=== PATIENT | male | born 1945 | race Caucasian/White ===

== ENCOUNTER 2023-04-11 19:18 | Outpatient (REF) | payer MEDICARE, SELFPAY | END 2023-04-11 19:19 | disposition home or self-care (01) | LOC: LAB 19:18 | PROVIDERS: PCP Nurse Practitioner Primary Care; Visit Provider Nurse Practitioner Primary Care | DX: N39.0 Urinary tract infection, site not specified (principal) | CPT/HCPCS: 87086; 87150; 87186 ==

== ENCOUNTER 2023-04-19 10:54 | Outpatient (OUT) | payer MEDICARE, SELFPAY ==
--- OUTSIDE RECORDS SUMMARY | 2023-04-19 11:05 | XMS_ITS | CCD ---
Author Name Unknown Address [address] [place] [address] Organization [facility] Care Team Providers Care Biodiesel Production Associate Name Role Phone JESSICA HUNTER Admitting Unavailable JESSICA HUNTER Attending Unavailable JESSICA HUNTER Consulting Unavailable SMITH, DR SMITH Primary Care Unavailable PAY, DR PRADO Attending Unavailable PAY, DR PRADO Admitting Unavailable ADILENE, DR FABI Kyle Consulting Unavailable MISC, DR SMITH Primary Care Unavailable PAY, DR PRADO Consulting Unavailable RUDY, DR GONZALEZ Consulting Unavailable MISC, DR SMITH Primary Care Unavailable HERNESTO, DR TRACY Admitting Unavailable JESSICA HUNTER Consulting Unavailable HERNESTO, DR TRACY Attending Unavailable FABI COBB Consulting Unavailable VAIBHAV ROJAS Consulting Unavailable Allergies Allergy Classification Reported Allergen(s) Allergy Type Date of Onset Reaction(s) Facility (1 source) Oxytetracycline Drug Allergy 2 [facility] Repository (1 source) Penicillins Drug allergy (disorder) 3 [facility] Problems Active Problems Problem Classification Problem Date Documented Da te Episodic/Chronic E Codes: Fall (1 source) Fall on same level due to ice and snow, initial encounter; Translations: [FALL SAME LEVEL D/T ICE SNOW INIT] Onset: 05-30-2022 Episodic Nausea and vomiting (1 source) Nausea; Translations: [NAUSEA] Onset: 04-28-2022 Episodic Open wounds of head; neck; and trunk (4 sources) Laceration without foreign body of scalp, initial encounter; Translations: [LACERATION W/O FB SCALP INITIAL ENC] Onset: 05-28-2022 Episodic Other aftercare (1 source) 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; Translations: [OTH USP CURRENT DRUG THERAPY] Onset: 05-30-2022 Episodic Other injuries and conditions due to external causes (1 source) Unspecified injury of head, initial encounter; Translations: [UNSPECIFIED INJURY HEAD INITIAL ENC] Onset: 05-30-2022 Episodic Poisoning by nonmedicinal substances (1 source) Toxic effect of carbon monoxide from utility gas, accidental (unintentional), initial encounter; Translations: [TOX EFF CO UTILITY GAS ACC INIT ENC] Onset: 04-28-2022 Episodic Screening and history of mental health and substance abuse codes (1 source) Personal history of nicotine dependence; Translations: [PERSONAL HISTORY OF NICOTINE DEPEND] Onset: 04-28-2022 Episodic Unclassified (3 sources) COUGH, UNSPECIFIED; Translations: [COUGH, UNSPECIFIED] Onset: 04-28-2022 Viral infection (1 source) COVID-19; Translations: [COVID-19] Onset: 04-28-2022 Past or Other Problems Problem Classification Problem Date Documented Da te Episodic/Chronic E Codes: Cut/pierceb (1 source) Contact with knife, initial encounter; Translations: [CONTACT WITH KNIFE INITIAL ENC] Onset: 11-17-2021 Episodic Immunizations and screening for infectious disease (1 source) Encounter for immunization; Translations: [ENCOUNTER FOR IMMUNIZATION] Onset: 11-17-2021 Episodic Open wounds of extremities (4 sources) Laceration without foreign body of left thumb without damage to nail, initial encounter; Translations: [LAC NO FB LT THUMB NO DMG NAIL INIT] Onset: 11-15-2021 Episodic Other aftercare (1 source) terminal carman (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 TECHNIQUE: CT Cervical spine without IV contrast. Coronal and sagittal reformations were performed. Dose reduction techniques were achieved by using automated exposure control and/or adjustment of mA and/or kV according to patient size and/or use of iterative reconstruction technique. FINDINGS: Maintenance of the normal cervical lordosis. Vertebral body heights and alignments exhibit no fracture or listhesis. Age-related intervertebral disc space narrowing, endplate and facet changes. The dens and lateral masses of C1 are symmetric. No prevertebral soft tissue edema. Atherosclerosis of the left greater than right carotid bulbs. The superficial subcutaneous soft tissues are unremarkable. No visualized irregularity of the airway, thoracic inlet or pulmonary apices. IMPRESSION: No acute abnormality Electronically authenticated by: FABI COBB Date: 2022-05-28 20:53 Normal [facility] CT HEAD WO CONon 05-28-2022 CT HEAD WO CON EXAMINATION: CT HEAD WO CON HISTORY: UNSPECIFIED INJURY OF HEAD, INITIAL ENCOUNTER COMPARISON: None. TECHNIQUE: CT examination of the head without IV contrast. Dose reduction techniques were achieved by using automated exposure control and/or adjustment of mA and/or kV according to patient size and/or use of iterative reconstruction technique. FINDINGS: Gabriel/white matter differentiation is intact throughout both cerebral hemispheres. There is a 10 mm low-density focus in the left centrum semiovale. Additional, smaller wedge-shaped low density in the subinsular region as seen on the left measuring approximately 8 mm. No intracranial hemorrhage. No midline shift. No hydrocephalus. The abnormality seen at the genu of the corpus callosum. Bilateral pseudophakia. No herniation. IMPRESSION: No intracranial hemorrhage. There is an ill-defined low-density focus in the left centrum semiovale, and a smaller focus in the left subinsular region, as well as low attenuating density within the corpus callosum. Findings are indeterminate for a chronic abnormality, such as small vessel ischemic change or old infarcts or sequelae of trauma, versus acute, such as diffuse axonal injury or infarct. MRI would be helpful, if clinically indicated. Electronically authenticated by: VAIBHAV ROJAS Date: 2022-05-28 21:17 Normal [facility] l Covid-19 PCR (CVDTBH)on 04-01 SARS-CoV-2 (COVID-19) RNA VINH+probe Ql (Unsp spec) Detected Critically abnormal NOT DETECTED [facility] Comment on above: Result Comment: This test is not yet approved or cleared by the [place] FDA. When there are no FDA-approved or cleared tests available, and other criteria are met, FDA can make tests available under an emergency access mechanism called an Emergency Use Authorization (EUA). The EUA for this test is supported by the [place] of Health and Human Service's declaration that circumstances exist to justify the emergency use of in vitro diagnostics for the detection and/or diagnosis of the virus that causes COVID-19. This EUA will remain in effect for the duration of the COVID-19 declaration justifying emergency of IVDs, unless it is terminated or revoked by the FDA (after which the test may no longer be used). Performed By: #### C VDTB #### [facility] [address] [place] [address] Dr. James Green INFLUENZA A AND B [facility] 04-01 [facility] SEE BELOW Normal [facility] ospital Comment on above: Result Comment: Nega tive for Flu A protein angiten. Infection due to Flu A cannot be ruled out. Flu A angiten in the sample may be below the detection limit of the test. Performed By: #### I NFLUAB #### [facility] [address] [place] [address] Dr. James [facility] SEE BELOW Normal [facility] Comment on above: Result Comment: Nega tive for Flu B protein antigen. Infection due to Flu B cannot be ruled out. Flu B antigen in the sample may be below the detection limit of the test. Performed By: #### I NFLUAB #### [facility] [address] [place] [address] Dr. James Green INFLUENZA A AG Negative Normal NEGATIVE SEE COMMENT [facility] Comment on above: Performed By: #### I NFLUAB #### [facility] [address] [place] [address] Dr. James Green INFLUENZA B AG Negative Normal NEGATIVE SEE COMMENT [facility] Comment on above: Performed By: #### I NFLUAB #### [facility] [address] [place] [address] Dr. James Green XR CHEST 1 Von 04-27-2022 XR CHEST 1 V EXAMINATION: XR CHES T 1 V HISTORY: SHORTNESS OF BREATH COMPARISON: 10/23/2013 TECHNIQUE: Portable FINDINGS: LUNGS: Low lung volumes. left upper lobe nodule, stable, granuloma. No new focal parenchymal infiltrates VASCULATURE: No increased pulmonary vasculature. PLEURA: No pneumothorax, effusion, or pleural thickening. CARDIAC: No cardiomegaly or cardiac silhouette abnormality. MEDIASTINUM: Calcifications consistent with old granulomatous disease. Aortic atherosclerosis BONES: No fracture or visible bone lesion. OTHER: Negative. IMPRESSION: Low volume exam. No focal infiltrate Electronically authenticated by: FABI HEAD Date: 2022-04-27 07:47 Normal [facility] Encounters Encounter Date Encounter Type Care Provider Facility Start: 05-28-2022 End: 05-28-[address] DOCTOR HERNANDEZ Facility:[facility] Start: 04-27-2022 End: 04-27-[address] JOHAN ROSEN Facility:[facility] Start: 11-15-2021 End: 11-15-2021 ambulatory JESSICA ELSA Facility:[facility] Payers Date Payer Category Payer Unknown [id number] 1961 Medicare [id number] 1945 Unknown [id number] [id number] 1945 Unknown [id number] [id number] [id number] 1945 Unknown [id number] Summary Purpose Family History No Family History Records Found Advance Directives No Advanced Directives Records Found Additional Source Comments (unrecognized sect ion and content) No Status Records Found INFORMATION SOURCE (unrecogn ized section and content) DATE CREATED AUTHOR 05/30/2022 [facility] FOR RECORDS PERTAINING TO PATIENTS WHO ARE OR HAVE BEEN ENROLLED IN A CHEMICAL DEPENDENCY/SUBSTANCEABUSE PROGRAM, SOME INFORMATION MAY BE OMITTED. This clinical summary was aggregated from multiple sources. Caution should be exercised in using it in the provision of clinical care. This summary normalizes information from multiple sources, and as a consequence, information in this document may materially change the coding, format and clinical context of patient data. In addition, data may be omitted in some cases. CLINICAL DECISIONS SHOULD BE BASED ON THE PRIMARY CLINICAL RECORDS. [facility] [employer] provides no warranty or guarantee of the accuracy or completeness of information in this document.
[2023-04-19 11:47] LABS: Alanine Aminotransferase 26 U/L (16-63); Albumin Globulin Ratio 0.8; Albumin Level 3.6 g/dL (3.4-5.0); Alkaline Phosphatase 55 U/L (46-116); Anion Gap 13.8; Aspartate Amino Transferase 24 U/L (15-37); BUN Creatinine Ratio 20.7; Bilirubin Total 0.3 mg/dL (0.2-1.0); Calcium 9.5 mg/dL (8.5-10.1); Chloride 103 mmol/L (98-107); Chol HDL Ratio 3.7; Cholesterol 172 mg/dL (<=200); Estimated Average Glucose 117 mg/dL; Estimated GFR (African America >60 (>=60); Estimated GFR (Non-African Ame 51 (>=60); Globulin 4.5 g/dL; Glucose 96 mg/dL (74-106); Glycohemoglobin A1C 5.7 % (4.5-6.2); HDL Cholesterol 46 mg/dL (40-60); LDL Cholesterol Calculated 101.8 mg/dL; Potassium 4.8 mmol/L (3.5-5.1); Sodium 139 mmol/L (136-145); Total Protein 8.1 g/dL (6.4-8.2); Triglycerides 121 mg/dL (<=150); VLDL CHOLESTEROL 24.2 mg/dL
[2023-04-19 12:24] LABS: Basophils Percent Auto 0.5 % (0.2-2.0); Eosinophils Absolute Auto 0.2 10^3/uL (0.0-0.7); Eosinophils Percent Auto 2.5 % (0.9-7.0); Hematocrit 35.4 % (42.0-54.0); Hemoglobin 11.2 g/dL (14.0-18.0); Immature Granulocytes Abs Auto 0.01 10^3/uL (0.00-0.03); Immature Granulocytes Pct Auto 0.1 % (0.0-0.5); Lymphocytes Absolute Auto 1.7 10^3/uL (1.2-3.8); Lymphocytes Percent Auto 20.9 % (20.5-60.0); Mean Corpuscular HGB Conc 31.6 g/dL (29.9-35.2); Mean Corpuscular Hemoglobin 29.2 pg (25.9-34.0); Mean Corpuscular Volume 92.2 fL (80.0-94.0); Mean Platelet Volume 12.4 fL (9.5-13.5); Monocytes Absolute Auto 0.4 10^3/uL (0.3-0.8); Monocytes Percent Auto 4.7 % (1.7-12.0); Neutrophils Absolute Auto 5.7 10^3/uL (1.4-6.5); Neutrophils Percent Auto 71.3 % (43.0-75.0); Platelet Count 204 10^3/uL (150-450); Red Blood Count 3.84 10^6/uL (4.70-6.10); White Blood Count 7.9 10^3/uL (4.0-11.0)
[2023-04-20 06:09] LABS: HCV Ab Non Reactive (Non Reactive); HIV Ab/p24 Ag Screen Non Reactive (Non Reactive)
== END 2023-04-19 10:55 | disposition home or self-care (01) ==
LOC: LAB 10:56
PROVIDERS: PCP Nurse Practitioner Primary Care; Visit Provider Nurse Practitioner Primary Care
DX: Z00.00 Encounter for general adult medical examination without abnormal findings (principal); Z11.59 Encounter for screening for other viral diseases; Z11.4 Encounter for screening for human immunodeficiency virus [HIV]; Z13.6 Encounter for screening for cardiovascular disorders
CPT/HCPCS: 36415; 80053; 80061; 83036; 85025; 86803; 87389

== ENCOUNTER 2023-04-30 22:44 | Observation (INO) | payer MEDICARE, SELFPAY ==
[2023-04-30 22:49] VITALS: PULSE 47
--- OUTSIDE RECORDS SUMMARY | 2023-04-30 22:50 | XMS_ITS | CCD ---
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 TECHNIQUE: [...] FABI COBB Date: 2022-05-28 20:53 Normal [facility] CT HEAD WO CONon 05-28-2022 CT [...] VAIBHAV ROJAS Date: 2022-05-28 21:17 Normal [facility] Covid-19 PCR (CVDTBH)on 04-01 SARS-CoV-2 (COVID-19) RNA VINH+probe Ql (Unsp spec) Detected Critically abnormal NOT DETECTED [facility] Comment on above: Result Comment: This test is not yet az roved or cleared by the [place] FDA. When there are no FDA-approved or cleared tests available, and other criteria are met, FDA can make tests available under an emergency access mechanism called an Emergency Use Authorization (EUA). The EUA for this test is supported by the Cl[employer] Fin[employer] of Health and Human Service's declaration that [...] used). Performed By: #### C VDTB #### [facility] [address] [place] [address] Dr. James Green INFLUENZA A AND B [facility] 04-01 [facility] SEE BELOW Normal [facility] Comment on above: Result Comment: Negative for Flu A prote in angiten. Infection due to Flu A cannot be ruled out. Flu A angiten in the sample may be below the detection limit of the test. Performed By: #### I NFLUAB #### [facility] [address] [place] [address] Dr. James Green INFLUBANNER SEE BELOW Normal [facility] Comment on above: Result Comment: Negative for Flu B prote in antigen. Infection due to Flu B cannot be ruled out. Flu B antigen in the sample may be below the detection limit of the test. Performed By: #### I NFLUAB #### [facility] [address] [place] [address] Dr. James Green INFLUENZA A AG Negative Normal NEGATIVE SEE COMMENT [facility] Comment on above: Performed By: #### INFLUAB #### [facility] [address] [place] [address] Dr. James Green INFLUENZA B AG Negative Normal NEGATIVE SEE COMMENT [facility] Comment on above: Performed By: #### INFLUAB #### [facility] [address] [place] [address] Dr. James Green XR CHEST 1 Von [...] by: FABI HEAD Date: 2022-04-27 07:47 Normal [facility] Encounters Encounter Date Encounter Type Care Provider Facility Start: 05-28-2022 End: 05-28-[address] DOCTOR HERNANDEZ Facility:[facility] Start: 04-27-2022 End: 04-27-[address] JOHAN ROSEN Facility:[facility] Start: 11-15-2021 End: 11-15-2021 ambulatory JESSICA ELSA Facility:[facility] Payers Date Payer Category Payer Unknown [id number] 1961 Medicare [id number] 1945 Unknown [id number] [id number] [id number] 1945 Unknown [id number] [id number] [id number] 1945 Unknown [id number] [id number] [id number] Summary Purpose Family History No Family History Records Found Advance Directives No Advanced Directives Records Found Additional Source Comments (unrecognized sect ion and content) No Status Records Found INFORMATION SOURCE (unrecogn ized section and content) DATE CREATED AUTHOR 05/30/2022 [facility] FOR RECORDS PERTAINING TO PATIENTS WHO [...] BE BASED ON THE PRIMARY CLINICAL RECORDS. [employer] provides no warranty or guarantee of the accuracy or completeness of information in this document.
--- NOTE | 2023-04-30 22:51 | ECG_ITS ---
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
--- NOTE | 2023-04-30 22:51 | XR_ITS ---
The [address] [address] Patient Name: FLACO ACOSTA MRN: [id number] date: 1945 Sex: M Assigned Patient Location: ER Current Patient Location: ER Accession/Order Number: [id number] Exam Date: 04/30/2023 23:00 Report Date: 05/01/2023 00:00 At the request of: DEMARCUS ERIC Procedure: XR chest 1V CHEST X-RAY HISTORY: Chest pain COMPARISON: None. TECHNIQUE: 1 view chest is submitted for review. FINDINGS: There is trace blunting of the left costophrenic angle. The lungs are adequately expanded without evidence for acute infiltrate or effusion. The cardiac silhouette is enlarged. Pulmonary vascularity is mildly prominent. Osseous structures do not demonstrate any acute abnormality. . . XR/XR chest 1V IMPRESSION: Cardiomegaly with trace left-sided effusion. Electronically authenticated by: SHAHNAZ DUNCAN Date: 05/01/2023 00:00
[2023-04-30 22:52] VITALS: BP 165/67; PULSE 46; RESP 20; TEMP 36.5; O2SAT 98; BMI 32.5
[2023-04-30 23:10] LABS: Basophils Percent Auto 0.5 % (0.2-2.0); Eosinophils Absolute Auto 0.4 10^3/uL (0.0-0.7); Eosinophils Percent Auto 5.3 % (0.9-7.0); Hematocrit 31.6 % (42.0-54.0); Hemoglobin 10.2 g/dL (14.0-18.0); Immature Granulocytes Abs Auto 0.01 10^3/uL (0.00-0.03); Immature Granulocytes Pct Auto 0.1 % (0.0-0.5); Lymphocytes Percent Auto 26.8 % (20.5-60.0); Mean Corpuscular HGB Conc 32.3 g/dL (29.9-35.2); Mean Corpuscular Hemoglobin 29.7 pg (25.9-34.0); Mean Corpuscular Volume 91.9 fL (80.0-94.0); Mean Platelet Volume 12.2 fL (9.5-13.5); Monocytes Absolute Auto 0.6 10^3/uL (0.3-0.8); Neutrophils Absolute Auto 4.5 10^3/uL (1.4-6.5); Neutrophils Percent Auto 59.3 % (43.0-75.0); Platelet Count 167 10^3/uL (150-450); Red Blood Count 3.44 10^6/uL (4.70-6.10); Red Cell Distribution Width 14.6 % (11.0-15.0); White Blood Count 7.5 10^3/uL (4.0-11.0)
[2023-04-30] MEDS: ASPIRIN 81 MG TAB.CHEW 162 MG PO (23:16)
[2023-04-30] MEDS: ATROPINE SULFATE 0.4 MG/ML VIAL IVP (23:16)
[2023-04-30 23:26] LABS: Anion Gap 12.5; BUN Creatinine Ratio 20.5; Calcium 9.2 mg/dL (8.5-10.1); Carbon Dioxide 24.4 mmol/L (21.0-32.0); Chloride 106 mmol/L (98-107); Estimated GFR (African America 56 (>=60); Estimated GFR (Non-African Ame 47 (>=60); Glucose 137 mg/dL (74-106); Potassium 4.9 mmol/L (3.5-5.1); Sodium 138 mmol/L (136-145); Troponin I High Sensitivity 13.9 pg/mL (4.0-76.1)
[2023-04-30 23:55] VITALS: BP 139/67; PULSE 47; RESP 16; O2SAT 98
--- NOTE | 2023-04-30 23:55 | ED_ITS ---
HPI - Chest Pain General Chief Complaint: Chest Pain Stated Complaint: Chest Pain Time Seen by Provider: 04/30/23 22:47 Source: patient Mode of arrival: Carry Limitations: no limitations History of Present Illness HPI narrative: patient arrived by private car - brought by his caregiver, who calls him Eric - for evaluation after about a month and a half of shortness of breath with exertion. He had 2 cardiac stents placed in 2004 at one of the hospitals in [place] - he believes it is [facility]. [facility] and he said that it is very difficult to get an appointment in a timely manner. He told me that he experienced midline lower abdominal chest pain near the bottom of my rib cage that has been intermittent since it began yesterday. His caregiver told me that any time he gets up to walk around or exert himself over the last few weeks, he appears out of breath. No fever or cough. Related Data Home Medications Medication Instructions Recorded Confirmed calcium carbonate 600 mg-vitamin 1 tab PO DAILY 04/30/23 04/30/23 D3 10 mcg (400 unit) tablet (Calcium 600 + D(3)) clopidogrel 75 mg tablet 75 mg PO DAILY 04/30/23 04/30/23 cyanocobalamin (vitamin B-12) 1,000 mcg PO DAILY 04/30/23 04/30/23 1,000 mcg capsule diltiazem HCl 180 mg 180 mg PO DAILY 04/30/23 04/30/23 capsule,extended release 24 hr (Cardizem CD) metoprolol tartrate 50 mg tablet 50 mg PO DAILY 04/30/23 04/30/23 (Lopressor) spironolactone 25 mg tablet 25 mg PO DAILY 04/30/23 04/30/23 (Aldactone) vit C 250 mg-vit E 90 mg-zinc 40 1 tab PO BID 04/30/23 04/30/23 mg-copper 1 [id number] capsule (PreserVision AREDS-2) Allergies Allergy/AdvReac Type Severity Reaction Status Date / Time Penicillins Allergy Hives Verified 04/30/23 23:01 [facility] Social History Smoking status: Former smoker Exam Narrative Exam Narrative: Nurses notes and vital signs reviewed and patient is not hypoxic. afebrile General: Well-appearing and in no apparent distress. Skin: Warm, dry, no pallor noted. Eye: Pupils are equal, round and EOMI. No scleral icterus. Cardiovascular: Regular Rate and Rhythm without murmur, gallop or rub. Respiratory: No accessory muscle use or respiratory distress. Lungs are clear to auscultation, no wheezing, rales or rhonchi Chest Wall: no tenderness, crepitus or subcutaneous emphysema Musculoskeletal: normal ROM, no calf or popliteal tenderness, no lower extremity edema/swelling GI: Abdomen is soft, non-distended. Normal bowel sounds. No tenderness to palpation. No rebound, guarding, or rigidity noted. Neurological: A&O x4. No cranial nerve dysfunction observed. No truncal ataxia. Moves all extremities. Sensation intact. Psychiatric: Cooperative and interactive. Normal mood and affect. Constitutional Vital Signs, click to edit/add: Last Vital Signs Temp 97.7 F 04/30/23 22:52 Pulse 48 L 05/01/23 01:14 Resp 20 05/01/23 01:14 BP 124/49 05/01/23 01:14 Pulse Ox 96 05/01/23 01:14 O2 Del Method Room Air 05/01/23 01:14 Course Vital Signs Vital signs: Vital Signs Temperature 97.7 F 04/30/23 22:52 Pulse Rate 46 L 04/30/23 22:52 Respiratory Rate 20 04/30/23 22:52 Blood Pressure 165/67 H 04/30/23 22:52 Pulse Oximetry 98 04/30/23 22:52 Oxygen Delivery Method Room Air 04/30/23 22:52 Temperature 97.7 F 04/30/23 22:52 Pulse Rate 48 L 05/01/23 01:14 Respiratory Rate 20 05/01/23 01:14 Blood Pressure 124/49 05/01/23 01:14 Pulse Oximetry 96 05/01/23 01:14 Oxygen Delivery Method Room Air 05/01/23 01:14 MDM - Chest Pain MDM Narrative Medical decision making narrative: Patient took two nitroglycerin at home for the pain, which is now gone . He was placed on air sampling and monitoring and EKG obtained. Blood drawn and sent for evaluation. Chest x-ray obtained. The patient was found to be bradycardic - HR 47bpm. He takes metoprolol and cardizem daily. No recent change in med dose. He was given Atropine without any change. CBC, BMP normal except for elevated BUN and Cr - they were the same on 04/19 and I do not have values prior to 04/19 for comparison. Patient and - with the patient's permission - caregiver informed of results and of my suspicion that the bradycardia is due to the cardizem and the metoprolol that he takes - and that the bradycardia is causing the exertional dyspnea. Repeat troponin obtained at 0054. Result was decreased when compared to the 1st. Call placed to the tele-hospitalist to discuss admission, SDU, telemetry, Observation. Plan is for the beta victor hugo and calcium channel victor hugo to be held and reassess when the heart rate increases. Dr Hayden and I discussed the case and she agreed to admit the patient to Dr Sheppard's service. Medical Records Data Attestation: I reviewed the patient's medical records. Medical records narrative: The patient has a card revealiong that at [facility] he had a stent placed in the LAD and the RCA. Lab Data Attestation: I reviewed the patient's lab results. Labs: Lab Results 04/30/23 05/01/23 Range/Units 22:52 00:57 WBC 7.5 (4.0-11.0) 10^3/uL RBC 3.44 L (4.70-6.10) 10^6/uL Hgb 10.2 L (14.0-18.0) g/dL Hct 31.6 L (42.0-54.0) % MCV 91.9 (80.0-94.0) fL MCH 29.7 (25.9-34.0) pg MCHC 32.3 (29.9-35.2) g/dL RDW 14.6 (11.0-15.0) % Plt Count 167 (150-450) 10^3/uL MPV 12.2 (9.5-13.5) fL Neut % (Auto) 59.3 (43.0-75.0) % Lymph % (Auto) 26.8 (20.5-60.0) % [place] % (Auto) 8.0 (1.7-12.0) % Eos % (Auto) 5.3 (0.9-7.0) % Baso % (Auto) 0.5 (0.2-2.0) % Neut # (Auto) 4.5 (1.4-6.5) 10^3/uL Lymph # (Auto) 2.0 (1.2-3.8) 10^3/uL [place] # (Auto) 0.6 (0.3-0.8) 10^3/uL Eos # (Auto) 0.4 (0.0-0.7) 10^3/uL Baso # (Auto) 0.0 (0.0-0.1) 10^3/uL Abs Immat Gran (auto) 0.01 (0.00-0.03) 10^3/uL Imm/Tot Granulo (auto) 0.1 (0.0-0.5) % Sodium 138 (136-145) mmol/L Potassium 4.9 (3.5-5.1) mmol/L Chloride 106 (98-107) mmol/L Carbon Dioxide 24.4 (21.0-32.0) mmol/L Anion Gap 12.5 BUN 30.0 H (7.0-18.0) mg/dL Creatinine 1.46 H (0.70-1.30) mg/dL Est GFR ( Amer) 56 L (>=60) Est GFR (Non-Af Amer) 47 L (>=60) BUN/Creatinine Ratio 20.5 Glucose 137 H (74-106) mg/dL Calcium 9.2 (8.5-10.1) mg/dL Troponin I High Sens 13.9 12.6 (4.0-76.1) pg/mL NT-Pro-B Natriuret Pep 783.0 (<=1800.0) pg/mL Imaging Data Chest x-ray: Radiologist's impression: Patient Name: FLACO ACOSTA MRN: [id number] date: 1945 Sex: M Assigned Patient Location: ER Current Patient Location: ER Accession/Order Number: [id number] Exam Date: 04/30/2023 23:00 Report Date: 05/01/2023 00:00 At the request of: DEMARCUS ERIC Procedure: XR chest 1V CHEST X-RAY HISTORY: Chest pain COMPARISON: None. TECHNIQUE: 1 view chest is submitted for review. FINDINGS: There is trace blunting of the left costophrenic angle. The lungs are adequately expanded without evidence for acute infiltrate or effusion. The cardiac silhouette is enlarged. Pulmonary vascularity is mildly prominent. Osseous structures do not demonstrate any acute abnormality. . . IMPRESSION: Cardiomegaly with trace left-sided effusion. Electronically authenticated by: SHAHNAZ DUNCAN Date: 05/01/2023 00:00 ECG Data Attestation: I personally reviewed and interpreted this ECG as follows: Interpretation: EKG interpretation: Emergency Department physician interpretation. Valeriy sinus rhythm at 47bpm. Normal axis, 1st degree AVB. no ST segment elevation or deep depression. Discharge Plan Discharge Chief Complaint: Chest Pain Clinical Impression: Symptomatic bradycardia, Exertional dyspnea Patient Disposition: Admitted as Observation Time of Disposition Decision: 23:57 Prescriptions / Home Meds: No Action clopidogrel 75 mg tablet 75 mg PO DAILY metoprolol tartrate [Lopressor] 50 mg tablet 50 mg PO DAILY diltiazem HCl [Cardizem CD] 180 mg capsule,extended release 24hr 180 mg PO DAILY spironolactone [Aldactone] 25 mg tablet 25 mg PO DAILY PreserVision AREDS-2 250-90-40-1 mg capsule 1 tab PO BID cyanocobalamin (vitamin B-12) 1,000 mcg capsule 1,000 mcg PO DAILY calcium carbonate-vitamin D3 [Calcium 600 + D(3)] 600 mg-10 mcg (400 unit) tablet 1 tab PO DAILY Additional Instructions: SHAMA ferrer, OBS Referrals: EVAN ESCOBAR APRN [Primary Care Provider] - 1 week
[2023-05-01] VITALS (43 sets, daily range): BP systolic 124–157; BP diastolic 46–70; PULSE 43–61; RESP 10–22; TEMP 36.5; O2SAT 95–99; BMI 33.4
[2023-05-01 01:18] LABS: Troponin I High Sensitivity 12.6 pg/mL (4.0-76.1)
--- OUTSIDE RECORDS SUMMARY | 2023-05-01 02:49 | XMS_ITS | CCD ---
Author Name Unknown Address [address] [place] [address] Organization [facility] Care Team Providers Care Oakes Machine Operator Name Role Phone JESSICA HUNTER Admitting Unavailable [...] (1 source) Oxytetracycline Drug Allergy 2 [facility] Repository (1 source) Penicillins Drug allergy (disorder) 3 [facility] Repository Problems Active Problems Problem Classification Problem [...] 05-28-2022 Episodic Other aftercare (1 source) Other rodent exterminator (current) drug therapy; Translations: [OTH PRODUCT MGMT DEV MANAGER CURRENT DRUG THERAPY] Onset: 05-30-2022 Episodic Other [...] service (current) use of antithrombotics/an tiplatelets; Translations: [PRODUCT MGMT DEV MANAGER ANTITHROMBOT/ANTIP LATLETS] Onset: 11-17-2021 Episodic Unclassified (1 [...] FABI COBB Date: 2022-05-28 20:53 Normal [facility] CT HEAD WO CONon 05-28-2022 CT HEAD [...] Date: 2022-05-28 21:17 Normal [facility] Covid-19 PCR (CVDTBH)on 04-01 SARS-CoV-2 (COVID-19) RNA VINH+probe Ql (Unsp spec) Detected Critically abnormal NOT DETECTED [facility] Comment on above: Result Comment: This test is not yet az roved or cleared by the [place] FDA. When there are no FDA-approved or cleared tests available, and other criteria are met, FDA can make tests available under an emergency access mechanism called an Emergency Use Authorization (EUA). The EUA for this test is supported by the [place] of Health and Human Service's declaration that [...] used). Performed By: #### C VDTB #### [facility] Laboratory [address] [place] [address] Dr. James Green INFLUENZA A AND B [facility] 04-01 [facility] SEE BELOW Normal [facility] Comment on above: Result Comment: Negative for Flu A prote in angiten. Infection due to Flu A cannot be ruled out. Flu A angiten in the sample may be below the detection limit of the test. Performed By: #### I NFLUAB #### [facility] [address] [place] [address] Dr. James Green [facility] [place] SEE BELOW Normal [facility] Comment on above: Result Comment: Negative for Flu B prote in antigen. Infection due to Flu B cannot be ruled out. Flu B antigen in the sample may be below the detection limit of the test. Performed By: #### I NFLUAB #### [facility] [address] [place] [address] Dr. James Green INFLUENZA A AG Negative Normal NEGATIVE SEE COMMENT [facility] Comment on above: Performed By: #### INFLUAB #### [facility] [address] [place] [address] Dr. James Green INFLUENZA B AG Negative Normal NEGATIVE SEE COMMENT [facility] Comment on above: Performed By: #### INFLUAB #### [facility] [address] [place] [address] Dr. James Green XR CHEST 1 Von [...] by: FABI HEAD Date: 2022-04-27 07:47 Normal [facility] Encounters Encounter Date Encounter Type Care Provider Facility Start: 05-28-2022 End: 05-28-[address] DOCTOR HERNANDEZ Facility:[facility] Start: 04-27-2022 End: 04-27-[address] JOHAN ROSEN Facility:[facility] Start: 11-15-2021 End: 11-15-2021 ambulatory JESSICA ELSA Facility:[facility] Payers Date Payer Category Payer Unknown [id number] 1961 Medicare [id number] 1945 Unknown [id number] 1945 Unknown [id number] 1945 Unknown [id number] Summary Purpose Family History No Family History Records Found Advance Directives No Advanced Directives Records Found Additional Source Comments (unrecognized sect ion and content) No Status Records Found INFORMATION SOURCE (unrecogn ized section and content) DATE CREATED AUTHOR 05/30/2022 [facility] FOR RECORDS PERTAINING TO PATIENTS WHO [...] BE BASED ON THE PRIMARY CLINICAL RECORDS. [employer] provides no warranty or guarantee of the accuracy or completeness of information in this document.
[2023-05-01] MEDS: CLOPIDOGREL BISULFATE 75 MG TABLET PO (10:23)
[2023-05-01] MEDS: SPIRONOLACTONE 25 MG TABLET PO (10:23)
--- NOTE | 2023-05-01 15:18 | PM.HP ---
H&P: HPI History of Present Illness Chief complaint: Chest Pain SYMPTOMATIC BRADYCARDIA Narrative: 77 y/o male to ER with chest pain. History of CAD with stents last placed in 2004. C/o pain off and on all day and has noticed SOB with exertion for the past month. Any time he gets up and walks develops SOB. Took NTG and pain improved. To ER and found bradycardia with pulse in mid 40s. Tropin negative x 2 and BNP negative. Chest x-ray with cardiomegaly. Continued bradycardia and patient takes metoprolol and cardizem at home. Admitted for observation. Overall feels well. Not lightheaded when up and moving. No further chest pain. Review of Systems ROS Constitutional Reports: fatigue; Denies: fever or chills Cardiovascular Reports: chest pain; Denies: palpitations, edema or lightheadedness Respiratory Reports: shortness of breath; Denies: cough or wheezing Gastrointestinal Denies: abdominal pain, nausea, vomiting or diarrhea Genitourinary Denies: painful urination [facility]SH [facility] Medical History (Updated 05/01/23 @ 10:23 by Meir Sheppard MD) Symptomatic bradycardia ?R00.1 - Bradycardia, unspecified (ICD-10) UTI (urinary tract infection) ?N39.0 - Urinary tract infection, site not specified (ICD-10) Prostate cancer ?C61 - Malignant neoplasm of prostate (ICD-10) Left-sided weakness ?R53.1 - Weakness (ICD-10) Stroke ?I63.9 - Cerebral infarction, unspecified (ICD-10) Surgical History (Updated 05/01/23 @ 03:04 by Adrianne Rios) H/O hernia repair ?Z98.890 - Other specified postprocedural states (ICD-10) ?Z87.19 - Personal history of other diseases of the digestive system (ICD-10) History of appendectomy ?Z90.49 - Acquired absence of other specified parts of digestive tract (ICD-10) Hx of tonsillectomy ?Z90.89 - Acquired absence of other organs (ICD-10) H/O heart artery stent ?Z95.5 - Presence of coronary angioplasty implant and graft (ICD-10) Social History Smoking status: Former smoker Highest level of school completed/degree received: some college, no degree Meds Home Medications and Allergies Home Medications Medication Instructions Recorded Confirmed Type calcium carbonate 600 mg-vitamin 1 tab PO DAILY 04/30/23 04/30/23 History D3 10 mcg (400 unit) tablet (Calcium 600 + D(3)) clopidogrel 75 mg tablet 75 mg PO DAILY 04/30/23 04/30/23 History cyanocobalamin (vitamin B-12) 1,000 mcg PO DAILY 04/30/23 04/30/23 History 1,000 mcg capsule spironolactone 25 mg tablet 25 mg PO DAILY 04/30/23 04/30/23 History (Aldactone) vit C 250 mg-vit E 90 mg-zinc 40 1 tab PO BID 04/30/23 04/30/23 History mg-copper 1 ut-mpolkd-rituan capsule (PreserVision AREDS-2) Allergies Allergy/AdvReac Type Severity Reaction Status Date / Time Penicillins Allergy Hives Verified 04/30/23 23:01 Exam Constitutional Vital Signs, click to edit/add: Last Vital Signs Temp 97.7 F 05/01/23 07:35 Pulse 51 L 05/01/23 15:00 Resp 17 05/01/23 14:43 BP 151/70 H 05/01/23 11:05 Pulse Ox 98 05/01/23 11:05 O2 Del Method Room Air 05/01/23 07:35 Documenting provider has reviewed patient's vital signs: yes Common normals: no apparent distress, oriented x3 and alert HENMT Common normals: normocephalic Eye Common normals: PERRL and EOMs intact bilaterally Respiratory Common normals: normal respiratory effort and clear to auscultation bilaterally Cardio Common normals: regular rhythm, no gallops, no murmurs and no rub Rate: bradycardic GI Common normals: Normal to inspection, nondistended, normoactive bowel sounds present and non-tender Extremity Common normals: no pedal edema Results Labs Labs: Short CBC 04/30/23 Range/Units 22:52 WBC 7.5 (4.0-11.0) 10^3/uL Hgb 10.2 L (14.0-18.0) g/dL Hct 31.6 L (42.0-54.0) % Plt Count 167 (150-450) 10^3/uL BMP 04/30/23 22:52 Sodium 138 Potassium 4.9 Chloride 106 Carbon Dioxide 24.4 BUN 30.0 H Creatinine 1.46 H Glucose 137 H Calcium 9.2 Assessment and Plan Assessment and Plan (1) Drug-induced bradycardia: (2) Exertional dyspnea: (3) Ischemic cardiomyopathy: (4) CAD (coronary artery disease): (5) Hypertension: (6) Stage 3a chronic kidney disease (CKD): Plan To ER with chest pain and SOB but found bradycardia. Patient poor historian but medication suggests history of afib. Metoprolol and cardizem held. Pulse stable in mid 50s and patient without symptoms. Ambulating around room and felt well. Discharge home. Will continue to hold metoprolol and cardizem. Contact cardiology for f/u in 1-2 weeks. Resume other medication as directed.
--- NOTE | 2023-05-01 15:51 | PC.NURSE ---
1525 pt noted to have wide complex ventricular rhythm in the 80's on the monitor. nurse entered room, pt resting quietly with eyes closed. awakened for assessment and vs. pt denies cp, dizziness or lightheadedness. dr marcial notified, no new orders received.
== END 2023-05-01 17:33 | disposition home or self-care (01) ==
LOC: ER 05-01 01:57 → ICU 05-01 02:47
PROVIDERS: Admitting Provider Family Medicine; Emergency Provider Emergency Medicine; PCP Nurse Practitioner Primary Care; Visit Provider Family Medicine
DX: R00.1 Bradycardia, unspecified (principal); R06.09 Other forms of dyspnea; I25.5 Ischemic cardiomyopathy; I25.10 Atherosclerotic heart disease of native coronary artery without angina pectoris; I12.9 Hypertensive chronic kidney disease with stage 1 through stage 4 chronic kidney disease, or unspecified chronic kidney disease; N18.31 Chronic kidney disease, stage 3a; T46.1X5A Adverse effect of calcium-channel blockers, initial encounter; T44.7X5A Adverse effect of beta-adrenoreceptor antagonists, initial encounter; Z95.5 Presence of coronary angioplasty implant and graft; Z79.899 Other long term (current) drug therapy; Z90.49 Acquired absence of other specified parts of digestive tract; Z98.890 Other specified postprocedural states; Z87.440 Personal history of urinary (tract) infections; Z86.73 Personal history of transient ischemic attack (TIA), and cerebral infarction without residual deficits; Z87.891 Personal history of nicotine dependence; Z85.46 Personal history of malignant neoplasm of prostate
CPT/HCPCS: 36415; 71045; 80048; 83880; 84484; 85025; 93005; 96374; 99285; G0378

== ENCOUNTER 2023-05-23 12:53 | Outpatient (OUT) | payer MEDICARE, SELFPAY ==
--- OUTSIDE RECORDS SUMMARY | 2023-05-23 12:57 | XMS_ITS | CCD ---
Author Name Unknown Address [address] [place] [address] Organization [facility] Care Team Providers Care Pillowcase Sewer Name Role Phone JESSICA HUNTER Admitting Unavailable [...] (1 source) Oxytetracycline Drug Allergy 2 [facility] Repository (1 source) Penicillins Drug allergy (disorder) 3 [facility] Repository Problems Active Problems Problem Classification [...] 05-28-2022 Episodic Other aftercare (1 source) Other rat exterminator (current) drug therapy; Translations: [OTH SENIOR LIVING CURRENT DRUG THERAPY] Onset: 05-30-2022 Episodic Other [...] 11-15-2021 Episodic Other aftercare (1 source) terminal supervisor (current) use of antithrombotics/an tiplatelets; Translations: [SENIOR LIVING ANTITHROMBOT/ANTIP LATLETS] Onset: 11-17-2021 Episodic Unclassified (1 [...] FABI COBB Date: 2022-05-28 20:53 Normal [facility] CT HEAD WO CONon 05-28-2022 CT [...] VAIBHAV ROJAS Date: 2022-05-28 21:17 Normal [facility] Covid-19 PCR (CVDTBH)on 04-01 SARS-CoV-2 (COVID-19) RNA VINH+probe Ql (Unsp spec) Detected Critically abnormal NOT DETECTED [facility] Comment on above: Result Comment: This test is not yet az roved or cleared by the [place] FDA. When there are no FDA-approved or cleared tests available, and other criteria are met, FDA can make tests available under an emergency access mechanism called an Emergency Use Authorization (EUA). The EUA for this test is supported by the [place] of Health and Human Service's declaration that [...] used). Performed By: #### C VDTB #### [facility] [address] [place] [address] Dr. James Green INFLUENZA A AND B [facility] 04-01 [facility] SEE BELOW Normal [facility] Comment on above: Result Comment: Negative for Flu A prote in angiten. Infection due to Flu A cannot be ruled out. Flu A angiten in the sample may be below the detection limit of the test. Performed By: #### I NFLUAB #### [facility] [address] [place] [address] Dr. James [facility] Normal [facility] Comment on above: Result Comment: Negative for Flu B prote in antigen. Infection due to Flu B cannot be ruled out. Flu B antigen in the sample may be below the detection limit of the test. Performed By: #### I NFLUAB #### [facility] [address] [place] [address] Dr. James Green INFLUENZA A AG Negative Normal NEGATIVE SEE COMMENT [facility] Comment on above: Performed By: #### INFLUAB #### [facility] [address] [place] [address] Dr. James Green INFLUENZA B AG Negative Normal NEGATIVE SEE COMMENT [facility] Comment on above: Performed By: #### INFLUAB #### [facility] [address] [place] [address] Dr. James Green XR CHEST 1 Von [...] by: FABI HEAD Date: 2022-04-27 07:47 Normal [facility] Encounters Encounter Date Encounter Type Care Provider Facility Start: 05-28-2022 End: 05-28-[address] DOCTOR HERNANDEZ Facility:[facility] Start: 04-27-2022 End: 04-27-[address] JOHAN ROSEN Facility:[facility] Start: 11-15-2021 End: 11-15-2021 ambulatory JESSICA ELSA Facility:[facility] Payers Date Payer Category Payer Unknown [id number] 1961 Medicare [id number] 1945 Unknown [id number] 2.16.84 [id number] 1945 Unknown [id number] 2.16.84 [id number] 1945 Unknown [id number] [id number] [id number] Summary Purpose Family History No Family History Records Found Advance Directives No Advanced Directives Records Found Additional Source Comments (unrecognized sect ion and content) No Status Records Found INFORMATION SOURCE (unrecogn ized section and content) DATE CREATED AUTHOR 05/30/2022 [facility] FOR RECORDS PERTAINING TO PATIENTS WHO ARE [...] BE BASED ON THE PRIMARY CLINICAL RECORDS. [employer] provides no warranty or guarantee of the accuracy or completeness of information in this document.
--- NOTE | 2023-05-23 13:33 | CA_ITS ---
Patient Name: FLACO ACOSTA MR#: [id number] : 1945 Exam Date: 05/23/2023 Ordering Doctor: ROSA RAMOS ECHOCARDIOGRAM REPORT PROCEDURE: CA ECHO DOPPLER COMPLETE INDICATIONS: Dyspnea on exertion, stent, hypertension COMPARISON: None. DESCRIPTION: COMPLETE ECHOCARDIOGRAM Real-time transthoracic echocardiography with 2D, M-mode, spectral and color flow Doppler performed. QUALITY: Technically difficult due to patients condition. 72 , 240#, BSA 2.30 m2 LEFT VENTRICLE: Normal chamber size. Moderate concentric left ventricular hypertrophy. LV EF: Global left ventricular systolic function is hyperdynamic; visually estimated ejection fraction 65 to 70%. Unable to assess regional wall motion abnormalities. DIASTOLIC: Diastolic function is indeterminate. ATRIAL SEPTUM: Visually appears intact. LEFT ATRIUM: Normal chamber size. RIGHT ATRIUM: Normal chamber size. RIGHT VENTRICLE: Normal chamber size. Normal right ventricular systolic function. TRICUSPID VALVE: Normal mobility and thickness. No stenosis with no regurgitation. Unable to estimate right-sided pressures due to lack of measurable tricuspid regurgitation. MITRAL VALVE: Normal mobility and thickness. No evidence of mitral valve stenosis. There is no mitral annular calcification. No mitral regurgitation. AORTIC VALVE: Normal trileaflet appearance. No visible sclerosis. Normal leaflet mobility. No evidence of aortic valve stenosis. No aortic regurgitation. AORTIC ROOT: Normal diameter and appearance. PULMONIC VALVE: Normal thickness and mobility. No stenosis. No regurgitation. PERICARDIUM: No evidence of pericardial effusion. IVC: Collapses with inspirations. IVC is normal in size. PLEURA: CONCLUSION: 1. Global left ventricular systolic function is hyperdynamic; visually estimated ejection fraction is 65 to 70% 2. Moderately increased left ventricular wall thickness 3. Normal right ventricular size and systolic function 4. Diastolic function is indeterminate 5. Valves are poorly seen; no obvious valvular abnormalities Adult Echocardiography Procedure Report Left Ventricle LVEDD (3.7 - 5.6 cm): 5.27 cm LVESD (2.2 - 4.0 cm): 3.09 cm LVIVS thickness (0.6 - 1.2 cm): 1.50 cm LVPW thickness (0.5 - 1.0 cm): 1.37 cm e': 0.07 m/s E - e': 6.62 LVOT Max Gradient: 2.95 mm[Hg] LVOT Area (cm2): 0.86 m/s Peak Velocity (LVOT): 0.86 m/s Mean Velocity (LVOT): 0.57 m/s LVOT Diameter 2.11 cm Left Atrium Left Atrium Systolic Dimension: 4.57 cm Mitral Valve MV E to A Ratio: 0.64 Mitral Valve A-Wave Peak Velocity: 0.70 m/s Mitral Valve E-Wave Peak Velocity: 0.45 m/s Right Ventricle Aorta AO Root Diam: 3.79 cm Ascending Ao Diam: 3.19 cm Aortic Valve AoV Area ([place]): 2.58 cm2, 2.58 cm2 AoV Area (VTI): 2.90 cm2, 2.90 cm2 Peak Velocity(Antegrade Flow): 1.16 m/s Peak Gradient(Antegrade Flow): 5.42 mm[Hg] Mean Velocity(Antegrade Flow): 0.82 m/s Mean Gradient(Antegrade Flow): 3.01 mm[Hg] Velocity Time Integral: 25.41 cm Tricuspid Valve Pulmonic Valve Peak Velocity: 0.90 m/s Peak Gradient: 3.66 mm[Hg], 2.83 mm[Hg] Right Atrium Dictated by: Evangelina Daigle M.D. on 05/24/2023 at 14:58 Approved by: Evangelina Daigle M.D. on 05/24/2023 at 15:01
== END 2023-05-23 12:54 | disposition home or self-care (01) ==
LOC: CARD 12:54
PROVIDERS: PCP Nurse Practitioner Primary Care; Visit Provider Nurse Practitioner
DX: R06.09 Other forms of dyspnea (principal); I25.118 Atherosclerotic heart disease of native coronary artery with other forms of angina pectoris
CPT/HCPCS: 93306

== ENCOUNTER 2023-05-23 14:35 | Observation (INO) | payer MEDICARE, SELFPAY ==
[2023-05-23] VITALS (35 sets, daily range): BP systolic 140–195; BP diastolic 62–93; PULSE 55–83; RESP 11–27; TEMP 36.4–36.6; O2SAT 93–98; BMI 33.1
--- OUTSIDE RECORDS SUMMARY | 2023-05-23 14:51 | XMS_ITS | CCD ---
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; Translations: [OTH [facility] CURRENT DRUG THERAPY] Onset: 05-30-2022 Episodic Other [...] Onset: 11-15-2021 Episodic Other aftercare (1 source) paver operator (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 When there are no FDA-approved or cleared tests available, and other criteria are met, FDA can make tests available under an emergency access mechanism called an Emergency Use Authorization (EUA). The EUA for this test is supported by the [employer] Driver of Health and Human Service's declaration that [...] used). Performed By: #### C VDTB #### [facility] [address] [place] [address] Dr. James Green INFLUENZA A AND B [facility] 04-01 [facility] SEE BELOW Normal [facility] Comment on above: Result Comment: Negative for Flu A prote in angiten. Infection due to Flu A cannot be ruled out. Flu A angiten in the sample may be below the detection limit of the test. Performed By: #### I NFLUAB #### [facility] [address] [place] [address] Dr. [facility] Normal [facility] Comment on above: Result Comment: Negative for Flu B prote in antigen. Infection due to Flu B cannot be ruled out. Flu B antigen in the sample may be below the detection limit of the test. Performed By: #### I NFLUAB #### [facility] [address] [place] [address] Dr. James Green INFLUENZA A AG Negative Normal NEGATIVE SEE COMMENT [facility] Comment on above: Performed By: #### INFLUAB #### [facility] [address] [place] [address] Dr. James Green INFLUENZA B AG Negative Normal NEGATIVE SEE COMMENT [facility] Comment on above: Performed By: #### INFLUAB #### [facility] [address] [place] [address] Dr. James Green XR CHEST 1 Von [...] by: FABI HEAD Date: 2022-04-27 07:47 Normal [facility] Encounters Encounter Date Encounter Type Care Provider Facility Start: 05-28-2022 End: 05-28-[address] DOCTOR HERNANDEZ Facility:[facility] Start: 04-27-2022 End: 04-27-[address] JOHAN ROSEN Facility:[facility] Start: 11-15-2021 End: 11-15-2021 ambulatory JESSICA ELSA Facility:[facility] Payers Date Payer Category Payer Unknown [id number] 1961 Medicare [id number] 1945 Unknown [id number] 1945 Unknown [id number] [id number] [id number] 1945 Unknown [id number] [id number] Summary Purpose Family History No Family History Records Found Advance Directives No Advanced Directives Records Found Additional Source Comments (unrecognized sect ion and content) No Status Records Found INFORMATION SOURCE (unrecogn ized section and content) DATE CREATED AUTHOR 05/30/2022 [facility] FOR RECORDS PERTAINING TO PATIENTS WHO [...] BE BASED ON THE PRIMARY CLINICAL RECORDS. [employer] provides no warranty or guarantee of the accuracy or completeness of information in this document.
--- NOTE | 2023-05-23 14:56 | ECG_ITS ---
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
--- NOTE | 2023-05-23 15:24 | CT_ITS ---
[address] [address] Patient Name: FLACO ACOSTA MRN: [id number] date: 1945 Sex: M Assigned Patient Location: ER Current Patient Location: Accession/Order Number: [id number] Exam Date: 05/23/2023 15:47 Report Date: 05/23/2023 16:47 At the request of: JAYNE BOONE Procedure: CT angio chest CTA CHEST. INDICATION: Chest pain. COMPARISON: None available. TECHNIQUE: CT pulmonary angiogram. Initially, limited axial non-contrast images through chest obtained to establish proper bolus timing. Subsequently, contrast enhanced axial CT images were obtained through the chest. Axial, sagittal and coronal reformatted maximum intensity projection images and / or 3D volume rendered images created. FINDINGS: PULMONARY ARTERIES: No intraluminal filling defects within the central or segmental pulmonary arteries to suggest pulmonary embolism.. Normal RV:LV ratio (<1). AORTA: The thoracic aorta diameter is normal without aneurysm or dissection. LUNGS: No airspace disease. No pleural effusions.. No pneumothorax. LYMPH NODES: No enlarged mediastinal lymph nodes by CT criteria. HEART: Cardiomegaly. Coronary artery calcification. UPPER ABDOMEN: Images of the upper abdomen demonstrate no abnormality. MUSCULOSKELETAL: No acute osseous abnormality. CT/CT angio chest IMPRESSION: 1. No pulmonary thromboembolic disease. No aortic aneurysm or dissection. 2. No acute airspace disease. Electronically authenticated by: RAFIQ HUTTON Date: 05/23/2023 16:47
[2023-05-23 15:27] LABS: Basophils Percent Auto 0.3 % (0.2-2.0); Eosinophils Absolute Auto 0.2 10^3/uL (0.0-0.7); Eosinophils Percent Auto 3.4 % (0.9-7.0); Hematocrit 35.3 % (42.0-54.0); Hemoglobin 11.7 g/dL (14.0-18.0); Immature Granulocytes Abs Auto 0.02 10^3/uL (0.00-0.03); Immature Granulocytes Pct Auto 0.3 % (0.0-0.5); Lymphocytes Absolute Auto 1.6 10^3/uL (1.2-3.8); Lymphocytes Percent Auto 26.8 % (20.5-60.0); Mean Corpuscular HGB Conc 33.1 g/dL (29.9-35.2); Mean Corpuscular Volume 90.5 fL (80.0-94.0); Mean Platelet Volume 11.3 fL (9.5-13.5); Monocytes Absolute Auto 0.4 10^3/uL (0.3-0.8); Monocytes Percent Auto 7.2 % (1.7-12.0); Neutrophils Absolute Auto 3.8 10^3/uL (1.4-6.5); Platelet Count 210 10^3/uL (150-450); Red Cell Distribution Width 14.6 % (11.0-15.0); White Blood Count 6.1 10^3/uL (4.0-11.0)
[2023-05-23 15:31] LABS: Alanine Aminotransferase 34 U/L (16-63); Albumin Globulin Ratio 0.8; Albumin Level 3.4 g/dL (3.4-5.0); Alkaline Phosphatase 45 U/L (46-116); Aspartate Amino Transferase 36 U/L (15-37); Bilirubin Total 0.3 mg/dL (0.2-1.0); Calcium 9.1 mg/dL (8.5-10.1); Carbon Dioxide 28.8 mmol/L (21.0-32.0); Chloride 103 mmol/L (98-107); Estimated GFR (African America >60 (>=60); Estimated GFR (Non-African Ame >60 (>=60); Globulin 4.3 g/dL; Glucose 106 mg/dL (74-106); Potassium 3.8 mmol/L (3.5-5.1); Sodium 140 mmol/L (136-145); Total Protein 7.7 g/dL (6.4-8.2)
[2023-05-23 15:33] LABS: INR 0.96; Prothrombin Time 10.2 sec (9.0-11.6)
[2023-05-23 15:35] LABS: Troponin I High Sensitivity 68.7 pg/mL (4.0-76.1)
--- NOTE | 2023-05-23 15:36 | ED.CHESTPAI1 ---
Documented by User: IKER Barnes 05/23/23 18:19 HPI - Chest Pain General Chief Complaint: Chest Pain Stated Complaint: CHEST PAIN Time Seen by Provider: 05/23/23 14:56 Source: patient Mode of arrival: Wheelchair Limitations: no limitations History of Present Illness HPI narrative: Patient is a 77-year-old male with a history of coronary artery disease and stents x 2 in 2004 who presents to the emergency department at the recommendation of his PCP office for intermittent chest pain for the last month. He was seen last week by [facility] cardiology and had an outpatient echocardiogram today, he followed up with his PCP office and was sent back to the ER. He has minimal anterior sternal chest pain at this time. He states he has intermittently been short of breath. 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 He has no fevers, chills, cough, congestion, extremity swelling. He quit smoking 25 years ago. He states he has been taking all of his regular medications, he did not take any aspirin today. Risk Factors Coronary artery disease risk factors: hyperlipidemia and hypertension Related Data Home Medications Medication Instructions Recorded Confirmed calcium carbonate 600 mg-vitamin 1 tab PO DAILY 04/30/23 05/24/23 D3 10 mcg (400 unit) tablet (Calcium 600 + D(3)) clopidogrel 75 mg tablet 75 mg PO DAILY 04/30/23 05/24/23 cyanocobalamin (vitamin B-12) 1,000 mcg PO DAILY 04/30/23 05/24/23 1,000 mcg capsule spironolactone 25 mg tablet 12.5 mg PO DAILY 04/30/23 05/24/23 (Aldactone) vit C 250 mg-vit E 90 mg-zinc 40 1 tab PO BID 04/30/23 05/24/23 mg-copper 1 gc-uoralh-phcxcc capsule (PreserVision AREDS-2) isosorbide mononitrate 30 mg 30 mg PO QDAY 05/24/23 05/24/23 tablet,extended release 24 hr metoprolol succinate 25 mg 12.5 mg PO QDAY 05/24/23 05/24/23 tablet,extended release 24 hr oxybutynin chloride 5 mg tablet 2.5 mg PO BID 05/24/23 05/24/23 Allergies Allergy/AdvReac Type Severity Reaction Status Date / Time Penicillins Allergy Hives Verified 05/23/23 14:52 Review of Systems ROS Constitutional Denies: fever or chills Ears, nose, mouth, and throat Denies: throat pain or nasal congestion Cardiovascular Reports: chest pain Respiratory Reports: shortness of breath; Denies: cough Gastrointestinal Denies: nausea or vomiting Genitourinary Denies: painful urination Musculoskeletal Denies: back pain Integumentary/Breast Denies: rash Neurological Denies: headache PFSH PFS Medical History (Updated 05/24/23 @ 17:27 by ZAC RUSSO) Stage 3a chronic kidney disease (CKD) ?N18.31 - Chronic kidney disease, stage 3a (ICD-10) Ischemic cardiomyopathy ?I25.5 - Ischemic cardiomyopathy (ICD-10) CAD (coronary artery disease) ?I25.10 - Atherosclerotic heart disease of [place] coronary artery without angina pectoris (ICD-10) Hypertension ?I10 - Essential (primary) hypertension (ICD-10) Symptomatic bradycardia ?R00.1 - Bradycardia, unspecified (ICD-10) Prostate cancer ?C61 - Malignant neoplasm of prostate (ICD-10) Left-sided weakness ?R53.1 - Weakness (ICD-10) Stroke ?I63.9 - Cerebral infarction, unspecified (ICD-10) Surgical History (Updated 05/01/23 @ 03:04 by Adrianne Rios) H/O hernia repair ?Z98.890 - Other specified postprocedural states (ICD-10) ?Z87.19 - Personal history of other diseases of the digestive system (ICD-10) History of appendectomy ?Z90.49 - Acquired absence of other specified parts of digestive tract (ICD-10) Hx of tonsillectomy ?Z90.89 - Acquired absence of other organs (ICD-10) H/O heart artery stent ?Z95.5 - Presence of coronary angioplasty implant and graft (ICD-10) Social History Smoking status: Former smoker Highest level of school completed/degree received: high school graduate Exam Narrative Exam Narrative: Gen.: Awake, alert, in no distress Head: Normocephalic, atraumatic ENT: Moist mucous membranes Respiratory: No respiratory distress, lungs clear bilaterally Cardio: Regular rate and rhythm Gastrointestinal: Abdomen is soft, nondistended and nontender to palpation Extremities: Moves extremities equally, no Pedal edema Psych: Normal mood and affect Neuro: No focal neuro deficit Skin: Warm, dry, intact Constitutional Vital Signs, click to edit/add: Last Vital Signs Temp 98.1 F 05/24/23 14:00 Pulse 58 L 05/24/23 14:00 Resp 18 05/24/23 14:00 BP 140/68 05/24/23 14:00 Pulse Ox 95 05/24/23 14:00 O2 Del Method Room Air 05/24/23 14:00 Course Vital Signs Vital signs: Vital Signs Temperature 97.9 F 05/23/23 14:52 Pulse Rate 62 05/23/23 14:52 Respiratory Rate 18 05/23/23 14:52 Blood Pressure 182/82 H 05/23/23 14:52 Pulse Oximetry 97 05/23/23 14:52 Oxygen Delivery Method Room Air 05/23/23 14:52 Temperature 98.1 F 05/24/23 14:00 Pulse Rate 58 L 05/24/23 14:00 Respiratory Rate 18 05/24/23 14:00 Blood Pressure 140/68 05/24/23 14:00 Pulse Oximetry 95 05/24/23 14:00 Oxygen Delivery Method Room Air 05/24/23 14:00 MDM - Chest Pain MDM Narrative Medical decision making narrative: Patient was treated with aspirin, he declined pain medication in the ER. Lab studies are within normal limits. Based on the duration of the patient's symptoms, he was sent for CTA of the chest to rule out other Cardiac pathology. This is unremarkable. I discussed the case with Dr. Domínguez for [facility] cardiology who recommended the patient to be treated as an outpatient based on the duration of his symptoms, a repeat troponin was obtained which did elevate slightly into the critical range. Patient has no change in chest pain in the ER. I discussed the case again with Dr. Domínguez who is in agreement the patient can stay at this facility as there are no beds at tertiary care and he does not meet criteria for an emergent cardiac catheterization. He recommended the troponins can be trended at this facility, we will start the patient on a heparin drip as a precaution. Cardiology can evaluate him in the morning. Patient was accepted by the hospitalist. Medical Records Data Attestation: I reviewed the patient's medical records. Lab Data Attestation: I reviewed the patient's lab results. Labs: Lab Results 05/23/23 05/23/23 Range/Units 15:04 17:15 WBC 6.1 (4.0-11.0) 10^3/uL RBC 3.90 L (4.70-6.10) 10^6/uL Hgb 11.7 L (14.0-18.0) g/dL Hct 35.3 L (42.0-54.0) % MCV 90.5 (80.0-94.0) fL MCH 30.0 (25.9-34.0) pg MCHC 33.1 (29.9-35.2) g/dL RDW 14.6 (11.0-15.0) % Plt Count 210 (150-450) 10^3/uL MPV 11.3 (9.5-13.5) fL Neut % (Auto) 62.0 (43.0-75.0) % Lymph % (Auto) 26.8 (20.5-60.0) % Mclean % (Auto) 7.2 (1.7-12.0) % Eos % (Auto) 3.4 (0.9-7.0) % Baso % (Auto) 0.3 (0.2-2.0) % Neut # (Auto) 3.8 (1.4-6.5) 10^3/uL Lymph # (Auto) 1.6 (1.2-3.8) 10^3/uL Mclean # (Auto) 0.4 (0.3-0.8) 10^3/uL Eos # (Auto) 0.2 (0.0-0.7) 10^3/uL Baso # (Auto) 0.0 (0.0-0.1) 10^3/uL Abs Immat Gran (auto) 0.02 (0.00-0.03) 10^3/uL Imm/Tot Granulo (auto) 0.3 (0.0-0.5) % PT 10.2 (9.0-11.6) sec INR 0.96 Sodium 140 (136-145) mmol/L Potassium 3.8 (3.5-5.1) mmol/L Chloride 103 (98-107) mmol/L Carbon Dioxide 28.8 (21.0-32.0) mmol/L Anion Gap 12.0 BUN 13.0 (7.0-18.0) mg/dL Creatinine 1.08 (0.70-1.30) mg/dL Est GFR ( Amer) >60 (>=60) Est GFR (Non-Af Amer) >60 (>=60) BUN/Creatinine Ratio 12.0 Glucose 106 (74-106) mg/dL Calcium 9.1 (8.5-10.1) mg/dL Total Bilirubin 0.3 (0.2-1.0) mg/dL AST 36 (15-37) U/L ALT 34 (16-63) U/L Alkaline Phosphatase 45 L (46-116) U/L Troponin I High Sens 68.7 76.6 H* (4.0-76.1) pg/mL NT-Pro-B Natriuret Pep 512.0 (<=1800.0) pg/mL Total Protein 7.7 (6.4-8.2) g/dL Albumin 3.4 (3.4-5.0) g/dL Globulin 4.3 g/dL Albumin/Globulin Ratio 0.[address] scan - chest: Attestation: I have reviewed the pertinent imaging results. Radiologist's impression: ITS Impressions Chest CTA 05/23/23 15:24 IMPRESSION: 1. No pulmonary thromboembolic disease. No aortic aneurysm or dissection. 2. No acute airspace disease. Electronically authenticated by: RAFIQ HUTTON Date: 05/23/2023 16:47 ECG Data Attestation: I personally reviewed and interpreted this ECG as follows: (Normal sinus rhythm at a rate of 62, no acute ST elevation, no ectopy. EKG reviewed by attending physician) ECG interpretation date: 05/23/23 Heart Score History: Moderately Suspicious ECG: NS Repolarization Age: >65 years Risk Factors: >3 Risk Factors/ HX of CAD:2 Troponin: <Normal Limit Total Heart Score Recommendations & Risks:: 6 Discharge Plan Discharge Chief Complaint: Chest Pain Clinical Impression: Elevated troponin, Chest pain Patient Disposition: Admitted as Observation Time of Disposition Decision: 18:18 Discharge Date/Time: 05/23/23 18:45 Documented by User: Damian Kimball 05/25/23 19:03 HPI - Chest Pain General Chief Complaint: Chest Pain Stated Complaint: CHEST PAIN Time Seen by Provider: 05/23/23 14:56 Related Data Home Medications Medication Instructions Recorded Confirmed calcium carbonate 600 mg-vitamin 1 tab PO DAILY 04/30/23 05/24/23 D3 10 mcg (400 unit) tablet (Calcium 600 + D(3)) clopidogrel 75 mg tablet 75 mg PO DAILY 04/30/23 05/24/23 cyanocobalamin (vitamin B-12) 1,000 mcg PO DAILY 04/30/23 05/24/23 1,000 mcg capsule spironolactone 25 mg tablet 12.5 mg PO DAILY 04/30/23 05/24/23 (Aldactone) vit C 250 mg-vit E 90 mg-zinc 40 1 tab PO BID 04/30/23 05/24/23 mg-copper 1 gn-rottky-lwlrtf capsule (PreserVision AREDS-2) isosorbide mononitrate 30 mg 30 mg PO QDAY 05/24/23 05/24/23 tablet,extended release 24 hr metoprolol succinate 25 mg 12.5 mg PO QDAY 05/24/23 05/24/23 tablet,extended release 24 hr oxybutynin chloride 5 mg tablet 2.5 mg PO BID 05/24/23 05/24/23 Allergies Allergy/AdvReac Type Severity Reaction Status Date / Time Penicillins Allergy Hives Verified 05/23/23 14:52 [facility] Medical History (Updated 05/24/23 @ 17:27 by ZAC RUSSO) Stage 3a chronic kidney disease (CKD) ?N18.31 - Chronic kidney disease, stage 3a (ICD-10) Ischemic cardiomyopathy ?I25.5 - Ischemic cardiomyopathy (ICD-10) CAD (coronary artery disease) ?I25.10 - Atherosclerotic heart disease of [place] coronary artery without angina pectoris (ICD-10) Hypertension ?I10 - Essential (primary) hypertension (ICD-10) Symptomatic bradycardia ?R00.1 - Bradycardia, unspecified (ICD-10) Prostate cancer ?C61 - Malignant neoplasm of prostate (ICD-10) Left-sided weakness ?R53.1 - Weakness (ICD-10) Stroke ?I63.9 - Cerebral infarction, unspecified (ICD-10) Surgical History (Updated 05/01/23 @ 03:04 by Adrianne Rios) H/O hernia repair ?Z98.890 - Other specified postprocedural states (ICD-10) ?Z87.19 - Personal history of other diseases of the digestive system (ICD-10) History of appendectomy ?Z90.49 - Acquired absence of other specified parts of digestive tract (ICD-10) Hx of tonsillectomy ?Z90.89 - Acquired absence of other organs (ICD-10) H/O heart artery stent ?Z95.5 - Presence of coronary angioplasty implant and graft (ICD-10) Social History Smoking status: Former smoker Highest level of school completed/degree received: high school graduate Exam Constitutional Vital Signs, click to edit/add: Last Vital Signs Temp 98.1 F 05/24/23 14:00 Pulse 58 L 05/24/23 14:00 Resp 18 05/24/23 14:00 BP 140/68 05/24/23 14:00 Pulse Ox 95 05/24/23 14:00 O2 Del Method Room Air 05/24/23 14:00 Course Vital Signs Vital signs: Vital Signs Temperature 97.9 F 05/23/23 14:52 Pulse Rate 62 05/23/23 14:52 Respiratory Rate 18 05/23/23 14:52 Blood Pressure 182/82 H 05/23/23 14:52 Pulse Oximetry 97 05/23/23 14:52 Oxygen Delivery Method Room Air 05/23/23 14:52 Temperature 98.1 F 05/24/23 14:00 Pulse Rate 58 L 05/24/23 14:00 Respiratory Rate 18 05/24/23 14:00 Blood Pressure 140/68 05/24/23 14:00 Pulse Oximetry 95 05/24/23 14:00 Oxygen Delivery Method Room Air 05/24/23 14:00 MDM - Chest Pain Lab Data Labs: Lab Results 05/23/23 05/23/23 Range/Units 15:04 17:15 WBC 6.1 (4.0-11.0) 10^3/uL RBC 3.90 L (4.70-6.10) 10^6/uL Hgb 11.7 L (14.0-18.0) g/dL Hct 35.3 L (42.0-54.0) % MCV 90.5 (80.0-94.0) fL MCH 30.0 (25.9-34.0) pg MCHC 33.1 (29.9-35.2) g/dL RDW 14.6 (11.0-15.0) % Plt Count 210 (150-450) 10^3/uL MPV 11.3 (9.5-13.5) fL Neut % (Auto) 62.0 (43.0-75.0) % Lymph % (Auto) 26.8 (20.5-60.0) % Mclean % (Auto) 7.2 (1.7-12.0) % Eos % (Auto) 3.4 (0.9-7.0) % Baso % (Auto) 0.3 (0.2-2.0) % Neut # (Auto) 3.8 (1.4-6.5) 10^3/uL Lymph # (Auto) 1.6 (1.2-3.8) 10^3/uL Mclean # (Auto) 0.4 (0.3-0.8) 10^3/uL Eos # (Auto) 0.2 (0.0-0.7) 10^3/uL Baso # (Auto) 0.0 (0.0-0.1) 10^3/uL Abs Immat Gran (auto) 0.02 (0.00-0.03) 10^3/uL Imm/Tot Granulo (auto) 0.3 (0.0-0.5) % PT 10.2 (9.0-11.6) sec INR 0.96 Sodium 140 (136-145) mmol/L Potassium 3.8 (3.5-5.1) mmol/L Chloride 103 (98-107) mmol/L Carbon Dioxide 28.8 (21.0-32.0) mmol/L Anion Gap 12.0 BUN 13.0 (7.0-18.0) mg/dL Creatinine 1.08 (0.70-1.30) mg/dL Est GFR ( Amer) >60 (>=60) Est GFR (Non-Af Amer) >60 (>=60) BUN/Creatinine Ratio 12.0 Glucose 106 (74-106) mg/dL Calcium 9.1 (8.5-10.1) mg/dL Total Bilirubin 0.3 (0.2-1.0) mg/dL AST 36 (15-37) U/L ALT 34 (16-63) U/L Alkaline Phosphatase 45 L (46-116) U/L Troponin I High Sens 68.7 76.6 H* (4.0-76.1) pg/mL NT-Pro-B Natriuret Pep 512.0 (<=1800.0) pg/mL Total Protein 7.7 (6.4-8.2) g/dL Albumin 3.4 (3.4-5.0) g/dL Globulin 4.3 g/dL Albumin/Globulin Ratio 0.[address] scan - chest: Radiologist's impression: ITS Impressions Chest CTA 05/23/23 15:24 IMPRESSION: 1. No pulmonary thromboembolic disease. No aortic aneurysm or dissection. 2. No acute airspace disease. Electronically authenticated by: RAFIQ HUTTON Date: 05/23/2023 16:47 Heart Score Total Heart Score Recommendations & Risks:: 6 Discharge Plan Discharge Chief Complaint: Chest Pain Clinical Impression: Elevated troponin, Chest pain Patient Disposition: Admitted as Observation Time of Disposition Decision: 18:18 Discharge Date/Time: 05/23/23 18:45
[2023-05-23] MEDS: ASPIRIN 81 MG TAB.CHEW 162 MG PO (15:45)
[2023-05-23] MEDS: ENALAPRILAT DIHYDRATE 1.25 MG/ML VIAL IV (16:06)
[2023-05-23 18:01] LABS: Troponin I High Sensitivity 76.6 pg/mL (4.0-76.1)
[2023-05-23] MEDS: HEPARIN SODIUM,PORCINE/D5W 25,000 UNIT/500 ML IV.SOLN 26.562 UNIT IV (18:39)
[2023-05-23] MEDS: NITROGLYCERIN 2% 1 GRAM PACKET 1 GM TD (19:07)
--- OUTSIDE RECORDS SUMMARY | 2023-05-23 19:08 | XMS_ITS | CCD ---
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; Translations: [OTH SKILLED NURSING CURRENT DRUG THERAPY] Onset: 05-30-2022 Episodic Other [...] Onset: 11-15-2021 Episodic Other aftercare (1 source) 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 When there are no FDA-approved or cleared tests available, and other criteria are met, FDA can make tests available under an emergency access mechanism called an Emergency Use Authorization (EUA). The EUA for this test is supported by the Machine Try Out Setter of Health and Human Service's declaration that [...] used). Performed By: #### C VDTB #### [facility] [address] [place] [address] Dr. James Green INFLUENZA A AND B [facility] 04-01 [facility] SEE BELOW Normal [facility] Comment on above: Result Comment: Negative for Flu A prote in angiten. Infection due to Flu A cannot be ruled out. Flu A angiten in the sample may be below the detection limit of the test. Performed By: #### I NFLUAB #### [facility] [address] [place] [address] Dr. [facility] Normal [facility] Comment on above: Result Comment: Negative for Flu B prote in antigen. Infection due to Flu B cannot be ruled out. Flu B antigen in the sample may be below the detection limit of the test. Performed By: #### I NFLUAB #### [facility] [address] [place] [address] Dr. James Green INFLUENZA A AG Negative Normal NEGATIVE SEE COMMENT [facility] Comment on above: Performed By: #### INFLUAB #### [facility] [address] [place] [address] Dr. James Green INFLUENZA B AG Negative Normal NEGATIVE SEE COMMENT [facility] Comment on above: Performed By: #### INFLUAB #### [facility] [address] [place] [address] Dr. James Green XR CHEST 1 Von [...] by: FABI HEAD Date: 2022-04-27 07:47 Normal [facility] Encounters Encounter Date Encounter Type Care Provider Facility Start: 05-28-2022 End: 05-28-[address] DOCTOR HERNANDEZ Facility:[facility] Start: 04-27-2022 End: 04-27-[address] JOHAN ROSEN Facility:[facility] Start: 11-15-2021 End: 11-15-2021 ambulatory JESSICA ELSA Facility:[facility] Payers Date Payer Category Payer Unknown [id number] 1961 Medicare [id number] 1945 Unknown [id number] [id number] 1945 Unknown [id number] [id number] [id number] 1945 Unknown [id number] Summary Purpose Family History No Family History Records Found Advance Directives No Advanced Directives Records Found Additional Source Comments (unrecognized sect ion and content) No Status Records Found INFORMATION SOURCE (unrecogn ized section and content) DATE CREATED AUTHOR 05/30/2022 [facility] FOR RECORDS PERTAINING TO PATIENTS [...] BE BASED ON THE PRIMARY CLINICAL RECORDS. [employer] provides no warranty or guarantee of the accuracy or completeness of information in this document.
[2023-05-23 20:37] LABS: Troponin I High Sensitivity 75.9 pg/mL (4.0-76.1)
[2023-05-24] VITALS (16 sets, daily range): BP systolic 140–195; BP diastolic 68–79; PULSE 55–68; RESP 15–20; TEMP 36.5–36.8; O2SAT 94–98
[2023-05-24 02:25] LABS: Hematocrit 32.3 % (42.0-54.0); Hemoglobin 10.7 g/dL (14.0-18.0); Mean Corpuscular HGB Conc 33.1 g/dL (29.9-35.2); Mean Corpuscular Hemoglobin 30.1 pg (25.9-34.0); Mean Platelet Volume 11.3 fL (9.5-13.5); Platelet Count 179 10^3/uL (150-450); Red Blood Count 3.55 10^6/uL (4.70-6.10); Red Cell Distribution Width 14.7 % (11.0-15.0); White Blood Count 6.9 10^3/uL (4.0-11.0)
[2023-05-24 02:49] LABS: Alanine Aminotransferase 34 U/L (16-63); Albumin Globulin Ratio 0.7; Alkaline Phosphatase 42 U/L (46-116); Aspartate Amino Transferase 35 U/L (15-37); BUN Creatinine Ratio 11.8; Bilirubin Total 0.2 mg/dL (0.2-1.0); Chloride 106 mmol/L (98-107); Estimated GFR (African America >60 (>=60); Estimated GFR (Non-African Ame 59 (>=60); Globulin 4.1 g/dL; Glucose 138 mg/dL (74-106); Sodium 141 mmol/L (136-145); Thyroid Stimulating Hormone 2.008 uIU/mL (0.358-3.740); Total Protein 7.1 g/dL (6.4-8.2); Troponin I High Sensitivity 55.6 pg/mL (4.0-76.1)
[2023-05-24 07:49] LABS: PTT Heparin Monitor 37.9 sec (48.2-68.6)
[2023-05-24] MEDS: ACETAMINOPHEN 325 MG TABLET 650 MG PO (09:21)
[2023-05-24] MEDS: NITROGLYCERIN 2% 1 GRAM PACKET 1 GM TD (09:22)
--- NOTE | 2023-05-24 10:39 | P.HP_ITS ---
<Statement entered by Meir Sheppard MD - 05/24/23 19:43> Patient seen and examined, agree with assessment and plan below. History of CAD and c/o chest pain for almost a month. Seen by cardiology and added imdur but continued to have pain. Pain with ambulation and sent to ER. Troponin mildly elevated and started heparin drip. Seen by cardiology and felt needed heart ca th due to angina. Arrangements made for transfer and bed available. Transferred to [facility] in stable condition. Diagnosis: 1. Chest pain 2. Angina 3. Elevated troponin 4. CAD 5. Ischemic cardiomyopathy 6. HTN 7. CKD 3a H&P: HPI History of Present Illness Chief complaint: CHEST PAIN, Elevated Troponin Narrative: 05/24/23 0955 This is a 77-year-old male patient with a past medical history as outlined below including CAD s/p cardiac stent placement x 2 (2004), history of CVA with left- sided residual, and prostate cancer; who presented to the ED on the advice of his PCP due to complaints of persistent, intermittent chest pain since 04/30/2023. He was seen by his office service coordinator as an outpatient last week and had an outpatient 2D echo yesterday per cardiology request. He contacted his PCP when his chest pain was recurrent and they sent him to the ED for further evaluation. Workup in the ED was mostly unremarkable. EKG revealed normal sinus rhythm without acute ischemic changes but did have nonspecific ST and T wave changes. A CTA of the chest was negative for PE, aneurysm or dissection and noted no acute airspace disease. High-sensitivity troponin I was mildly elevated on first repeat but then trended down. He was admitted to the hospitalist service last night in observation for further cardiac workup and monitoring. At the time of my exam today the patient is resting comfortably in the stepdown unit. He denies chest pain at this time. He reports that his discomfort has been intermittent and mostly associated with activity. He was awoken from sleep the night before last with chest discomfort that improved with nitroglycerin that was just prescribed by his cardiology provider. He describes the pain as substernal pressure radiating to his back. He has some stabbing pain that radiates to his left shoulder. He is mildly short of breath with these episodes and also notes minimal sweating on his forehead. He is discomfort improves with nitroglycerin and rest. He notes that his chest pain is very similar to his previous VT in 2004 before his stent placements. He was seen in consult this morning by Dr Mason with the cardiology service. They are recommending transfer for a cardiac cath as this is suspicious for unstable angina. Dr. Mason will arrange transfer to [facility] for an emergent cardiac cath as soon as can be arranged. Disposition: transfer to [facility] once arranged by cardiology. Review of Systems ROS Status of ROS 10 or more systems reviewed and unremark able except as noted in history and below [facility] Medical History (Updated 05/24/23 @ 11:14 by Mireille Pino NP) Stage 3a chronic kidney disease (CKD) ?N18.31 - Chronic kidney disease, stage 3a (ICD-10) Ischemic cardiomyopathy ?I25.5 - Ischemic cardiomyopathy (ICD-10) CAD (coronary artery disease) ?I25.10 - Atherosclerotic heart disease of [place] coronary artery without angina pectoris (ICD-10) Hypertension ?I10 - Essential (primary) hypertension (ICD-10) Symptomatic bradycardia ?R00.1 - Bradycardia, unspecified (ICD-10) Prostate cancer ?C61 - Malignant neoplasm of prostate (ICD-10) Left-sided weakness ?R53.1 - Weakness (ICD-10) Stroke ?I63.9 - Cerebral infarction, unspecified (ICD-10) Surgical History (Updated 05/01/23 @ 03:04 by Adrianne Rios) H/O hernia repair ?Z98.890 - Other specified postprocedural states (ICD-10) ?Z87.19 - Personal history of other diseases of the digestive system (ICD-10) History of appendectomy ?Z90.49 - Acquired absence of other specified parts of digestive tract (ICD- 10) Hx of tonsillectomy ?Z90.89 - Acquired absence of other organs (ICD-10) H/O heart artery stent ?Z95.5 - Presence of coronary angioplasty implant and graft (ICD-10) Social History Smoking status: Former smoker Highest level of school completed/degree received: high school graduate Meds Home Medications and Allergies Home Medications Medication Instructions Recorded Confirmed Type calcium carbonate 600 mg-vitamin 1 tab PO DAILY 04/30/23 05/24/23 History D3 10 mcg (400 unit) tablet (Calcium 600 + D(3)) clopidogrel 75 mg tablet 75 mg PO DAILY 04/30/23 05/24/23 History cyanocobalamin (vitamin B-12) 1,000 mcg PO DAILY 04/30/23 05/24/23 History 1,000 mcg capsule spironolactone 25 mg tablet 12.5 mg PO DAILY 04/30/23 05/24/23 History (Aldactone) vit C 250 mg-vit E 90 mg-zinc 40 1 tab PO BID 04/30/23 05/24/23 History mg-copper 1 [id number] capsule (PreserVision AREDS-2) isosorbide mononitrate 30 mg 30 mg PO QDAY 05/24/23 05/24/23 History tablet,extended release 24 hr metoprolol succinate 25 mg 12.5 mg PO QDAY 05/24/23 05/24/23 History tablet,extended release 24 hr oxybutynin chloride 5 mg tablet 2.5 mg PO BID 05/24/23 05/24/23 History Allergies Allergy/AdvReac Type Severity Reaction Status Date / Time Penicillins Allergy Hives Verified 05/23/23 14:52 Exam Constitutional Vital Signs, click to edit/add: Last Vital Signs Temp 97.7 F 05/24/23 05:00 Pulse 59 L 05/24/23 10:13 Resp 18 05/24/23 05:00 BP 158/71 H 05/24/23 05:00 Pulse Ox 95 05/24/23 10:13 O2 Del Method Room Air 05/24/23 05:00 Common normals: no apparent distress, oriented x3, alert and well nourished General appearance: cooperative Orientation/consciousness: Yes awake [facility] Common normals: normocephalic, head/scalp atraumatic, hearing grossly normal bilaterally, external nose normal and moist oral mucous membranes Eye Common normals: PERRL, EOMs intact bilaterally, conjunctivae normal and no scleral icterus Alignment: alignment normal Eyelid: eyelids normal Neck & C-Spine Common normals: full ROM, supple and no JVD Chest Common normals: inspection of chest normal Chest: symmetrical chest wall rise Respiratory Common normals: normal respiratory effort, no retractions, no use of accessory muscles and clear to auscultation bilaterally Effort & inspection: able to speak in complete sentences Cardio Common normals: no JVD, regular rate, regular rhythm, S1 normal heart sound, S2 normal heart sound, no gallops, no clicks, no murmurs, no rub and peripheral pulses 2+ throughout GI Common normals: Normal to inspection, nondistended, normoactive bowel sounds present, soft to palpation, non-tender, no hepatosplenomegaly, no masses and no bruits Bladder/kidney exam: bladder normal to palpation Back & Pelvis Common normals: thoracic and lumbar spine normal to inspection Extremity Common normals: normal capillary refill and no pedal edema General: normal exam except as noted; no clubbing and no cyanosis Neuro [place] Coma Scale: GCS not evaluated Common normals: CN's II-XII intact bilaterally, moves all extremities, no focal motor deficits and no sensory deficits noted Speech: speech normal Psych Common normals: mental status grossly normal, thought process normal, affect n ormal and activity/motor behavior normal Results Labs Labs: Short CBC 05/23/23 05/24/23 Range/Units 15:04 02:19 WBC 6.1 6.9 (4.0-11.0) 10^3/uL Hgb 11.7 L 10.7 L (14.0-18.0) g/dL Hct 35.3 L 32.3 L (42.0-54.0) % Plt Count 210 179 (150-450) 10^3/uL BMP 05/23/23 05/24/23 15:04 02:19 Sodium 140 141 Potassium 3.8 4.0 Chloride 103 106 Carbon Dioxide 28.8 27.0 BUN 13.0 14.0 Creatinine 1.08 1.19 Glucose 106 138 H Calcium 9.1 9.0 Liver Function 05/23/23 05/24/23 Range/Units 15:04 02:19 Total Bilirubin 0.3 0.2 (0.2-1.0) mg/dL AST 36 35 (15-37) U/L ALT 34 34 (16-63) U/L Alkaline Phosphatase 45 L 42 L (46-116) U/L Albumin 3.4 3.0 L (3.4-5.0) g/dL Pulse Oximetry Attestation: I have reviewed the pertinent pulse oximetry results. ECG Attestation: ?I have reviewed the pertinent ECG results. Interpretation: Sinus rhythm Nonspecific ST/T wave changes Abnormal ECG Imaging Chest x-ray: Attestation: I have reviewed the pertinent imaging results. Radiologist's impression: IMPRESSION: 1. No pulmonary thromboembolic disease. No aortic aneurysm or dissection. 2. No acute airspace disease. Assessment and Plan Assessment and Plan (1) Chest pain: Assessment and Plan: ACUTE * Adm observation * Sx concerning for unstable angina * Currently CP free * C/S Cardiology * We appreciate Dr Mason's assistance with this pt's care * Emergent tx for cardiac cath is advised - Dr Mason will make arrangements * Continue home plavix and heparin gtt as initiated in the ED * Continue home Imdur and NTG TD prescribed on admission * NPO pending possible cardiac cath later today (2) Stroke: Assessment and Plan: CHRONIC * Stable w/ baseline L side residual * No acute symptoms (3) Hypertension: Assessment and Plan: CHRONIC * Continue home metoprolol and spironolactone * Pt still hypertensive despite NTG TD patch
[2023-05-24] MEDS: METOPROLOL SUCCINATE 25 MG TAB.ER.24H 12.5 MG PO (11:15)
[2023-05-24] MEDS: ISOSORBIDE MONONITRATE 30 MG TAB.ER.24H PO (11:15)
[2023-05-24] MEDS: CLOPIDOGREL BISULFATE 75 MG TABLET PO (11:19)
[2023-05-24] MEDS: SPIRONOLACTONE 25 MG TABLET 12.5 MG PO (11:19)
--- NOTE | 2023-05-24 11:32 | CM.NOTE ---
Rounds made with Dr. Marlon Jones at bedside for cardiology consult. Plan is to transfer pt to [facility] for heart cath. Dr. Mason will call for accepting physician.
[2023-05-24] MEDS: ASPIRIN 81 MG TAB.CHEW PO (12:25)
[2023-05-24 12:56] LABS: PTT Heparin Monitor 43.3 sec (48.2-68.6)
[2023-05-24] MEDS: HEPARIN SODIUM,PORCINE/D5W 25,000 UNIT/500 ML IV.SOLN 32 UNIT IV (13:04)
--- NOTE | 2023-05-24 15:09 | PC.NURSE ---
Report was called to SERGIO Berry at [facility]
--- NOTE | 2023-05-24 15:32 | CM.NOTE ---
Medicare Observation Notice discussed with pt, pt verbalizes understanding and signs paper. Original given to pt and copy placed on pt's chart.
--- NOTE | 2023-05-24 17:24 | PM.CACN ---
History of Present Illness History of Present Illness Consult date: 05/24/23 Requesting physician: Meir Sheppard Consult reason: chest pain Chief complaint: CHEST PAIN, Elevated Troponin Narrative: This is a 77-year-old man with prior history of coronary disease status post 2 stents in 2004, history of cerebrovascular accident in 2009, hyperlipidemia, hypertension, who is intolerant to statin therapy who presented to the [facility] with recurrent episodes of chest pain at rest. The pain is located to the left side of the chest with no acute radiation except to the back. The episodes happen on and off at rest or with minimal exertion such as walking short distances. He is admitted to the intensive care unit at the [facility]. His troponin levels were mildly elevated using the high-sensitivity troponin. His ECG did not show acute ischemic changes. Currently he is not having any active chest pain. Review of Systems ROS Status of ROS 10 or more systems reviewed and unremarkable except as noted in history and below Cardiovascular Reports: chest pain and shortness of breath with exertion [facility] Medical History (Updated 05/24/23 @ 17:27 by ZAC RUSSO) Stage 3a chronic kidney disease (CKD) ?N18.31 - Chronic kidney disease, stage 3a (ICD-10) Ischemic cardiomyopathy ?I25.5 - Ischemic cardiomyopathy (ICD-10) CAD (coronary artery disease) ?I25.10 - Atherosclerotic heart disease of [place] coronary artery without angina pectoris (ICD-10) Hypertension ?I10 - Essential (primary) hypertension (ICD-10) Symptomatic bradycardia ?R00.1 - Bradycardia, unspecified (ICD-10) Prostate cancer ?C61 - Malignant neoplasm of prostate (ICD-10) Left-sided weakness ?R53.1 - Weakness (ICD-10) Stroke ?I63.9 - Cerebral infarction, unspecified (ICD-10) Surgical History (Updated 05/01/23 @ 03:04 by Adrianne Rios) H/O hernia repair ?Z98.890 - Other specified postprocedural states (ICD-10) ?Z87.19 - Personal history of other diseases of the digestive system (ICD-10) History of appendectomy ?Z90.49 - Acquired absence of other specified parts of digestive tract (ICD-10) Hx of tonsillectomy ?Z90.89 - Acquired absence of other organs (ICD-10) H/O heart artery stent ?Z95.5 - Presence of coronary angioplasty implant and graft (ICD-10) Social History Smoking status: Former smoker Highest level of school completed/degree received: high school graduate Meds Home Medications and Allergies Home Medications Medication Instructions Recorded Confirmed Type calcium carbonate 600 mg-vitamin 1 tab PO DAILY 04/30/23 05/24/23 History D3 10 mcg (400 unit) tablet (Calcium 600 + D(3)) clopidogrel 75 mg tablet 75 mg PO DAILY 04/30/23 05/24/23 History cyanocobalamin (vitamin B-12) 1,000 mcg PO DAILY 04/30/23 05/24/23 History 1,000 mcg capsule spironolactone 25 mg tablet 12.5 mg PO DAILY 04/30/23 05/24/23 History (Aldactone) vit C 250 mg-vit E 90 mg-zinc 40 1 tab PO BID 04/30/23 05/24/23 History mg-copper 1 [id number] capsule (PreserVision AREDS-2) isosorbide mononitrate 30 mg 30 mg PO QDAY 05/24/23 05/24/23 History tablet,extended release 24 hr metoprolol succinate 25 mg 12.5 mg PO QDAY 05/24/23 05/24/23 History tablet,extended release 24 hr oxybutynin chloride 5 mg tablet 2.5 mg PO BID 05/24/23 05/24/23 History Allergies Allergy/AdvReac Type Severity Reaction Status Date / Time Penicillins Allergy Hives Verified 05/23/23 14:52 Exam Constitutional Vital Signs, click to edit/add: Last Vital Signs Temp 98.1 F 05/24/23 14:00 Pulse 58 L 05/24/23 14:00 Resp 18 05/24/23 14:00 BP 140/68 05/24/23 14:00 Pulse Ox 95 05/24/23 14:00 O2 Del Method Room Air 05/24/23 14:00 Documenting provider has reviewed patient's vital signs: yes Common normals: no apparent distress, oriented x3, alert and well nourished General appearance: cooperative and comfortable Orientation/consciousness: Yes awake [facility] Common normals: normocephalic, head/scalp atraumatic, hearing grossly normal bilaterally, external nose normal and moist oral mucous membranes Eye Common normals: PERRL, EOMs intact bilaterally, conjunctivae normal and no scleral icterus Alignment: alignment normal Eyelid: eyelids normal Neck & C-Spine Common normals: full ROM, supple and no JVD Chest Common normals: inspection of chest normal Chest: symmetrical chest wall rise Respiratory Common normals: normal respiratory effort, no retractions, no use of accessory muscles and clear to auscultation bilaterally Effort & inspection: able to speak in complete sentences Cardio Common normals: no JVD, regular rate, regular rhythm, S1 normal heart sound, S2 normal heart sound, no gallops, no clicks, no murmurs, no rub and peripheral pulses 2+ throughout GI Common normals: Normal to inspection, nondistended, normoactive bowel sounds present, soft to palpation, non-tender, no hepatosplenomegaly, no masses and no bruits Bladder/kidney exam: bladder normal to palpation Back & Pelvis Common normals: thoracic and lumbar spine normal to inspection Extremity Common normals: normal capillary refill and no pedal edema General: normal exam except as noted; no clubbing and no cyanosis Neuro [place] Coma Scale: GCS not evaluated Common normals: CN's II-XII intact bilaterally, moves all extremities, no focal motor deficits and no sensory deficits noted Speech: speech normal Psych Common normals: mental status grossly normal, thought process normal, affect normal and activity/motor behavior normal Results Labs and Meds Lab results: Cardiac Enzymes 05/24/23 Range/Units 02:19 AST 35 (15-37) U/L CBC 05/24/23 Range/Units 02:19 WBC 6.9 (4.0-11.0) 10^3/uL RBC 3.55 L (4.70-6.10) 10^6/uL Hgb 10.7 L (14.0-18.0) g/dL Hct 32.3 L (42.0-54.0) % Plt Count 179 (150-450) 10^3/uL Comprehensive Metabolic Panel 05/24/23 Range/Units 02:19 Sodium 141 (136-145) mmol/L Potassium 4.0 (3.5-5.1) mmol/L Chloride 106 (98-107) mmol/L Carbon Dioxide 27.0 (21.0-32.0) mmol/L BUN 14.0 (7.0-18.0) mg/dL Creatinine 1.19 (0.70-1.30) mg/dL Glucose 138 H (74-106) mg/dL Calcium 9.0 (8.5-10.1) mg/dL AST 35 (15-37) U/L ALT 34 (16-63) U/L Alkaline Phosphatase 42 L (46-116) U/L Total Protein 7.1 (6.4-8.2) g/dL Albumin 3.0 L (3.4-5.0) g/dL Intake and Output 05/24/23 05/24/23 05/24/23 07:59 15:59 23:59 Intake Total 659.930 / 1139.930 140.07 / 140.07 Output Total 300 / 300 Balance 359.930 / 839.930 140.07 / 140.07 Intake: Oral 300 / 780 IV 359.930 / 359.930 140.07 / 140.07 Heparin Sodium,Porcine/D5w 25, 359.930 / 359.930 140.07 / 140.07 000 unit In 500 ml @ 12 UNITS/ KG/HR 26.562 mls/hr IV ONCE ONE Rx#:[id number] Output: Urine 300 / 300 Assessment and Plan Assessment and Plan (1) Chest pain: (2) Stroke: (3) Hypertension: (4) NSTEMI (non-ST elevated myocardial infarction): Plan This is a high risk patient given his prior history for coronary artery disease, recurrent episodes of chest pain at rest and minimal exertion as well as mildly elevated high-sensitivity troponin. I discussed the current situation with the patient as well as with the treating physician Dr. Meir Sheppard. This patient needs to proceed with coronary angiography. I recommended transfer to the [facility] for that purpose. I called bed control at the [facility] to secure a bed for the patient and informed the cardiology team at the hospital. The patient and Dr. Sheppard are in agreement.
== END 2023-05-24 14:52 | disposition short-term general hospital (02) ==
LOC: ER 18:18 → ICU 19:06
PROVIDERS: Physician Assistant; Registered Nurse; Admitting Provider Family Medicine; Emergency Provider Emergency Medicine; PCP Nurse Practitioner Primary Care; Visit Provider Nurse Practitioner
DX: I25.119 Atherosclerotic heart disease of native coronary artery with unspecified angina pectoris (principal); I21.4 Non-ST elevation (NSTEMI) myocardial infarction; I25.5 Ischemic cardiomyopathy; I12.9 Hypertensive chronic kidney disease with stage 1 through stage 4 chronic kidney disease, or unspecified chronic kidney disease; N18.31 Chronic kidney disease, stage 3a; E78.5 Hyperlipidemia, unspecified; R06.09 Other forms of dyspnea; I69.354 Hemiplegia and hemiparesis following cerebral infarction affecting left non-dominant side; Z85.46 Personal history of malignant neoplasm of prostate; Z95.5 Presence of coronary angioplasty implant and graft; Z87.891 Personal history of nicotine dependence; Z79.899 Other long term (current) drug therapy; Z98.890 Other specified postprocedural states; Z90.49 Acquired absence of other specified parts of digestive tract; Z90.89 Acquired absence of other organs
CPT/HCPCS: 36415; 71275; 80053; 83880; 84443; 84484; 85025; 85027; 85610; 85730; 93005; 93306; 96374; 96375; 96376; 99285; G0378; J1644; Q9967

== ENCOUNTER 2023-10-25 07:08 | Outpatient (OUT) | payer MEDICARE, SELFPAY ==
--- OUTSIDE RECORDS SUMMARY | 2023-10-25 07:12 | XMS_ITS | CCD ---
Author Organization [facility] CliniSymd Care Team Providers Care Director Cardiac Name Role Phone JESSICA HUNTER Admitting Unavailable JESSICA HUNTER Attending Unavailable JESSICA HUNTER Consulting Unavailable SMITHC, DR SMITH Primary Care Unavailable PAY, DR [...] (1 source) Oxytetracycline Drug Allergy 2 [facility] Repository (1 source) Penicillins Drug allergy (disorder) 3 [facility] Repository Problems Active Problems Problem [...] 05-28-2022 Episodic Other aftercare (1 source) Other custodial (current) drug therapy; Translations: [OTH LONG-TERM CURRENT DRUG THERAPY] Onset: 05-30-2022 Episodic Other [...] Onset: 11-15-2021 Episodic Other aftercare (1 source) superintendent terminal (current) use of antithrombotics/an tiplatelets; Translations: [QUANTITATIVE SOFTWARE ENGINEER ANTITHROMBOT/ANTIP LATLETS] Onset: 11-17-2021 Episodic Unclassified (1 [...] FABI COBB Date: 2022-05-28 20:53 Normal [facility] CT HEAD WO CONon 05-28-2022 [...] VAIBHAV ROJAS Date: 2022-05-28 21:17 Normal [facility] Covid-19 PCR (CVDTB)on 04-01 SARS-CoV-2 (COVID-19) RNA VINH+probe Ql (Unsp spec) Detected Critically abnormal NOT DETECTED [facility] Comment on above: Result Comment: This test is not yet az roved or cleared by the [place] FDA. When there are no FDA-approved or cleared tests available, and other criteria are met, FDA can make tests available under an emergency access mechanism called an Emergency Use Authorization (EUA). The EUA for this test is supported by the Chair Mechanic of Health and Human Service's declaration that [...] longer be used). Performed By: #### C VDTBH #### [facility] [address] [place] [address] Dr. James Green INFLUENZA A AND B [facility] 04-27 [facility] SEE BELOW Normal [facility] Comment on above: Result Comment: Negative for Flu A prote in angiten. Infection due to Flu A cannot be ruled out. Flu A angiten in the sample may be below the detection limit of the test. Performed By: #### I NFLUAB #### [facility] [address] [place] [address] Dr. James [facility] Normal [facility] Comment on above: Result Comment: Negative for Flu B prote in antigen. Infection due to Flu B cannot be ruled out. Flu B antigen in the sample may be below the detection limit of the test. Performed By: #### I NFLUAB #### [facility] [address] [place] [address] Dr. James Green INFLUENZA A AG Negative Normal NEGATIVE SEE COMMENT [facility] Comment on above: Performed By: #### INFLUAB #### [facility] [address] [place] [address] Dr. James Green INFLUENZA B AG Negative Normal NEGATIVE SEE COMMENT [facility] Comment on above: Performed By: #### INFLUAB #### [facility] [address] [place] [address] Dr. James Green XR CHEST 1 Von [...] by: FABI HEAD Date: 2022-04-27 07:47 Normal [facility] Encounters Encounter Date Encounter Type Care Provider Facility Start: 05-28-2022 End: 05-28-[address] DOCTOR HERNANDEZ Facility:H1 Start: 04-27-2022 End: 04-27-[address] JOHAN ROSEN Facility:H1 Start: 11-15-2021 End: 11-15-2021 ambulatory JESSICA HUNTER Facility:H1 Payers Date Payer Category Payer Unknown [id number] 1961 Medicare [id number] 1945 Unknown [id number] 2.16.84 [id number] 1945 Unknown [id number] 2.16.84 [id number] 1945 Unknown [id number] 2.16.84 [id number] Summary Purpose Family History No Family History Records Found Advance Directives No Advanced Directives Records Found Additional Source Comments (unrecognized sect ion and content) No Status Records Found INFORMATION SOURCE (unrecogn ized section and content) DATE CREATED AUTHOR 05/30/2022 The [facility] FOR RECORDS PERTAINING TO PATIENTS WHO ARE [...] BE BASED ON THE PRIMARY CLINICAL RECORDS. [employer] provides no warranty or guarantee of the accuracy or completeness of information in this document.
[2023-10-25 08:37] LABS: Chol HDL Ratio 1.8; Cholesterol 88 mg/dL (<=200); HDL Cholesterol 49 mg/dL (40-60); LDL Cholesterol Calculated 24.2 mg/dL; Triglycerides 74 mg/dL (<=150); VLDL CHOLESTEROL 14.8 mg/dL
== END 2023-10-25 07:09 | disposition home or self-care (01) ==
LOC: LAB 07:10
PROVIDERS: Visit Provider Internal Medicine Interventional Cardiology
DX: E78.2 Mixed hyperlipidemia (principal)
CPT/HCPCS: 36415; 80061

== ENCOUNTER 2023-11-14 10:55 | Outpatient (OUT) | payer MEDICARE, SELFPAY ==
--- OUTSIDE RECORDS SUMMARY | 2023-11-14 11:06 | XMS_ITS | CCD ---
Author Organization 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 When there are no FDA-approved or cleared tests available, and other criteria are met, FDA can make tests available under an emergency access mechanism called an Emergency Use Authorization (EUA). The EUA for this test is supported by the Metal Mockup Maker of Health and Human Service's declaration that [...] used). Performed By: #### C VDTBH #### [facility] [address] [place] [address] Dr. James Green INFLUENZA A AND B [facility] 04-27 [facility] SEE BELOW Normal [facility] Comment on above: Result Comment: Negative for Flu A prote in angiten. Infection due to Flu A cannot be ruled out. Flu A angiten in the sample may be below the detection limit of the test. Performed By: #### I NFLUAB #### [facility] [address] [place] [address] Dr. James [facility] Normal [facility] Comment on above: Result Comment: Negative for Flu B prote in antigen. Infection due to Flu B cannot be ruled out. Flu B antigen in the sample may be below the detection limit of the test. Performed By: #### I NFLUAB #### [facility] [address] [place] [address] Dr. James Green INFLUENZA A AG Negative Normal NEGATIVE SEE COMMENT [facility] Comment on above: Performed By: #### INFLUAB #### [facility] [address] [place] [address] Dr. James Green INFLUENZA B AG Negative Normal NEGATIVE SEE COMMENT [facility] Comment on above: Performed By: #### INFLUAB #### [facility] [address] [place] [address] Dr. James Green XR CHEST 1 Von [...] FABI HEAD Date: 2022-04-27 07:47 Normal [facility] Encounters Encounter Date Encounter Type Care Provider Facility Start: 05-28-2022 End: 05-28-[address] DOCTOR HERNANDEZ Facility:H1 Start: 04-27-2022 End: 04-27-[address] JOHAN ROSEN Facility:H1 Start: 11-15-2021 End: 11-15-2021 ambulatory JESSICA HUNTER Facility:H1 Payers Date Payer Category Payer Unknown [id number] 1961 Medicare [id number] 1945 Unknown [id number] 2.16.84 [id number] 1945 Unknown [id number] 2.16.84 [id number] 1945 Unknown [id number] 2.16.84 [id number] Summary Purpose Family History No Family History Records Found Advance Directives No Advanced Directives Records Found Additional Source Comments (unrecognized sect ion and content) No Status Records Found INFORMATION SOURCE (unrecogn ized section and content) DATE CREATED AUTHOR 05/30/2022 The [facility] FOR RECORDS PERTAINING TO PATIENTS WHO [...] BE BASED ON THE PRIMARY CLINICAL RECORDS. [employer] provides no warranty or guarantee of the accuracy or completeness of information in this document.
[2023-11-14 11:13] LABS: Basophils Percent Auto 0.5 % (0.2-2.0); Eosinophils Absolute Auto 0.2 10^3/uL (0.0-0.7); Eosinophils Percent Auto 3.4 % (0.9-7.0); Hematocrit 34.3 % (42.0-54.0); Hemoglobin 11.5 g/dL (14.0-18.0); Lymphocytes Absolute Auto 1.6 10^3/uL (1.2-3.8); Lymphocytes Percent Auto 24.3 % (20.5-60.0); Mean Corpuscular HGB Conc 33.5 g/dL (29.9-35.2); Mean Corpuscular Hemoglobin 30.2 pg (25.9-34.0); Mean Platelet Volume 11.8 fL (9.5-13.5); Monocytes Absolute Auto 0.4 10^3/uL (0.3-0.8); Monocytes Percent Auto 5.7 % (1.7-12.0); Neutrophils Absolute Auto 4.3 10^3/uL (1.4-6.5); Neutrophils Percent Auto 66.1 % (43.0-75.0); Platelet Count 165 10^3/uL (150-450); Red Blood Count 3.81 10^6/uL (4.70-6.10); Red Cell Distribution Width 13.7 % (11.0-15.0); White Blood Count 6.5 10^3/uL (4.0-11.0)
[2023-11-14 11:33] LABS: Anion Gap 13.5; BUN Creatinine Ratio 14.7; Calcium 9.2 mg/dL (8.5-10.1); Carbon Dioxide 25.3 mmol/L (21.0-32.0); Chloride 105 mmol/L (98-107); Estimated GFR (African America >60 (>=60); Estimated GFR (Non-African Ame >60 (>=60); Glucose 100 mg/dL (74-106); Potassium 4.8 mmol/L (3.5-5.1); Sodium 139 mmol/L (136-145)
== END 2023-11-14 10:56 | disposition home or self-care (01) ==
LOC: LAB 10:56
PROVIDERS: Visit Provider Internal Medicine Interventional Cardiology
DX: I25.118 Atherosclerotic heart disease of native coronary artery with other forms of angina pectoris (principal)
CPT/HCPCS: 36415; 80048; 85025

== ENCOUNTER 2023-11-29 10:59 | Outpatient (OUT) | payer MEDICARE, SELFPAY ==
--- NOTE | 2023-11-29 11:00 | CA_ITS ---
Patient Name: FLACO ACOSTA MR#: [id number] : 1945 Exam Date: 11/29/2023 Ordering Doctor: DR CHRISTOPHER RUSSO M.D. ECHOCARDIOGRAM REPORT PROCEDURE: CA ECHO LIMITED INDICATIONS: Pericardial effusion COMPARISON: None. DESCRIPTION: Limited ECHOCARDIOGRAM Real-time transthoracic echocardiography with 2D and M-mode performed. QUALITY: Technical quality was good. LEFT VENTRICLE: Normal chamber size. Moderate concentric left ventricular hypertrophy. Global left ventricular systolic function is normal. LV EF: Visual estimation of left ventricular ejection fraction is 60-65%. DIASTOLIC: ATRIAL SEPTUM: LEFT ATRIUM: Normal chamber size. RIGHT ATRIUM: Mild dilatation. RIGHT VENTRICLE: Normal chamber size. Normal right ventricular systolic function. TRICUSPID VALVE: Normal mobility and thickness. MITRAL VALVE: Normal mobility and thickness. AORTIC VALVE: Normal trileaflet appearance. Normal leaflet mobility. AORTIC ROOT: Normal diameter and appearance. PULMONIC VALVE: Normal thickness and mobility. PERICARDIUM: Trivial pericardial effusion. IVC: Collapses with inspirations. Normal size. PLEURA: CONCLUSION: 1. Moderate concentric left ventricular hypertrophy with normal systolic function. Estimated LVEF is 60 to 65%. 2. Normal right ventricular size and systolic function. 3. Trivial pericardial effusion. Adult Echocardiography Procedure Report Left Ventricle LVEDD (3.7 - 5.6 cm): 4.58 cm LVESD (2.2 - 4.0 cm): 3.15 cm LVIVS thickness (0.6 - 1.2 cm): 1.41 cm LVPW thickness (0.5 - 1.0 cm): 1.50 cm LVOT Diameter 2.24 cm Left Ventricular Ejection Fraction: 60-65% Left Atrium LA Volume Index (2D A2C): 23.54 ml/m2 Left Atrium Systolic Dimension: 3.39 cm Mitral Valve Right Ventricle RV Internal Diastolic Dimension: 3.84 cm Aorta AO Root Diam: 3.94 cm Aortic Valve Tricuspid Valve Pulmonic Valve Right Atrium Right Atrium Systolic Pressure: 52.00 ml, 52.00 ml Dictated by: Christopher Russo M.D. on 11/29/2023 at 13:32 Approved by: Christopher Russo M.D. on 11/29/2023 at 13:35
--- OUTSIDE RECORDS SUMMARY | 2023-11-29 11:03 | XMS_ITS | CCD ---
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/an tiplatelets; Translations: [CLINICAL ACCOUNT EXECUTIVE ANTITHROMBOT/ANTIP LATLETS] Onset: 11-17-2021 Episodic Unclassified (1 [...] FABI COBB Date: 2022-05-28 20:53 Normal [facility] CT HEAD WO CONon 05-28-2022 [...] VAIBHAV ROJAS Date: 2022-05-28 21:17 Normal [facility] Covid-19 PCR (CVDTB)on 04-01 SARS-CoV-2 (COVID-19) RNA VINH+probe Ql (Unsp spec) Detected Critically abnormal NOT DETECTED [facility] Comment on above: Result Comment: This test is not yet az roved or cleared by the [place] FDA. When there are no FDA-approved or cleared tests available, and other criteria are met, FDA can make tests available under an emergency access mechanism called an Emergency Use Authorization (EUA). The EUA for this test is supported by the Red Mud Thickener Operator of Health and Human Service's declaration that [...] used). Performed By: #### C VDTBH #### [facility] [address] [place] [address] Dr. James Green INFLUENZA A AND B [facility] 04-27 [facility] SEE BELOW Normal [facility] Comment on above: Result Comment: Negative for Flu A prote in angiten. Infection due to Flu A cannot be ruled out. Flu A angiten in the sample may be below the detection limit of the test. Performed By: #### I NFLUAB #### [facility] [address] [place] [address] Dr. James [address] [facility] SEE BELOW Normal [facility] Comment on above: Result Comment: Negative for Flu B prote in antigen. Infection due to Flu B cannot be ruled out. Flu B antigen in the sample may be below the detection limit of the test. Performed By: #### I NFLUAB #### [facility] [address] [place] [address] Dr. James Green INFLUENZA A AG Negative Normal NEGATIVE SEE COMMENT [facility] Comment on above: Performed By: #### INFLUAB #### [facility] [address] [place] [address] Dr. James Green INFLUENZA B AG Negative Normal NEGATIVE SEE COMMENT [facility] Comment on above: Performed By: #### INFLUAB #### [facility] [address] [place] [address] Dr. James Green XR CHEST 1 Von [...] FABI HEAD Date: 2022-04-27 07:47 Normal [facility] Encounters Encounter Date Encounter Type Care Provider Facility Start: 05-28-2022 End: 05-28-[address] DOCTOR HERNANDEZ Facility:H1 Start: 04-27-2022 End: 04-27-[address] JOHAN ROSEN Facility:H1 Start: 11-15-2021 End: 11-15-2021 ambulatory JESSICA HUNTER Facility:H1 Payers Date Payer Category Payer Unknown [id number] 1961 Medicare [id number] 1945 Unknown [id number] 2.16.84 [id number] 1945 Unknown [id number] 2.16.84 [id number] 1945 Unknown [id number] 2.16.84 [id number] Summary Purpose Family History No Family History Records Found Advance Directives No Advanced Directives Records Found Additional Source Comments (unrecognized sect ion and content) No Status Records Found INFORMATION SOURCE (unrecogn ized section and content) DATE CREATED AUTHOR 05/30/2022 The [place] FOR RECORDS PERTAINING TO PATIENTS WHO ARE [...] BE BASED ON THE PRIMARY CLINICAL RECORDS. [employer] provides no warranty or guarantee of the accuracy or completeness of information in this document.
== END 2023-11-29 11:00 | disposition home or self-care (01) ==
LOC: CARD 11:00
PROVIDERS: Visit Provider Internal Medicine Interventional Cardiology
DX: I31.39 Other pericardial effusion (noninflammatory) (principal)
CPT/HCPCS: 93308

== ENCOUNTER 2023-12-18 07:08 | Outpatient (RCR) | payer MEDICARE, SELFPAY ==
--- NOTE | 2023-09-13 14:59 | CR1_ITS ---
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
--- NOTE | 2023-09-18 13:33 | CR1_ITS ---
[facility] Test Date: 2023-09-18 Pat Name: FLACO ACOSTA Department: Room: - Gender: Male Internal Investigator: : 1945 Requested By: JADEN CHURCH Order Number: [id number] Reading MD: JADEN CHURCH Interpretive Statements Session Date: Electronically Signed On 09-19-2023 22:49:14 EDT by JADEN CHURCH
--- NOTE | 2023-10-17 11:27 | CR1_ITS ---
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
--- NOTE | 2023-11-16 08:03 | CR1_ITS ---
The [facility] Test Date: 2023-11-16 Pat Name: FLACO ACOSTA Department: Room: - Gender: Male Corporate Associate: : 1945 Requested By: JADEN CHURCH Order Number: [id number] Reading MD: JADEN CHURCH Interpretive Statements Session Date: Electronically Signed On 11-24-2023 18:25:22 EDT by JADEN CHURCH
--- NOTE | 2023-12-18 11:48 | CR1_ITS ---
The [facility] Test Date: 2023-12-18 Pat Name: FLACO ACOSTA Department: Room: - Gender: Male Final Application Reviewer: : 1945 Requested By: JADEN CHURCH Order Number: [id number] Reading MD: JADEN CHURCH Interpretive Statements Session Date: Electronically Signed On 12-18-2023 23:11:33 EDT by JADEN CHURCH
== END 2023-12-18 11:57 | disposition home or self-care (01) ==
LOC: CR 07:08
DX: Z98.61 Coronary angioplasty status (principal)
CPT/HCPCS: 93798

== ENCOUNTER 2024-04-26 13:31 | Emergency (ER) | payer MEDICARE, SELFPAY ==
[2024-04-26 13:33] VITALS: BP 144/59; PULSE 57; TEMP 36.6; O2SAT 96; BMI 29.9
--- NOTE | 2024-04-26 13:40 | XR_ITS ---
The [address] [address] Patient Name: FLACO ACOSTA MRN: [id number] date: 1945 Sex: M Assigned Patient Location: ER Current Patient Location: Accession/Order Number: [id number] Exam Date: 04/26/2024 13:50 Report Date: 04/26/2024 15:17 At the request of: JAYNE BOONE Procedure: XR hand RT min 3V PROCEDURE: XR hand RT min 3V HISTORY: Cat bite COMPARISON: None. FINDINGS: BONES:No fracture, acute abnormality, or significant arthropathy. SOFT TISSUES:No visible soft tissue swelling. EFFUSION:None visible. OTHER: Negative. XR/XR hand RT min 3V IMPRESSION: 1. No radiopaque foreign body. 2. Multifocal mild degenerative joint disease. Electronically authenticated by: SASCHA CRANDALL Date: 04/26/2024 15:17
--- OUTSIDE RECORDS SUMMARY | 2024-04-26 13:41 | XMS_ITS | CCD ---
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; Translations: [OTH JAIL CURRENT DRUG THERAPY] Onset: 05-30-2022 Episodic Other [...] Onset: 11-15-2021 Episodic Other aftercare (1 source) [facility] (current) use of antithrombotics/an tiplatelets; Translations: [CENTER LINE CUTTER OPERATOR ANTITHROMBOT/ANTIP LATLETS] Onset: 11-17-2021 Episodic Unclassified (1 [...] Date: 2022-05-28 20:53 Normal [facility] CT HEAD WO CONon 05-28-2022 CT [...] VAIBHAV ROJAS Date: 2022-05-28 21:17 Normal [facility] Covid-19 PCR (CVDTB)on 04-01 SARS-CoV-2 (COVID-19) RNA VINH+probe Ql (Unsp spec) Detected Critically abnormal NOT DETECTED [facility] Comment on above: Result Comment: This test is not yet az roved or cleared by the [place] FDA. When there are no FDA-approved or cleared tests available, and other criteria are met, FDA can make tests available under an emergency access mechanism called an Emergency Use Authorization (EUA). The EUA for this test is supported by the Master Ship of Health and Human Service's declaration that [...] used). Performed By: #### C VDTBH #### [facility] [address] [place] [address] Dr. James Green INFLUENZA A AND B [facility] 04-27 [facility] SEE BELOW Normal [facility] Comment on above: Result Comment: Negative for Flu A prote in angiten. Infection due to Flu A cannot be ruled out. Flu A angiten in the sample may be below the detection limit of the test. Performed By: #### I NFLUAB #### [facility] [address] [place] [address] Dr. [facility] BEL[facility] Normal [facility] Comment on above: Result Comment: Negative for Flu B prote in antigen. Infection due to Flu B cannot be ruled out. Flu B antigen in the sample may be below the detection limit of the test. Performed By: #### I NFLUAB #### [facility] [address] [place] [address] Dr. James Green INFLUENZA A AG Negative Normal NEGATIVE SEE COMMENT [facility] Comment on above: Performed By: #### INFLUAB #### [facility] [address] [place] [address] Dr. James Green INFLUENZA B AG Negative Normal NEGATIVE SEE COMMENT [facility] Comment on above: Performed By: #### INFLUAB #### [facility] [address] [place] [address] Dr. James Green XR CHEST 1 Von [...] FABI HEAD Date: 2022-04-27 07:47 Normal [facility] Encounters Encounter Date Encounter Type Care Provider Facility Start: 05-28-2022 End: 05-28-[address] DOCTOR HERNANDEZ Facility:H1 Start: 04-27-2022 End: 04-27-[address] JOHAN ROSEN Facility:H1 Start: 11-15-2021 End: 11-15-2021 ambulatory JESSICA HUNTER Facility:H1 Payers Date Payer Category Payer Unknown [id number] 1961 Medicare [id number] 1945 Unknown [id number] 2.16.84 [id number] 1945 Unknown [id number] 2.16.84 [id number] 1945 Unknown [id number] 2.16.84 [id number] Summary Purpose Family History No Family History Records Found Advance Directives No Advanced Directives Records Found Additional Source Comments (unrecognized sect ion and content) No Status Records Found INFORMATION SOURCE (unrecogn ized section and content) DATE CREATED AUTHOR 05/30/2022 The [facility] FOR RECORDS PERTAINING TO PATIENTS WHO [...] BE BASED ON THE PRIMARY CLINICAL RECORDS. [employer] provides no warranty or guarantee of the accuracy or completeness of information in this document.
--- NOTE | 2024-04-26 13:42 | ED_ITS ---
HPI HPI - General Adult General Stated complaint: ANIMAL BITE Time Seen by Provider: 04/26/24 13:33 Source: patient Mode of arrival: walk-in Limitations: no limitations History of Present Illness HPI narrative: Patient is an 78-year-old male who presents to the emergency department for evaluation of a cat bite to the right hand that was sustained 1 hour prior to arrival by an abandoned cat in the area. Patient has not had any significant bleeding. He has 2 small puncture wounds on the dorsum of the right hand with no lacerations. He states he had a tetanus shot 1 year ago. No other associated injuries. Related Data Home Medications ?Medication ?Instructions ?Recorded ?Confirmed calcium 600 mg (as 1 tab PO DAILY 04/30/23 05/24/23 carbonate)-vitamin D3 10 mcg (400 unit) tablet (Calcium 600 + D(3)) clopidogrel 75 mg tablet 75 mg PO DAILY 04/30/23 05/24/23 cyanocobalamin (vitamin B-12) 1,000 mcg PO DAILY 04/30/23 05/24/23 1,000 mcg capsule spironolactone 25 mg tablet 12.5 mg PO DAILY 04/30/23 05/24/23 (Aldactone) vit C 250 mg-vit E 90 mg-zinc 40 1 tab PO BID 04/30/23 05/24/23 mg-copper 1 cy-vydace-usqbye capsule (PreserVision AREDS-2) isosorbide mononitrate 30 mg 30 mg PO QDAY 05/24/23 05/24/23 tablet,extended release 24 hr metoprolol succinate 25 mg 12.5 mg PO QDAY 05/24/23 05/24/23 tablet,extended release 24 hr oxybutynin chloride 5 mg tablet 2.5 mg PO BID 05/24/23 05/24/23 Previous Rx's ?Medication ?Instructions ?Recorded levofloxacin 500 mg tablet 500 mg PO Q24H 7 days #7 tabs 04/26/24 metronidazole 500 mg tablet 500 mg PO Q12H 7 days #14 tabs 04/26/24 Allergies Allergy/AdvReac Type Severity Reaction Status Date / Time Penicillins Allergy Hives Verified 05/23/23 14:52 Opioid HPI Opioid Management Most Recent Opioid Data: Last Pain Scale 0 05/24/23 10:52 05/24/23 Review of Systems ROS Constitutional Denies: fever or chills Cardiovascular Denies: chest pain Respiratory Denies: shortness of breath Gastrointestinal Denies: nausea or vomiting Integumentary/Breast Denies: rash Hematologic/Lymphatic Reports: easy bruising and easy bleeding [facility], [facility] Medical History (Updated 04/26/24 @ 13:46 by IKER Barnes) Stage 3a chronic kidney disease (CKD) ?N18.31 - Chronic kidney disease, stage 3a (ICD-10) Ischemic cardiomyopathy ?I25.5 - Ischemic cardiomyopathy (ICD-10) CAD (coronary artery disease) ?I25.10 - Atherosclerotic heart disease of [place] coronary artery without angina pectoris (ICD-10) Hypertension ?I10 - Essential (primary) hypertension (ICD-10) Symptomatic bradycardia ?R00.1 - Bradycardia, unspecified (ICD-10) Prostate cancer ?C61 - Malignant neoplasm of prostate (ICD-10) Left-sided weakness ?R53.1 - Weakness (ICD-10) Stroke ?I63.9 - Cerebral infarction, unspecified (ICD-10) Surgical History (Updated 05/01/23 @ 03:04 by Adrianne Rios) H/O hernia repair ?Z98.890 - Other specified postprocedural states (ICD-10) ?Z87.19 - Personal history of other diseases of the digestive system (ICD-10) History of appendectomy ?Z90.49 - Acquired absence of other specified parts of digestive tract (ICD- 10) Hx of tonsillectomy ?Z90.89 - Acquired absence of other organs (ICD-10) H/O heart artery stent ?Z95.5 - Presence of coronary angioplasty implant and graft (ICD-10) Social History Smoking status: Former smoker Highest level of school completed/degree received: high school graduate Little interest or pleasure in doing things: not at all Feeling down, depressed, or hopeless: not at all Exam Narrative Exam Narrative: Gen.: Awake, alert, in no distress Head: Normocephalic, atraumatic ENT: Moist mucous membranes Respiratory: No respiratory distress Extremities: 2 small puncture wounds noted to the dorsum of the right hand at the webspace between the thumb and index finger. No deep lacerations noted, no active bleeding. Psych: Normal mood and affect Neuro: No focal neuro deficit Skin: Warm, dry Constitutional Vital Signs, click to edit/add: Last Vital Signs Temp 97.9 F 04/26/24 13:33 Pulse 57 L 04/26/24 13:33 Resp 118 H 04/26/24 13:33 BP 144/59 H 04/26/24 13:33 Pulse Ox 96 04/26/24 13:33 O2 Del Method Room Air 04/26/24 13:33 Course Vital Signs Vital signs: Vital Signs Temperature 97.9 F 04/26/24 13:33 Pulse Rate 57 L 04/26/24 13:33 Respiratory Rate 118 H 04/26/24 13:33 Blood Pressure 144/59 H 04/26/24 13:33 Pulse Oximetry 96 04/26/24 13:33 Oxygen Delivery Method Room Air 04/26/24 13:33 Temperature 97.9 F 04/26/24 13:33 Pulse Rate 57 L 04/26/24 13:33 Respiratory Rate 118 H 04/26/24 13:33 Blood Pressure 144/59 H 04/26/24 13:33 Pulse Oximetry 96 04/26/24 13:33 Oxygen Delivery Method Room Air 04/26/24 13:33 Medical Decision Making MDM Narrative Medical decision making narrative: X-ray obtained to rule out foreign body or bony involvement. Tetanus is up-to-date. The area was cleansed and dressed with bacitracin and Band-Aid. No indication for suture repair. Patient will be placed on a 7-day course of Levaquin and Flagyl as he is allergic to penicillin. Follow-up with PCP and return to the ER if symptoms change or worsen SUPERVISED APC VISIT, PHYSICIAN ATTESTATION: Based on the medical record the care appears appropriate. ? Medical Records Medical records reviewed: Yes I reviewed the patient's medical records Imaging Data XR hand: Attestation: I have reviewed the pertinent imaging results. Discharge Plan Discharge Clinical Impression: Cat bite of right hand Patient Disposition: Home, Self-Care Time of Disposition Decision: 13:46 Condition: Good Prescriptions / Home Meds: New metronidazole 500 mg tablet 500 mg PO Q12H 7 Days Qty: 14 0RF levofloxacin 500 mg tablet 500 mg PO Q24H 7 Days Qty: 7 0RF No Action clopidogrel 75 mg tablet 75 mg PO DAILY spironolactone [Aldactone] 25 mg tablet 12.5 mg PO DAILY PreserVision AREDS-2 250-90-40-1 mg capsule 1 tab PO BID cyanocobalamin (vitamin B-12) 1,000 mcg capsule 1,000 mcg PO DAILY calcium carbonate-vitamin D3 [Calcium 600 + D(3)] 600 mg-10 mcg (400 unit) tablet 1 tab PO DAILY isosorbide mononitrate 30 mg tablet extended release 24 hr 30 mg PO QDAY metoprolol succinate 25 mg tablet extended release 24 hr 12.5 mg PO QDAY oxybutynin chloride 5 mg tablet 2.5 mg PO BID Print Language: Mongolian Instructions: Human Bite (ED) Referrals: Evangelina Daigle MD [Primary Care Provider] - 1 week
[2024-04-26] MEDS: BACITRACIN 0.9 GM PACKET 1 PACKET TOPICAL (14:01)
== END 2024-04-26 14:25 | disposition home or self-care (01) ==
PROVIDERS: Emergency Provider Emergency Medicine; PCP Internal Medicine Interventional Cardiology
DX: S61.431A Puncture wound without foreign body of right hand, initial encounter (principal); W55.01XA Bitten by cat, initial encounter; Z95.5 Presence of coronary angioplasty implant and graft; Z87.891 Personal history of nicotine dependence
CPT/HCPCS: 73130; 99283

== ENCOUNTER 2024-04-30 07:05 | Outpatient (RCR) | payer MEDICARE, SELFPAY | END 2024-05-02 08:40 | disposition home or self-care (01) | LOC: CRPH3 07:05 | PROVIDERS: PCP Internal Medicine Interventional Cardiology; Visit Provider Internal Medicine Interventional Cardiology | DX: Z98.61 Coronary angioplasty status (principal) ==

== ENCOUNTER 2024-06-21 06:35 | Outpatient (OUT) | payer MEDICARE, SELFPAY ==
--- OUTSIDE RECORDS SUMMARY | 2024-06-21 06:38 | XMS_ITS | CCD ---
Author Organization [facility] Care Team Providers Care Special Needs Bus Driver Name Role Phone JESSICA HUNTER Admitting Unavailable ELSA, JESSICA Attending Unavailable JESSICA HUNTER Consulting Unavailable MISC, DR SMITH Primary Care [...] COBB Consulting Unavailable VAIBHAV ROJAS Consulting Unavailable LOUISE, DO SHARMAINE Ferrell Attending Unavailable SHARMAINE GIL Primary Care Unavailable Allergies Allergy Classification Reported Allergen(s) Allergy Type Date of Onset Reaction(s) Facility (1 source) Oxytetracycline Drug Allergy 2 [facility] Repository (1 source) Penicillins Drug allergy (disorder) 3 [facility] Repository Problems Active Problems Problem Classification Problem [...] 05-28-2022 Episodic Other aftercare (1 source) 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; Translations: [[employer] CURRENT DRUG THERAPY] Onset: 05-30-2022 Episodic Other [...] Onset: 11-15-2021 Episodic Other aftercare (1 source) [facility] (current) use of antithrombotics/an tiplatelets; Translations: [LONGTERM ANTITHROMBOT/ANTIP LATLETS] Onset: 11-17-2021 Episodic Unclassified (1 [...] FABI COBB Date: 2022-05-28 20:53 Normal [facility] CT HEAD WO CONon 05-28-2022 CT HEAD [...] VAIBHAV ROJAS Date: 2022-05-28 21:17 Normal [facility] Covid-19 PCR (CVDTBH)on 04-01 SARS-CoV-2 (COVID-19) RNA VINH+probe Ql (Unsp spec) Detected Critically abnormal NOT DETECTED [facility] Comment on above: Result Comment: This test is not yet az roved or cleared by the [place] FDA. When there are no FDA-approved or cleared tests available, and other criteria are met, FDA can make tests available under an emergency access mechanism called an Emergency Use Authorization (EUA). The EUA for this test is supported by the [employer] In[employer] of Health and Human Service's declaration that [...] used). Performed By: #### C VDTBH #### [facility] [address] [place] [address] Dr. James Green INFLUENZA A AND B AGon 04-27 INFLUANE SEE BELOW Normal [facility] Comment on above: Result Comment: Negative for Flu A prote in angiten. Infection due to Flu A cannot be ruled out. Flu A angiten in the sample may be below the detection limit of the test. Performed By: #### I NFLUAB #### [facility] [address] [place] [address] Dr. [facility] Normal [facility] Comment on above: Result Comment: Negative for Flu B prote in antigen. Infection due to Flu B cannot be ruled out. Flu B antigen in the sample may be below the detection limit of the test. Performed By: #### I NFLUAB #### [facility] [address] [place] [address] Dr. James Green INFLUENZA A AG Negative Normal NEGATIVE SEE COMMENT [facility] Comment on above: Performed By: #### INFLUAB #### [facility] [address] [place] [address] Dr. James Green INFLUENZA B AG Negative Normal NEGATIVE SEE COMMENT [facility] Comment on above: Performed By: #### INFLUAB #### [facility] [address] [place] [address] Dr. James Green XR CHEST 1 Von [...] FABI HEAD Date: 2022-04-27 07:47 Normal [facility] Encounters Encounter Date Encounter Type Care Provider Facility Start: 06-19-2024 ambulatory DO SHARMAINE GIL [facility]ixon lity:[facility] Start: 05-28-2022 End: 05-28-[address] DOCTOR MTZ Facility:[facility] Start: 04-27-2022 End: 04-27-[address] JOHAN ROSEN Facility:[facility] Start: 11-15-2021 End: 11-15-2021 ambulatory JESSICA HUNTER Facility:[facility] Payers Date Payer Category Payer Self-pay 2019 Unknown [id number] 1961 Medicare [id number] 1945 Unknown [id number] [id number] [id number] 1945 Unknown [id number] [id number] [id number] 1945 Unknown [id number] [id number] [id number] 1945 Unknown [id number] Summary Purpose Family History No Family History Records FoundNo Family History Records Found Advance Directives No Advanced Directives Records FoundNo Advanced Directives Records Found Additional Source Comments (unrecognized sect ion and content) No Status Records FoundNo Status Records Found INFORMATION SOURCE (unrecogn ized section and content) DATE CREATED AUTHOR 05/30/2022 [facility] DATE CREATED AUTHOR AUTHOR'S ORGANIZ ATION 06/17/2024 [facility] FOR RECORDS PERTAINING TO PATIENTS [...] BE BASED ON THE PRIMARY CLINICAL RECORDS. [facility] [employer] [facility]. provides no warranty or guarantee of the accuracy or completeness of information in this document.
[2024-06-21 07:02] LABS: Basophils Percent Auto 0.5 % (0.2-2.0); Eosinophils Absolute Auto 0.2 10^3/uL (0.0-0.7); Eosinophils Percent Auto 2.8 % (0.9-7.0); Hematocrit 35.6 % (42.0-54.0); Hemoglobin 11.7 g/dL (14.0-18.0); Immature Granulocytes Abs Auto 0.02 10^3/uL (0.00-0.03); Immature Granulocytes Pct Auto 0.3 % (0.0-0.5); Lymphocytes Absolute Auto 1.4 10^3/uL (1.2-3.8); Lymphocytes Percent Auto 22.1 % (20.5-60.0); Mean Corpuscular HGB Conc 32.9 g/dL (29.9-35.2); Mean Corpuscular Volume 85.2 fL (80.0-94.0); Mean Platelet Volume 11.3 fL (9.5-13.5); Monocytes Absolute Auto 0.4 10^3/uL (0.3-0.8); Monocytes Percent Auto 6.4 % (1.7-12.0); Neutrophils Absolute Auto 4.1 10^3/uL (1.4-6.5); Neutrophils Percent Auto 67.9 % (43.0-75.0); Platelet Count 192 10^3/uL (150-450); Red Blood Count 4.18 10^6/uL (4.70-6.10); Red Cell Distribution Width 15.4 % (11.0-15.0); White Blood Count 6.1 10^3/uL (4.0-11.0)
[2024-06-21 07:57] LABS: Alanine Aminotransferase 22 U/L (16-63); Albumin Level 3.7 g/dL (3.4-5.0); Alkaline Phosphatase 51 U/L (46-116); Anion Gap 14.8; Aspartate Amino Transferase 43 U/L (15-37); BUN Creatinine Ratio 16.2; Bilirubin Total 0.4 mg/dL (0.2-1.0); Calcium 9.1 mg/dL (8.5-10.1); Carbon Dioxide 23.9 mmol/L (21.0-32.0); Chloride 104 mmol/L (98-107); Chol HDL Ratio 1.8; Cholesterol 80 mg/dL (<=200); Estimated GFR (African America >60 (>=60 mL/min/1.73m^2); Estimated GFR (Non-African Ame 53 (>=60 mL/min/1.73m^2); Globulin 3.7 g/dL; Glucose 123 mg/dL (74-106); HDL Cholesterol 44 mg/dL (40-60); LDL Cholesterol Calculated 25.4 mg/dL; Potassium 4.7 mmol/L (3.5-5.1); Sodium 138 mmol/L (136-145); Total Protein 7.4 g/dL (6.4-8.2); Triglycerides 53 mg/dL (<=150); VLDL CHOLESTEROL 10.6 mg/dL
== END 2024-06-21 06:36 | disposition home or self-care (01) ==
LOC: LAB 06:36
PROVIDERS: PCP Family Medicine; Visit Provider Internal Medicine Interventional Cardiology
DX: E78.2 Mixed hyperlipidemia (principal); I25.118 Atherosclerotic heart disease of native coronary artery with other forms of angina pectoris; I10 Essential (primary) hypertension
CPT/HCPCS: 36415; 80053; 80061; 85025

== ENCOUNTER 2024-10-04 15:18 | Inpatient (IN) | payer OTHER, MEDICARE, SELFPAY ==
--- OUTSIDE RECORDS SUMMARY | 2011-08-15 02:04 | XMS_ITS | Encounter Summary ---
Author Organization [facility] Address [address] [place] [address] Care Team Providers Care Medical Health Researcher Name Role Phone Unavailable Primary Care Provider Unavailabl e Encounter Details Date Type Department Care Team (Late st Contact Info) Description 08/15/2011 2:04 AM EDT Hospital Encounter [facility] [address] [id number] Conrad Stearns, DPM [address] [place] [address] Social History Tobacco Use Types Packs/Day Years Used Date Smoking Tobacco: Never Assessed Sex and Gender Information Value Date Recorded Sex Assigned at Not on file Legal Sex Male 5:48 PM EST Gender Identity Not on file Sexual Orientation Not on file documented as of this encounter Plan of Treatment Not on file documented as of this encounter Visit Diagnoses Not on filedocumented in this encounter
--- OUTSIDE RECORDS SUMMARY | 2024-04-22 06:45 | XMS_ITS ---
Author Organization [facility] vices Address [address] [place], [place] [id number] Care Team Providers Care Strap Buckler Machine Name Role Phone Bogdan Roger Primary Care Provider [phone] Aleksandra Warner [phone] REASON FOR VISIT Wellness Social History Sex Assigned At : Social History Observation Description Sex Assigned At Male Encounters Encounter Location Date Provider Diagnosis [facility] [address] [place] [address] 04/22/2024 Aleksandra Warner Plan Of Treatment No Information Progress Notes * DANIELMarioJohnOB:1945 (78 yo M)Acc No.[id number]:04/22/2024 Medical Note Patient: Angelito BROTHERS Provider: Navi Warner :1945 A ge:78 Y S ex:Male Date:04/22/2024 Address:[address] [place], [place] [id number] Pcp:Bogdan Roger Subjective: * Chief Complaints: * 1 . Wellness. * Medical History: Objective: * Vitals: Assessment: Plan: * Treatment: * Billing Information: * Visit Code: * Procedure Codes: * Electronic signature of ERWIN Kidd on 10/04/2024 at 01:01 PM EDT Sign off status: Pending * Provider: Navi Warner Date: 06/23/2023 Generated for Jesúsi lucho/Faxing/eTransmitting on: 0 10/04/2024 01:01 PM EDT
[2024-10-04] VITALS (7 sets, daily range): BP systolic 170–194; BP diastolic 72–80; PULSE 52–60; TEMP 36.6–36.8; O2SAT 94–98; BMI 32.6; BMI 34.0
--- OUTSIDE RECORDS SUMMARY | 2024-10-04 15:31 | XMS_ITS | Clinical Summary ---
Author Organization [facility] Address [address] [place] [address] Care Team Providers Care Overhead Cleaner Name Role Phone Natalya Puckett MD Primary Care Provid er Allergies Active Allergy Reactions Criticality Noted Date Comments Other Rash Low 05/29/2012 Penicillins Unknown,Hives 02/23/2012 Medications Medication Sig Dispensed Refills Start Date End Date Status calcium carbonate-vitamin D3 600 mg-10 mcg (400 unit) tablet Take 1 tablet by mouth in the morning and at bedtime. Active aspirin 81 mg EC tablet Take 81 mg by mouth. 08/23/2023 Active DULoxetine (Cymbalta) [address] capsule Take 20 mg by mouth. 10/26/2023 Active oxybutynin (Ditropan) 5 mg tablet Take 2.5 mg by mouth two times daily. 07/20/2023 Active clopidogrel (Plavix) 75 mg tabletIndications:C oronary artery disease of [place] artery of [place] heart with stable angina pectoris Take 1 tablet (75 mg) by mouth once daily as directed. 90 tablet 3 06/20/2024 Active ezetimibe (Zetia) 10 mg tabletIndications:M ixed hyperlipidemia Take 1 tablet (10 mg) by mouth once daily as directed. 90 tablet 3 06/20/2024 Active metoprolol succinate XL (Toprol-XL) 50 mg 24 hr tabletIndications:C oronary artery disease of [place] artery of [place] heart with stable angina pectoris Take 1 tablet (50 mg) by mouth once daily as directed. Do not crush or chew. 90 tablet 3 06/20/2024 Active rosuvastatin (Crestor) 20 mg tabletIndications:M ixed hyperlipidemia Take 1 tablet (20 mg) by mouth at bedtime. 90 tablet 3 06/20/2024 6 Active Additional Information Patient not taking.Reported on 09/16/2024 spironolactone (Aldactone) 25 mg tabletIndications:P rimary hypertension Take 1 tablet (25 mg) by mouth once daily as directed. 90 tablet 3 06/20/2024 6 Active isosorbide mononitrate ER (Imdur) 120 mg 24 hr tabletIndications:C oronary artery disease of [place] artery of [place] heart with stable angina pectoris Take 1 tablet (120 mg) by mouth in the morning. Do not crush or chew. 90 tablet 3 06/20/2024 6 Active rosuvastatin (Crestor) 10 mg tabletIndications:H yperlipidemia, unspecified hyperlipidemia type Take 1 tablet (10 mg) by mouth in the morning. 90 tablet 3 07/03/2024 6 Active nitroglycerin (Nitrostat) 0.4 mg SL tabletIndications:C oronary artery disease of [place] artery of [place] heart with stable angina pectoris Place 1 tablet (0.4 mg) under the tongue every 5 (five) minutes if needed for chest pain. May repeat dose every 5 minutes for up to 3 doses total. 25 tablet 3 09/16/2024 5 Active losartan (Cozaar) 100 mg tabletIndications:P rimary hypertension Take 1 tablet (100 mg) by mouth in the morning. 90 tablet 3 09/16/2024 6 Active ranolazine (Ranexa) 500 mg 12 hr tabletIndications:C oronary artery disease of [place] artery of [place] heart with stable angina pectoris Take 1 tablet (500 mg) by mouth two times daily. Do not crush, chew, or split. 180 tablet 3 09/16/2024 6 Active nitroglycerin (Nitrostat) 0.4 mg SL tabletIndications:C oronary artery disease of [place] artery of [place] heart with stable angina pectoris Place 1 tablet (0.4 mg) under the tongue every 5 (five) minutes if needed for chest pain. May repeat dose every 5 minutes for up to 3 doses total. 25 tablet 3 06/20/2024 5 Discontinu ed(Reorder ) losartan (Cozaar) 50 mg tabletIndications:P rimary hypertension Take 1 tablet (50 mg) by mouth in the morning. 90 tablet 3 06/20/2024 5 Discontinu ed(Dose adjustment ) losartan (Cozaar) 100 mg tabletIndications:P rimary hypertension Take 1 tablet (100 mg) by mouth in the morning. 90 tablet 3 09/16/2024 5 Discontinu ed(Reorder ) ranolazine (Ranexa) 500 mg 12 hr tabletIndications:C oronary artery disease of [place] artery of [place] heart with stable angina pectoris Take 1 tablet (500 mg) by mouth two times daily. Do not crush, chew, or split. 180 tablet 3 09/16/2024 Discontinu ed(Reorder ) Active Problems Problem Noted Date Diagnosed Date Age-related physical debility 11/29/2023 Need for assistance at home and no other household member able to render care 11/29/2023 Pericardial effusion 11/21/2023 Adjustment disorder with mixed anxiety and depre ssed mood 10/26/2023 Glaucoma suspect 09/06/2023 09/06/2023 Unstable angina 05/24/2023 NSTEMI (non-ST elevated myocardial infarction) 0 05/24/2023 Coronary artery disease of n ative artery of [place] heart with stable angina pectoris 05/08/2023 Assessment & Plan (05/08/2023 4:04 PM EST): Coronary artery disease is questionable- with concerning symptoms, known CAD with 2 stents- he has remained on plavix, no baby ASA , beta victor hugo and diltiazem was stopped r/t bradycardia. He is intolerant to statins- h/o mylagias with lipitor and crestor per pt. Start imdur 30 mg daily for angina- call office for concerns for headaches, low b/p, lightheadedness/dizziness. RTC [address] Cohen for further evaluation CARIAS (dyspnea on exertion) 05/08/2023 Assessment & Plan (05/08/2023 4:07 PM EST): Ordered echocardiogram for reported CARIAS, chest pain and known h/o CAD. Assess cardiac function, Rt sided pressures, and valvular function. 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 Seems to be having recurrent TIA symptoms and d/w pt and family to call 911 for Stroke symptoms and they voiced understanding. [facility] Ordered testing. Difficulty walking 05/08/2023 05/08/2023 Disorder of the skin and subcutaneous tissue, un specified 05/08/2023 05/08/2023 Elevated PSA 05/08/2023 05/08/2023 Encounter for immunization 05/08/202305/08 Encounter for fitting and adjustment of hearing aid 05/08/2023 05/08/2023 Epiretinal membrane 05/08/2023 05/08/2023 Open angle with borderline findings, low risk, b ilateral 05/08/2023 05/08/2023 Pseudophakia of both eyes 05/08/20232023 Presbyopia 05/08/2023 05/08/2023 Other specified disorders of lens 05/08/2023 05/08/2023 Inflamed seborrheic keratosis 05/08/2023 History of appendectomy 05/08/2023 05/08/19 24 Overview (05/08/2023): Mar 21, 2017 Entered By: RICKY MONROE MD Comment: 1968 Hyperlipidemia 05/08/2023 05/08/2023 Assessment & Plan (05/08/2023 4:02 PM EST): Intolerant to statins r/t myalgias. LDL > 70 with CAD- D/W pt about injectable management like repatha or praluent and they are going to consider. Hypertension 05/08/2023 05/08/2023 Assessment & Plan (05/08/2023 4:01 PM EST): Hypertension is currently stable and well controlled To start low dose Toprol 12.5 mg daily- monitor heart rate- call office if heart rate < 60 bpm Secondary malignant neoplasm of bone 05/08/2023 05/08/2023 Sensorineural hearing loss, bilateral 05/08/2023 05/08/2023 Unspecified disorder of binocular vision 024 05/08/2023 Vitamin B12 deficiency without anemia 05/08/2023 05/08/2023 Vitamin D deficiency 05/08/2023 05/08/2023 Bradycardia by electrocardiogram 05/08/2023 Overview (05/08/2023): Heart rate today 68 with holding of coreg and diltiazem Assessment & Plan (05/08/2023 4:08 PM EST): Heart rate stable today Start toprol 12.5 mg daily Encounters Date Type Department Care Team Description 09/16/2024 11:30 AM EDT Office Visit [address] [address] Christopher Mason MD Mixed hyperlipidemia (Primary Dx); Coronary artery disease of [place] artery of [place] heart with stable angina pectoris; Primary hypertension; S/P drug eluting coronary stent placement 09/16/2024 Orders Only [facility] [address] [place] [address] Talia Florian MA Primary hypertension; Coronary artery disease of [place] artery of [place] heart with stable angina pectoris from Last 3 Months Family History Relation Name Status Comments Father Mother Social History Tobacco Use Types Packs/Day Years Used Date Smoking Tobacco: Former Cigarettes 0.5 10 Cigars Smokeless Tobacco: Former Chew Tobacco Cessation:Counseling Given: Not Answered Alcohol Use Standard Drinks/Week Comments Never 0 (1 standard drink = 0.6 oz pur e alcohol) [facility] Utilities Answer Date Recorded In the past 12 months has th e electric, gas, oil, or water company threatened to shut off services in your home? No 11/21/2023 Humiliation, Afraid, Rape, and Kick questionnair e Answer Date Recorded Within the last year, have y ou been afraid of your partner or ex-partner? No 11/21/2023 Emotionally Abused Not on file 11/21/2023 Physically Abused Not on file 11/21/2023 Sexually Abused Not on file 11/21/2023 Overall Financial Resource Strain (CARDIA) Answe r Date Recorded How hard is it for you to pa y for the very basics like food, housing, medical care, and heating? Not very hard 11/21/2023 Transportation Answer Date Recorded In the past 12 months, has l ack of transportation kept you from medical appointments or from getting medications? No 11/21/2023 Lack of Transportation (Non-Medical) Not on file 11/21/2023 Housing Stability Vital Sign Answer Naresh e Recorded Unable to Pay for Housing in the Last Year Not o n file 11/21/2023 Number of Places Lived in the Last Year Not on f ile 11/21/2023 In the last 12 months, was t here a time when you did not have a steady place to sleep or slept in a longterm (including now)? No 11/21/2023 Hunger Vital Sign Answer Date Recorded Within the past 12 months, y ou worried that your food would run out before you got the money to buy more. Never true 11/21/19 24 Ran Out of Food in the Last Year Not on file 11/21/2023 Sex and Gender Information Value Date Recorded Sex Assigned at Not on file Gender Identity Not on file Sexual Orientation Not on file Last Filed Vital Signs Vital Sign Reading Time Taken Comments Blood Pressure 147/65 09/16/2024 12:18 PM EDT Pulse 52 09/16/2024 12:18 PM EDT Temperature 36.6 C (97.9 F) 11/24/2023 8:24 AM EDT Respiratory Rate 19 11/24/2023 10:00 AM EDT Oxygen Saturation 94% 09/16/2024 12:18 PM EDT Inhaled Oxygen Concentration - - Weight 115 kg (254 lb) 09/16/2024 12:18 PM EDT Height 182.9 cm (6') 09/16/2024 12:18 PM EDT Body Mass Index 34.45 09/16/2024 12:18 PM EDT Plan of Treatment Upcoming Encounters Date Type Department Care Team (Late st Contact Info) Description 10/21/2024 11:30 AM EDT Office Visit [facility] [address] [place] [address] Christopher Mason MD [address] [place] [address] [facility] [place] [address] Health Maintenance Due Date Last Done Comments Medicare Annual Wellness (AWV) 1945 Depression Screening 1957 Zoster Vaccines (1 of 2) 12/07/1993 Pneumococcal Vaccine: 65+ Years (2 of 2 - PPSV23 or PCV20) 11/25/2014 09/30/2014, 03/29/2012 COVID-19 Vaccine ( season) 2023 03/19/2021, 06/04/2020, 05/07/2020 Fall Risk Screening 11/23/2024 11/24/2023 Influenza Vaccine (Season Ended) 2024 02/07/2023, 02/17/2022, 01/29/2022, Additional history exists Adult Tetanus 02/21/2026 02/22/2016 HIB Vaccines Aged Out No longer eligi ble based on patient's age to complete this topic HPV Vaccines Aged Out No longer eligi ble based on patient's age to complete this topic IPV Vaccines Aged Out No longer eligi ble based on patient's age to complete this topic Meningococcal B Vaccine Aged Out No l onger eligible based on patient's age to complete this topic Meningococcal Vaccine Aged Out No andrew talha eligible based on patient's age to complete this topic Rotavirus Vaccines Aged Out No longer eligible based on patient's age to complete this topic Medical Devices Implanted Type Area Maintenance Operator Device Identifier Shelf Expiration Date Model / Serial / Lot Stent,Synergy Mr 3.50 X 20 - [id number] - [id number] Implanted:Qty: 1 on 05/30/2023 by Christopher Mason MD at [facility] Drug Eluting Stent [employer] [id number] 09/18/2024 [id number] / [id number] / [id number] Stent,Synergy Mr 2.25 X 24 - [id number] - [id number] Implanted:Qty: 1 on 05/30/2023 by Christopher Mason MD at [facility] Drug Eluting Stent [employer] [id number] 07/03/2024 [id number] / [id number] / [id number] Stent,Synergy Xd Mr 3.18f05pq - [id number] Implanted:Qty: 1 on 11/21/2023 by Christopher Mason MD at [facility] Drug Eluting Stent [employer] [id number] 08/28/2025 [id number] / / [id number] Stent,Synergy Mr 3.50 X 38 - [id number] Implanted:Qty: 1 on 11/21/2023 by Christopher Mason MD at [facility] Drug Eluting Stent [employer] [id number] 08/06/2025 [id number] / / [id number] Stent,Synergy Enrique,Joreg 4.0x24m - [id number] Implanted:Qty: 1 on 11/21/2023 by Christopher Mason MD at [facility] Stent [employer] [id number] 01/09/2025 [id number] / / [id number] Stent,Pk Papyrus,4.0/15 - [id number] Implanted:Qty: 1 on 11/21/2023 by Christopher Mason MD at [facility] Stent [employer] [id number] 09/20/2024 [id number] / / [id number] Stent,Pk Papyrus,4.5/15 - [id number] Implanted:Qty: 1 on 11/21/2023 by Christopher Mason MD at [facility] Stent [employer] [id number] 10/10/2024 [id number] / / [id number] Advance Directives Documents on File Type Date Recorded Patient Public Area Supervisor Expl anation Power of Salvage Engineer 06/01/2023 8:44 AM Health Care * Full Code (Latest Code Status on File) Date Activated Date Inactivated Comments 11/21/2023 1:13 PM 11/24/2023 6:29 PM * Full Code Date Activated Date Inactivated Comments 05/24/2023 4:39 PM 05/31/2023 7:03 PM Care Teams Overhead Cleaner Relationship Specialty Start Date End Date Natalya Puckett MD [address] PCP - General 05/30/23
--- OUTSIDE RECORDS SUMMARY | 2024-10-04 15:31 | XMS_ITS | Patient Health Record ---
Author Organization [facility] Address [address], [place] [id number] Care Team Providers Care Improvement Specialist Name Role Phone [email or web address] Monroy Primary Care Provider Aleksandra Warner Unavailable [phone] Allergies Allergen (clinical drug ingredient) Drug/Non Drug Allergy documented on EMR Reaction Allergy Type Onset Date Status Penicillin Unknown Drug Allergy Active Reason For Referral No Information Medications Medication SIG (Take, Route, Frequency, Duration) Notes Start Date End Date Status Metoprolol Tartrate 50 MG 1 tablet with food Orally Twice a day Active Bicalutamide 50 MG 1 tablet Orally Once a day Active Leuprolide Acetate (6 Month) 45 MG as directed Intramuscular Active Calcium + Vitamin D3 600-10 MG-MCG 1 tablet with a meal Orally Once a day Active oxyBUTYnin Chloride 5 MG 1 tablet Orally Once a day Active PreserVision AREDS 2 - as directed Orally Active Cyanocobalamin 1000 MCG 1 tablet Orally Once a day Active Spironolactone 25 MG 1 tablet Orally Active dilTIAZem HCl ER 180 MG 1 capsule Orally Once a day Not-Taking Plavix 75 MG 1 tablet Orally Once a day Active Immunizations Vaccine Route Administration Date Status Comme nts COVID-19 (Moderna)-Private Unknown 03/19/2021 Administe red DTP Unknown 11/15/2021 Administered Fluad (aIIV4) Unknown 03/19/2021 Administered Influenza, high-dose seasona l, quadrivalent, preservative free >65 yrs Unknown 02/17/2022 Administered Influenza, high-dose seasona l, quadrivalent, preservative free >65 yrs Unknown 02/07/2023 Administered Social History Tobacco Use: Social History Observation Description Date Details (start date - stop date) Former Smoker 05/01/1963 - 05/01/1976 Sex Assigned At : Social History Observation Description Sex Assigned At Male Tobacco Use/Smoking Question Answer Notes Tobacco use: former smoker patient enter ed data How long has it been since you last smoked? > 10 years patient entered data When did you start smoking? 05/01/1963 alexei bensonient entered data When did you stop smoking? 05/01/1976 allan marcus entered data CAGE-AID Questionnaire (2018 Edition) Question Answer Notes Have you ever felt that you ought to cut down on your drinking or drug use? No patient entered data Have people annoyed you by c riticizing your drinking or drug use? No patient entered data Have you ever felt bad or gu ilty about your drinking or drug use? No patient entered data Have you ever had a drink or used drugs first thing in the morning to steady your nerves or to get rid of a hangover? No patient entered data CAGE-AID Score 0 Interpretation Negative PRAPARE Question Answer Notes Date Completed/Updated: 05/04/2023 ashley yost entered data What is your current housing situation? I have housing patient entered data Are you worried about losing your housing? No patient entered data What is the highest level of school that you have finished? High school diploma or GED patient entered data What is your current work situation? Otherwise unemployed but not seeking work (ex. 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 Check all that apply I do not have problems meeting my needs Has lack of transportation k ept you from medical appointments, meetings, work or from getting things needed for daily living? No How often do you see or talk to people that you care about and feel close to? (For example: talking to friends on the phone, visiting friends or family, going to restorationism or club meetings) 1 or 2 times a week patient entered data How stressed are you? Stress is when someone feels tense, nervous, anxious, or can't sleep at night because their mind is troubled Not at all patient entered data In the past year have you sp ent more than 2 nights in a row in a fdc, halfway, shelter center, or juvenile correctional facility? No patient entered data Are you a refugee? No patient en tered data What country are you from? [place] allan marcus entered data Do you feel physically and emotionally safe where you currently live? Yes patient entered data In the past year, have you b een afraid of your partner or ex-partner? No patient entered data PRAPARE Score: 6 Problems Problem Type SNOMED Code ICD Code Onset Dates Problem Status W/U Status Risk Notes Problem Mixed hyperlipidemia (401805205) Mixed hyperlipidemia (E78.2) Active confirmed Problem Hypertension (I10) Active confirmed Problem 33913550 Coronary artery disease, unspecified vessel or lesion type, unspecified whether angina present, unspecified whether [place] or transplanted heart (I25.10) Active confirmed Plan Of Treatment No Information Insurance Providers Payer Name Payer Address Payer Phone Subscriber Number Group Number Insured Name Patient Relationship to Insured Coverage Start Date Coverage End Date [employer] [address] [address] [place] [id number] [phone] [id number] Angelito Sanchez Self - patient is the insured 3 Medicare [facility] [address] [place], [place] [id number] Angelito Sanchez Self - patient is the insured 9 3 Medical (General) History Medical History History ICD Code Prostate cancer C61 Hypertension I10 Mixed hyperlipidemia E78.2 CVA (cerebral infarction) I63.9 Surgical History Surgery Date(Month/Year) tonsillectomy appendectomy hernia fatty tissue removal Hospitalization History Reason Date(Month/Year) [facility] 05/2023
--- OUTSIDE RECORDS SUMMARY | 2024-10-04 15:31 | XMS_ITS | Clinical Summary ---
Author Organization [facility] Healthcare Address [address] [place] [address] Care Team Providers Care Freelance Digital Project Manager Name Role Phone Unavailable Primary Care Provider Unavailabl e Social History Tobacco Use Types Packs/Day Years Used Date Smoking Tobacco: Never Assessed Sex and Gender Information Value Date Recorded Sex Assigned at Not on file Legal Sex Male 9:49 PM EDT Gender Identity Not on file Sexual Orientation Not on file Plan of Treatment Not on file
--- OUTSIDE RECORDS SUMMARY | 2024-10-04 15:31 | XMS_ITS ---
Author Organization [facility] Address [address] [place] [address] Care Team Providers Care Conversion Worker Name Role Phone Natalya Puckett MD Primary Care Provid er Active Problems Problem Noted Date Diagnosed Date Age-related physical debility 11/29/2023 Need for assistance at home and no other household member able to render care 11/29/2023 Pericardial effusion 11/21/2023 Adjustment disorder with mixed anxiety and depre ssed mood 10/26/2023 Glaucoma suspect 09/06/2023 09/06/2023 Unstable angina 05/24/2023 NSTEMI (non-ST elevated myocardial infarction) 0 05/24/2023 Coronary artery disease of n ative artery of [place] heart with stable angina pectoris 05/08/2023 Assessment [...] stable today Start toprol 12.5 mg daily Current Oncology Plans No current plan information found. Past Plans No past plan information found. Radiation Treatments * No radiation treatments are documented for this patient in [facility]. Treatments may have been administered in another system. Lifetime Dose Tracking * Chemical Lifetime Dose Automatic Entry Manual Entr y Fluoro Time 71.54 minutes 0 minutes 71.54 minutes Air Kerma 5,578.92 mGy 0 mGy 5,578.92 mGy
--- OUTSIDE RECORDS SUMMARY | 2024-10-04 15:31 | XMS_ITS | Referral Summary ---
Author Organization [facility] Address [address] [place] [address] Care Team Providers Care Platform Power Technician Name Role Phone Natalya Puckett MD Primary Care Provid er Encounters Date Type Department Care Team Description 09/16/2024 Orders Only [facility] [address] [place] [address] Talia Florian MA Primary hypertension; Coronary artery disease of [place] artery of [place] heart with stable angina pectoris 09/16/2024 11:30 AM EDT Office Visit [facility] [address] [place] [address] Christopher Mason MD Mixed hyperlipidemia (Primary Dx); Coronary artery disease of [place] artery of [place] heart with stable angina pectoris; Primary hypertension; S/P drug eluting coronary stent placement from Last 3 Months Allergies Active Allergy Reactions Criticality Noted Date [...] 75 mg tabletIndications:C oronary artery disease of [place] artery of [place] heart with stable angina pectoris Take 1 tablet (75 mg) by mouth once daily as directed. 90 tablet 3 06/20/2024 Active ezetimibe (Zetia) 10 mg tabletIndications:M ixed hyperlipidemia Take 1 tablet (10 mg) by mouth once daily as directed. 90 tablet 3 06/20/2024 6 Active metoprolol succinate XL (Toprol-XL) 50 mg 24 hr tabletIndications:C oronary artery disease of [place] artery of [place] heart with stable angina pectoris Take 1 tablet (50 mg) by mouth once daily as directed. Do not crush or chew. 90 tablet 3 06/20/2024 6 Active rosuvastatin (Crestor) 20 mg tabletIndications:M ixed [...] 24 hr tabletIndications:C oronary artery disease of [place] artery of [place] heart with stable angina pectoris Take 1 tablet (120 mg) by mouth in the morning. Do not crush or chew. 90 tablet 3 06/20/2024 6 Active rosuvastatin (Crestor) 10 mg tabletIndications:H yperlipidemia, unspecified hyperlipidemia type Take 1 tablet (10 mg) by mouth in the morning. 90 tablet 3 07/03/2024 6 Active nitroglycerin (Nitrostat) 0.4 mg SL tabletIndications:C oronary artery disease of [place] artery of [place] heart with stable angina pectoris Place 1 [...] 12 hr tabletIndications:C oronary artery disease of [place] artery of [place] heart with stable angina pectoris Take 1 tablet (500 mg) by mouth two times daily. Do not crush, chew, or split. 180 tablet 3 09/16/2024 6 Active nitroglycerin (Nitrostat) 0.4 mg SL tabletIndications:C oronary artery disease of [place] artery of [place] heart with stable angina pectoris Place 1 [...] 12 hr tabletIndications:C oronary artery disease of [place] artery of [place] heart with stable angina pectoris Take 1 tablet (500 mg) by mouth two times daily. Do not crush, chew, or split. 180 tablet 3 09/16/2024 5 Discontinu ed(Reorder ) Active Problems Problem Noted [...] artery disease of n ative artery of [place] heart with stable angina pectoris 05/08/2023 Assessment [...] stable today Start toprol 12.5 mg daily Social History Tobacco Use Types Packs/Day Years Used Date Smoking Tobacco: Former Cigarettes 0.5 10 Cigars Smokeless Tobacco: Former Chew Tobacco Cessation:Counseling Given: Not Answered Alcohol Use Standard Drinks/Week Comments Never 0 (1 standard drink = 0.6 oz pur e alcohol) [facility] Utilities Answer Date Recorded In the past [...] place to sleep or slept in a nursing home (including now)? No 11/21/2023 Hunger Vital Sign [...] Description 10/21/2024 11:30 AM EDT Office Visit [facility] [address] [place] [address] Christopher Mason MD [address] [facility] [address] [place] [id number] Medical Devices Implanted Type Area Automotive Sales Professional Device Identifier Shelf Expiration Date Model / Serial / Lot Stent,Synergy Mr 3.50 X 20 - [id number] - [id number] Implanted:Qty: 1 on 05/30/2023 by Christopher Mason MD at [facility] Drug Eluting Stent [employer] [id number] 09/18/2024 [id number] / [id number] / [id number] Stent,Synergy Mr 2.25 X 24 - [id number] - [id number] Implanted:Qty: 1 on 05/30/2023 by Christopher Mason MD at [facility] Drug Eluting Stent [employer] [id number] 07/03/2024 [id number] / [id number] / [id number] Stent,Synergy Xd Mr 3.07l16ai - [id number] Implanted:Qty: 1 on 11/21/2023 by Christopher Mason MD at [facility] Drug Eluting Stent [employer] [id number] 08/28/2025 [id number] / / [id number] Stent,Synergy Mr 3.50 X 38 - [id number] Implanted:Qty: 1 on 11/21/2023 by Christopher Mason MD at [facility] Drug Eluting Stent [employer] [id number] 08/06/2025 [id number] / / [id number] Stent,Synergy Enrique,Jorge 4.0x24m - [id number] Implanted:Qty: 1 on 11/21/2023 by Christopher Mason MD at [facility] Stent [employer] [id number] 01/09/2025 [id number] / / [id number] Stent,Pk Papyrus,4.0/15 - [id number] Implanted:Qty: 1 on 11/21/2023 by Christopher Mason MD at [facility] Stent [employer] [id number] 09/20/2024 [id number] / / [id number] Stent,Pk Papyrus,4.5/15 - [id number] Implanted:Qty: 1 on 11/21/2023 by Christopher Mason MD at [facility] Stent [employer] [id number] 10/10/2024 [id number] / / [id number] Advance Directives Documents on File Type Date Recorded Patient Still Operator Batch Or Continuous Expl anation Power of Per Diem Interpreter 06/01/2023 8:44 AM Health Care * Full Code (Latest Code Status on File) Date Activated Date Inactivated Comments 11/21/2023 1:13 PM 11/24/2023 6:29 PM * Full Code Date Activated Date Inactivated Comments 05/24/2023 4:39 PM 05/31/2023 7:03 PM Care Teams Platform Power Technician Relationship Specialty Start Date End Date Natalya Puckett MD [address] PCP - General 05/30/23
--- OUTSIDE RECORDS SUMMARY | 2024-10-04 15:32 | XMS_ITS | Clinical Summary ---
Author Organization [facility] Address [address] [place] [address] Care Team Providers Care Range Scientist Name Role Phone None, . Primary Care Provider Unavailabl e Allergies Active Allergy Reactions Criticality Noted Date Comments Penicillins 02/23/2012 Medications lisinopril (PRINIVIL;ZESTRI L) 20 MG tablet Take 20 mg by mouth daily. Active clopidogrel (PLAVIX) 75 MG tablet Take 75 mg by mouth daily. Active metoprolol (TOPROL-XL) 25 MG XL tablet Take 25 mg by mouth daily. Active simvastatin (ZOCOR) 20 MG tablet Take 20 mg by mouth nightly. Active Social History Tobacco Use Types Packs/Day Years Used Date Smoking Tobacco: Former Cigarettes Q uit: 02/22/1991 Alcohol Use Standard Drinks/Week Comments No 0 (1 standard drink = 0.6 oz pur e alcohol) Sex and Gender Information Value Date Recorded Sex Assigned at Not on file Legal Sex Male 5:48 PM EST Gender Identity Not on file Sexual Orientation Not on file Last Filed Vital Signs Vital Sign Reading Time Taken Comments Blood Pressure 139/79 02/23/2012 8:54 AM EDT Pulse 70 02/23/2012 8:54 AM EDT Temperature 36.4 C (97.6 F) 02/23/2012 8:54 AM EDT Respiratory Rate 18 02/23/2012 8:54 AM EDT Oxygen Saturation - - Inhaled Oxygen Concentration - - Weight - - Height - - Body Mass Index - - Plan of Treatment Not on file Care Teams Range Scientist Relationship Specialty Start Date End Date None, . PCP - General 08/29/11
--- OUTSIDE RECORDS SUMMARY | 2024-10-04 15:44 | XMS_ITS | CCD ---
Author Organization [facility] Care Team Providers Care Community Reinvestment Act Officer Name Role Phone JESSICA HUNTER Admitting Unavailable ELSA, JESSICA Attending Unavailable ELSA, JESSICA Consulting Unavailable MISC, DR SMITH Primary Care Unavailable PAY, DR PRADO Attending Unavailable PAY, DR PRADO Admitting Unavailable WEST, DR FABI Kyle Consulting Unavailable MISC, DR SMITH Primary Care Unavailable PAY, DR PRADO Consulting Unavailable RUDY, DR GONZALEZ Consulting Unavailable MISC, DR SMITH Primary Care Unavailable HAY, DR TRACY Admitting Unavailable ELSA, JESSICA Consulting Unavailable HAY, DR TRACY Attending Unavailable JORDYN, FABI Consulting Unavailable VAIBHAV ROJAS Consulting Unavailable HOUSE, DO SHARMAINE Ferrell Attending Unavailable HOUSE, SHARMAINE Ferrell Primary Care Unavailable HOUSE, DO SHARMAINE Ferrell Attending Unavailable HOUSE, SHARMAINE Ferrell Primary Care Unavailable Allergies Allergy Classification Reported Allergen(s) Allergy Type Date of Onset Reaction(s) Facility (1 source) Oxytetracycline Drug Allergy 2 [facility] Repository (1 source) Penicillins Drug allergy (disorder) 3 [facility] Repository (1 source) Penicillin; Translations: [penicillin] Drug Allergy [facility] Repository Problems Active Problems Problem Classification [...] 05-28-2022 Episodic Other aftercare (1 source) Other detention (current) drug therapy; Translations: [OTH PRISON CURRENT DRUG THERAPY] Onset: 05-30-2022 Episodic Other injuries and conditions due to external causes (1 source) Unspecified injury of head, initial encounter; Translations: [UNSPECIFIED INJURY HEAD INITIAL ENC] Onset: 05-30-2022 Episodic Other upper respiratory infections (1 source) Acute upper respiratory infection, unspecified; Translations: [Acute upper respiratory infection, unspecified] Onset: 07-22-2024 Episodic Poisoning by nonmedicinal substances (1 source) [...] Onset: 11-15-2021 Episodic Other aftercare (1 source) custodial (current) use of antithrombotics/an tiplatelets; Translations: [ASSISTANT FACILITY MANAGER ANTITHROMBOT/ANTIP LATLETS] Onset: 11-17-2021 Episodic Unclassified (1 source) COUGH, UNSPECIFIED; Translations: [COUGH, UNSPECIFIED] Onset: 04-27-2022 Results Test Name Value Interpretation Reference [facility] ity Patient Handouton 06-20-2024 Patient Handout [id number] .00OTGTIFF [facility] Patient Provided Health Data on 06-20-2024 Patient Provided Health Data [id number] .00OTGTIFF [facility] CT CSPINE WO CONon CT CSPINE WO CON EXAMINATION: CT CSPINE [...] by: FABI COBB Date: 2022-05-28 20:53 Normal [facility] CT HEAD WO CONon 05-28-2022 CT HEAD [...] VAIBHAV ROJAS Date: 2022-05-28 21:17 Normal [facility] Covid-19 PCR (CVDTB)on 04-01 SARS-CoV-2 (COVID-19) RNA VINH+probe Ql (Unsp spec) Detected Critically abnormal NOT DETECTED [facility] Comment on above: Result Comment: This test is not yet az roved or cleared by the [place] FDA. When there are no FDA-approved or cleared tests available, and other criteria are met, FDA can make tests available under an emergency access mechanism called an Emergency Use Authorization (EUA). The EUA for this test is supported by the [place] of Health and Human Service's declaration that [...] used). Performed By: #### C VDTBH #### [facility] [address] [place] [address] Dr. James Green INFLUENZA A [facility] BEL[facility] Normal [facility] Comment on above: Result Comment: Negative for Flu A prote in angiten. Infection due to Flu A cannot be ruled out. Flu A angiten in the sample may be below the detection limit of the test. Performed By: #### I NFLUAB #### [facility] [address] [place] [address] Dr. James Green INFLUBNEG SEE BELOW Normal [facility] Comment on above: Result Comment: Negative for Flu B prote in antigen. Infection due to Flu B cannot be ruled out. Flu B antigen in the sample may be below the detection limit of the test. Performed By: #### I NFLUAB #### [facility] [address] [place] [address] Dr. James Green INFLUENZA A AG Negative Normal NEGATIVE SEE COMMENT [facility] Comment on above: Performed By: #### INFLUAB #### [facility] [address] [place] [address] Dr. James Green INFLUENZA B AG Negative Normal NEGATIVE SEE COMMENT [facility] Comment on above: Performed By: #### INFLUAB #### [facility] [address] [place], [place] [address] Dr. James Green XR CHEST 1 Von [...] FABI HEAD Date: 2022-04-27 07:47 Normal [facility] Encounters Encounter Date Encounter Type Care Provider Facility Start: 07-22-2024 End: 07-22-2024 ambulatory DO SHARMAINE GIL Facility:[facility] Start: 06-19-2024 ambulatory DO SHARMAINE GIL Faci lity:[facility] Start: 05-28-2022 End: 05-28-[address] DOCTOR HERNANDEZ Facility:[facility] Start: 04-27-2022 End: 04-27-[address] JOHAN ROSEN Facility:[facility] Start: 11-15-2021 End: 11-15-2021 ambulatory JESSICA HUNTER Facility:[facility] Payers Date Payer Category Payer Private Health Insurance [id number] 2019 Unknown [id number] 1961 Medicare [id number] 1945 Unknown [id number] 2.16.84 [id number] 1945 Unknown [id number] 2.16.84 [id number] 1945 Unknown [id number] 2.16.84 [id number] 1945 Unknown [id number] 2.16.8 [id number] 1945 Unknown [id number] 2.16.8 [id number] Summary Purpose Family History No Family History Records FoundNo Family History Records Found Advance Directives No Advanced Directives Records FoundNo Advanced Directives Records Found Additional Source Comments (unrecognized sect ion and content) No Status Records FoundNo Status Records Found INFORMATION SOURCE (unrecogn ized section and content) DATE CREATED AUTHOR 05/30/2022 [facility] DATE CREATED AUTHOR AUTHOR'S ORGANIZ ATION 07/23/2024 [facility] FOR RECORDS PERTAINING TO PATIENTS [...] BE BASED ON THE PRIMARY CLINICAL RECORDS. [facility]. provides no warranty or guarantee of the accuracy or completeness of information in this document.
--- NOTE | 2024-10-04 15:54 | XR_ITS ---
The [address] [address] Patient Name: FLACO ACOSTA MRN: [id number] date: 1945 Sex: M Assigned Patient Location: ED.MAIN Current Patient Location: ED.MAIN Accession/Order Number: [id number] Exam Date: 10/04/2024 16:43 Report Date: 10/04/2024 16:47 At the request of: ANGUS MCCAIN NP Procedure: XR hip LT 2V w/ pelvis Plain film chest Single view HISTORY: Acute left-sided weakness. Multiple falls. Left hip pain COMPARISON: CT chest 05/23/2023 FINDINGS: SUPPORT DEVICES: None POSTSURGICAL CHANGES: None HEART: Mild cardiomegaly PULMONARY SHALOM: Hilar vascular prominence MEDIASTINUM: Unremarkable LUNGS AND PLEURA: No acute lung process, pleural effusion or pneumothorax identified. Minor interstitial changes BONY STRUCTURES: Intact ADDITIONAL FINDINGS None XR/XR chest 1V IMPRESSION: Mild cardiomegaly and hilar vascular congestion. 2 views left hip a single view pelvis No acute displaced fracture. Adequate bony alignment. Minor degenerative changes. Unremarkable soft tissues. IMPRESSION: No acute displaced fracture. Impression dictated by: James Oseguera M.D. 10/04/2024 4:47 PM Dictation Location: [employer] Electronically authenticated by: [id number] Y Date: 10/04/2024 16:47
--- NOTE | 2024-10-04 15:54 | XR_ITS ---
The [address] [address] Patient Name: FLACO ACOSTA MRN: [facility]:[id number] date: 1945 Sex: M Assigned Patient Location: ED.MAIN Current Patient Location: ED.MAIN Accession/Order Number: [id number] Exam Date: 10/04/2024 16:42 Report Date: 10/04/2024 16:43 At the request of: ANGUS MCCAIN NP Procedure: XR femur LT 2V 2 views leftfemur plain film COMPARISON: None HISTORY: Multiple falls. Left hip pain ACUTE FINDINGS: None DEGENERATIVE CHANGE: Unremarkable SOFT TISSUE FINDINGS: Atherosclerosis JOINT EFFUSION: None POSTOP CHANGES: None BONE MINERALIZATION: Adequate XR/XR femur LT 2V IMPRESSION: No acute bony findings. Impression dictated by: James Oseguera M.D. 10/04/2024 4:43 PM Dictation Location: [facility] Electronically authenticated by: [id number] Y Date: 10/04/2024 16:43
--- NOTE | 2024-10-04 15:54 | ECG_ITS ---
The [facility] Test Date: 2024-10-04 Pat Name: FLACO ACOSTA Department: Room: - Gender: Male Septic Technician: : 1945 Requested By: [id number] Order Number: [id number] Reading MD: ZAC RUSSO M.D. Measurements Intervals [place] Rate: 52 P: 38 WI: 252 QRS: 68 QRSD: 94 T: 61 QT: 444 QTc: 424 Interpretive Statements 1100 Sinus rhythm 2231 First degree AV block 9150 abnormal ECG Compared to ECG 05/23/2023 14:57:44 First degree AV block now present ST (T wave) deviation no longer present Electronically Signed On 10-04-2024 18:28:49 EDT by ZAC RUSSO M.D.
--- NOTE | 2024-10-04 15:54 | CT_ITS ---
The [address] [address] Patient Name: FLACO ACOSTA MRN: [facility]:[id number] date: 1945 Sex: M Assigned Patient Location: ED.MAIN Current Patient Location: ED.MAIN Accession/Order Number: [id number] Exam Date: 10/04/2024 16:39 Report Date: 10/04/2024 16:41 At the request of: ANGUS MCCAIN NP Procedure: CT head/brain wo con Unenhanced head CT TECHNIQUE: Contiguous axial imaging of the head. The CT exam was performed using one or more the following dose reduction techniques: Automated exposure control, adjustment of the MA and/or Kv according to patient size, or use of the iterative reconstruction technique. COMPARISON: 05/28/2022 HISTORY: Acute left-sided weakness. Multiple falls. Left hip pain VENTRICLES: Within normal limits ATROPHY: Similar atrophy BRAIN PARENCHYMA: Decreased density of the white matter is most consistent with chronic small vessel disease. HEMORRHAGE: None HERNIATION: No mass effect or herniation INFARCTION: No recent vascular distribution infarction is seen. EXTRA-AXIAL FLUID COLLECTIONS None MIDBRAIN: Unremarkable KACY: Unremarkable MEDULLA: Unremarkable SINUSES: Unremarkable ORBITS: Grossly unremarkable MASTOIDS: Unremarkable BONY STRUCTURES Intact ADDITIONAL FINDINGS: CT/CT head/brain wo con IMPRESSION: No acute findings. Impression dictated by: James Oseguera M.D. 10/04/2024 4:41 PM Dictation Location: [place] [address] Electronically authenticated by: [id number] Y Date: 10/04/2024 16:41
--- NOTE | 2024-10-04 15:54 | XR_ITS ---
The [address] [address] Patient Name: FLACO ACOSTA MRN: [id number] date: 1945 Sex: M Assigned Patient Location: ED.MAIN Current Patient Location: ED.MAIN Accession/Order Number: [id number] Exam Date: 10/04/2024 16:43 Report Date: 10/04/2024 16:47 At the request of: ANGUS MCCAIN NP Procedure: XR hip LT 2V w/ pelvis Plain film chest Single view HISTORY: Acute left-sided weakness. Multiple falls. Left hip pain COMPARISON: CT chest 05/23/2023 FINDINGS: SUPPORT DEVICES: None POSTSURGICAL CHANGES: None HEART: Mild cardiomegaly PULMONARY SHALOM: Hilar vascular prominence MEDIASTINUM: Unremarkable LUNGS AND PLEURA: No acute lung process, pleural effusion or pneumothorax identified. Minor interstitial changes BONY STRUCTURES: Intact ADDITIONAL FINDINGS None XR/XR hip LT 2V w/ pelvis IMPRESSION: Mild cardiomegaly and hilar vascular congestion. 2 views left hip a single view pelvis No acute displaced fracture. Adequate bony alignment. Minor degenerative changes. Unremarkable soft tissues. IMPRESSION: No acute displaced fracture. Impression dictated by: James Oseguera M.D. 10/04/2024 4:47 PM Dictation Location: [facility] Electronically authenticated by: [id number] Y Date: 10/04/2024 16:47
--- NOTE | 2024-10-04 16:12 | ED.GENADUL1 ---
Documented by User: Sandy Camara NP 10/04/24 17:13 HPI HPI - General Adult General Chief complaint: Weakness Stated complaint: FALL 09/25, PAIN ON L SIDE, WEAKNESS Time Seen by Provider: 10/04/24 15:37 Mode of arrival: walk-in Limitations: language barrier History of Present Illness HPI narrative: The patient is an 78-year-old male who presents to the emergency department today for evaluation concerns for multiple falls and generalized weakness. Patient is here with his neighbor who endorses he has had 4 falls in the past week the first being on 09/25 at which time since then he reported pain to the left hip. She states he has a remote history of CVA with some residual left upper and lower extremity weakness. The patient endorses he has fallen multiple times due to bumping into things or missing a chair. He is unsure if he is hit his head. He denies any LOC. No neck/back pain, chest pain, shortness of breath. Has any headaches or dizziness. He denies any injuries to extremities other than pain to his left hip. No paresthesias or loss of movement to his extremities. He denies any concerns with bowel or bladder function. Likely he is on aspirin and Plavix due to history of coronary stenting. He is otherwise not on any anticoagulant medications. Related Data Home Medications ?Medication ?Instructions ?Recorded ?Confirmed calcium 600 mg (as 1 tab PO DAILY 04/30/23 10/04/24 carbonate)-vitamin D3 10 mcg (400 unit) tablet (Calcium 600 + D(3)) clopidogrel 75 mg tablet 75 mg PO DAILY 04/30/23 10/04/24 cyanocobalamin (vitamin B-12) 1,000 mcg PO DAILY 04/30/23 10/04/24 1,000 mcg capsule spironolactone 25 mg tablet 25 mg PO DAILY 04/30/23 10/04/24 (Aldactone) vit C 250 mg-vit E 90 mg-zinc 40 1 tab PO BID 04/30/23 05/24/23 mg-copper 1 [id number] capsule (PreserVision AREDS-2) isosorbide mononitrate 30 mg 120 mg PO QDAY 05/24/23 10/04/24 tablet,extended release 24 hr metoprolol succinate 25 mg 50 mg PO QDAY 05/24/23 10/04/24 tablet,extended release 24 hr oxybutynin chloride 5 mg tablet 5 mg PO BID 05/24/23 10/04/24 aspirin 81 mg capsule 81 mg PO DAILY 10/04/24 10/04/24 duloxetine 20 mg capsule,delayed 20 mg PO DAILY 10/04/24 10/04/24 release sprinkle ezetimibe 10 mg tablet 10 mg PO DAILY 10/04/24 10/04/24 losartan 100 mg tablet 100 mg PO .daily 10/04/24 10/04/24 nitroglycerin 0.4 mg sublingual 0.4 mg sublingual Q5M PRN chest 10/04/24 10/04/24 tablet pain ranolazine 500 mg tablet,extended 500 mg PO BID 10/04/24 10/04/24 release,12 hr rosuvastatin 10 mg tablet 20 mg PO .at night 10/04/24 10/04/24 rosuvastatin 20 mg tablet mg 10/04/24 Allergies Allergy/AdvReac Type Severity Reaction Status Date / Time Penicillins Allergy Hives Verified 05/23/23 14:52 Opioid HPI Opioid Management Most Recent Opioid Data: Last Pain Scale 0 05/24/23, 10:52 Last ORT Total Score 1 Today, 18:58 Last ORT Risk Category Low Risk Today, 18:58 Review of Systems ROS Status of ROS 10 or more systems reviewed and unremarkable except as noted in history and below [facility] Medical History (Updated 10/04/24 @ 19:07 by Bob Delacruz MD) Stage 3a chronic kidney disease (CKD) ?N18.31 - Chronic kidney disease, stage 3a (ICD-10) Ischemic cardiomyopathy ?I25.5 - Ischemic cardiomyopathy (ICD-10) CAD (coronary artery disease) ?I25.10 - Atherosclerotic heart disease of [place] coronary artery without angina pectoris (ICD-10) Hypertension ?I10 - Essential (primary) hypertension (ICD-10) Symptomatic bradycardia ?R00.1 - Bradycardia, unspecified (ICD-10) Prostate cancer ?C61 - Malignant neoplasm of prostate (ICD-10) Left-sided weakness ?R53.1 - Weakness (ICD-10) Stroke ?I63.9 - Cerebral infarction, unspecified (ICD-10) Surgical History (Updated 05/01/23 @ 03:04 by Adrianne Rios) H/O hernia repair ?Z98.890 - Other specified postprocedural states (ICD-10) ?Z87.19 - Personal history of other diseases of the digestive system (ICD-10) History of appendectomy ?Z90.49 - Acquired absence of other specified parts of digestive tract (ICD-10) Hx of tonsillectomy ?Z90.89 - Acquired absence of other organs (ICD-10) H/O heart artery stent ?Z95.5 - Presence of coronary angioplasty implant and graft (ICD-10) Social History (Updated 10/04/24 @ 18:47 by Ning Oneil) Within the past year, how often did you have a drink containing alcohol: never Score interpretation: A score less than 4 is consistent with normal alcohol consumption. 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 Highest level of school completed/degree received: high school graduate Little interest or pleasure in doing things: several days Feeling down, depressed, or hopeless: several days Exam Narrative Exam Narrative: Constituational: Awake/ alert, no apparent distress, well hydrated HENMT: normocephalic, external ears normal, moist oral mucous membranes and oropharynx normal Eyes: EOMI and conjunctivae normal Neck: ROM intact, nontender Chest: inspection of chest normal Respiratory: Normal respiratory effort, clear to auscultation bilaterally Cardio: regular rate and regular rhythm GI: soft to palpation and non-tender Back: nontender MSK: + With palpation over anterior aspect of L hip without surrounding edema, ecchymosis, crepitus, deformity, ROM intact, no rotation or shortening of the affected extremity, leg and knee stable, +NVI Skin: no rashes or petechiae Neuro: +3/5 strength to L leg, 4/5 to LUE, a/ox4 Psych: mental status grossly normal Constitutional Vital Signs, click to edit/add: Last Vital Signs Temp 97.8 F 10/04/24 18:58 Pulse 52 L 10/04/24 18:58 Resp 18 10/04/24 18:58 BP 170/72 H 10/04/24 18:58 Pulse Ox 95 10/04/24 18:58 O2 Del Method Room Air 10/04/24 18:58 Course Vital Signs Vital signs: Vital Signs Temperature 98.2 F 10/04/24 15:26 Pulse Rate 53 L 10/04/24 15:26 Respiratory Rate 18 10/04/24 15:26 Blood Pressure 194/80 H 10/04/24 15:26 Pulse Oximetry 98 10/04/24 15:26 Oxygen Delivery Method Room Air 10/04/24 15:26 Temperature 97.8 F 10/04/24 18:58 Pulse Rate 52 L 10/04/24 18:58 Respiratory Rate 18 10/04/24 18:58 Blood Pressure 170/72 H 10/04/24 18:58 Pulse Oximetry 95 10/04/24 18:58 Oxygen Delivery Method Room Air 10/04/24 18:58 Medical Decision Making MDM Narrative Medical decision making narrative: Nontoxic-appearing 78-year-old male who presented to the emergency department today for evaluation of concerns for left hip pain and reported multiple falls. Initial examination vital signs overall stable. He does not appear to be exhibiting any ischemic symptoms and does overall appear euvolemic on exam. There is noted to be pain to the anterior left hip otherwise no concerning neurovascular motor findings on exam. Left hip and pelvis and femur are without critical findings. Chest x-ray stable. CT imaging of head additionally stable. Labs stable and showed no significant leukocytosis, anemia, thrombocytopenia. Electrolytes including renal and hepatic function stable. Normal coags. Is pending. Evaluated multiple times while in the emergency department and had no significant changes in condition. Clinical impression multiple falls in the setting of generalized weakness and left hip pain. Discussed patient's condition with Dr. Delacruz (hospitalist) [id number] -> accepts patient for admission. Discussed the above findings and recommendations with the patient and his neighbor who was present at the bedside. All are agreeable to plan for the patient to be mated for further care of the above. Medical Records Medical records reviewed: Yes I reviewed the patient's medical records Lab Data Lab results reviewed: Yes I reviewed the patient's lab results Labs: Lab Results 10/04/24 Range/Units 16:17 WBC 6.9 (4.0-11.0) 10^3/uL RBC 3.64 L (4.70-6.10) 10^6/uL Hgb 10.7 L (14.0-18.0) g/dL Hct 31.8 L (42.0-54.0) % MCV 87.4 (80.0-94.0) fL MCH 29.4 (25.9-34.0) pg MCHC 33.6 (29.9-35.2) g/dL RDW 15.1 H (11.0-15.0) % Plt Count 204 (150-450) 10^3/uL MPV 10.6 (9.5-13.5) fL Neut % (Auto) 63.9 (43.0-75.0) % Lymph % (Auto) 22.7 (20.5-60.0) % [place] % (Auto) 7.8 (1.7-12.0) % Eos % (Auto) 4.9 (0.9-7.0) % Baso % (Auto) 0.4 (0.2-2.0) % Neut # (Auto) 4.4 (1.4-6.5) 10^3/uL Lymph # (Auto) 1.6 (1.2-3.8) 10^3/uL [place] # (Auto) 0.5 (0.3-0.8) 10^3/uL Eos # (Auto) 0.3 (0.0-0.7) 10^3/uL Baso # (Auto) 0.0 (0.0-0.1) 10^3/uL Abs Immat Gran (auto) 0.02 (0.00-0.03) 10^3/uL Imm/Tot Granulo (auto) 0.3 (0.0-0.5) % PT 10.8 (9.0-11.6) sec INR 1.02 Sodium 138 (136-145) mmol/L Potassium 4.3 (3.5-5.1) mmol/L Chloride 102 (98-107) mmol/L Carbon Dioxide 26.4 (21.0-32.0) mmol/L Anion Gap 13.9 BUN 25.0 H (7.0-18.0) mg/dL Creatinine 1.18 (0.70-1.30) mg/dL Est GFR ( Amer) >60 (>=60 mL/min/1.73m^2) Est GFR (Non-Af Amer) 59 L (>=60 mL/min/1.73m^2) BUN/Creatinine Ratio 21.2 Glucose 101 (74-106) mg/dL Calcium 9.3 (8.5-10.1) mg/dL Total Bilirubin 0.5 (0.2-1.0) mg/dL AST 32 (15-37) U/L ALT 20 (16-63) U/L Alkaline Phosphatase 70 (46-116) U/L Total Creatine Kinase 88 (39-308) U/L Myoglobin 73 (16-96) ng/mL Troponin I High Sens 14.0 (4.0-76.1) pg/mL NT-Pro-B Natriuret Pep 374.0 (<=1800.0) pg/mL Total Protein 7.4 (6.4-8.2) g/dL Albumin 3.4 (3.4-5.0) g/dL Globulin 4.0 g/dL Albumin/Globulin Ratio 0.9 TSH 2.648 (0.358-3.740) uIU/mL Thyroxine (T4) 8.20 (4.50-12.10) ug/dL Imaging Data Chest x-ray: Attestation: I have reviewed the pertinent imaging results. Radiologist's impression: ITS Impressions Chest X-Ray 10/04/24 15:54 IMPRESSION: Mild cardiomegaly and hilar vascular congestion. 2 views left hip a single view pelvis No acute displaced fracture. Adequate bony alignment. Minor degenerative changes. Unremarkable soft tissues. IMPRESSION: No acute displaced fracture. Impression dictated by: James Oseguera M.D. 10/04/2024 4:47 PM Dictation Location: [facility] Electronically authenticated by: [id number] Y Date: 10/04/2024 16:47 Femur X-Ray 10/04/24 15:54 IMPRESSION: No acute bony findings. Impression dictated by: James Oseguera M.D. 10/04/2024 4:43 PM Dictation Location: [facility] Electronically authenticated by: [id number] Y Date: 10/04/2024 16:[address] 10/04/24 15:54 IMPRESSION: No acute findings. Impression dictated by: James Oseguera M.D. 10/04/2024 4:41 PM Dictation Location: [facility] Electronically authenticated by: [id number] Y Date: 10/04/2024 16:41 Hip/Pelvis X-Ray 10/04/24 15:54 IMPRESSION: Mild cardiomegaly and hilar vascular congestion. 2 views left hip a single view pelvis No acute displaced fracture. Adequate bony alignment. Minor degenerative changes. Unremarkable soft tissues. IMPRESSION: No acute displaced fracture. Impression dictated by: Jaems Oseguera M.D. 10/04/2024 4:47 PM Dictation Location: [facility] Electronically authenticated by: [id number] Y Date: 10/04/2024 16:47 CT scan - head: Attestation: I have reviewed the pertinent imaging results. Radiologist's impression: ITS Impressions Chest X-Ray 10/04/24 15:54 IMPRESSION: Mild cardiomegaly and hilar vascular congestion. 2 views left hip a single view pelvis No acute displaced fracture. Adequate bony alignment. Minor degenerative changes. Unremarkable soft tissues. IMPRESSION: No acute displaced fracture. Impression dictated by: James Oseguera M.D. 10/04/2024 4:47 PM Dictation Location: [facility] Electronically authenticated by: [id number] Y Date: 10/04/2024 16:47 Femur X-Ray 10/04/24 15:54 IMPRESSION: No acute bony findings. Impression dictated by: James Oseguera M.D. 10/04/2024 4:43 PM Dictation Location: [facility] Electronically authenticated by: [id number] Y Date: 10/04/2024 16:[address] 10/04/24 15:54 IMPRESSION: No acute findings. Impression dictated by: James Oseguera M.D. 10/04/2024 4:41 PM Dictation Location: [facility] Electronically authenticated by: [id number] Y Date: 10/04/2024 16:41 Hip/Pelvis X-Ray 10/04/24 15:54 IMPRESSION: Mild cardiomegaly and hilar vascular congestion. 2 views left hip a single view pelvis No acute displaced fracture. Adequate bony alignment. Minor degenerative changes. Unremarkable soft tissues. IMPRESSION: No acute displaced fracture. Impression dictated by: James Oseguera M.D. 10/04/2024 4:47 PM Dictation Location: [facility] Electronically authenticated by: [id number] Y Date: 10/04/2024 16:47 XR left hip/ pelvis: Attestation: I have reviewed the pertinent imaging results. Radiologist's impression: ITS Impressions Chest X-Ray 10/04/24 15:54 IMPRESSION: Mild cardiomegaly and hilar vascular congestion. 2 views left hip a single view pelvis No acute displaced fracture. Adequate bony alignment. Minor degenerative changes. Unremarkable soft tissues. IMPRESSION: No acute displaced fracture. Impression dictated by: James Oseguera M.D. 10/04/2024 4:47 PM Dictation Location: [facility] Electronically authenticated by: [id number] Y Date: 10/04/2024 16:47 Femur X-Ray 10/04/24 15:54 IMPRESSION: No acute bony findings. Impression dictated by: James Oseguera M.D. 10/04/2024 4:43 PM Dictation Location: [facility] Electronically authenticated by: [id number] Y Date: 10/04/2024 16:[address] 10/04/24 15:54 IMPRESSION: No acute findings. Impression dictated by: James Oseguera M.D. 10/04/2024 4:41 PM Dictation Location: [facility] Electronically authenticated by: [id number] Y Date: 10/04/2024 16:41 Hip/Pelvis X-Ray 10/04/24 15:54 IMPRESSION: Mild cardiomegaly and hilar vascular congestion. 2 views left hip a single view pelvis No acute displaced fracture. Adequate bony alignment. Minor degenerative changes. Unremarkable soft tissues. IMPRESSION: No acute displaced fracture. Impression dictated by: James Oseguera M.D. 10/04/2024 4:47 PM Dictation Location: [facility] Electronically authenticated by: [id number] Y Date: 10/04/2024 16:47 ECG Data Attestation: I personally reviewed and interpreted this ECG as follows: (EKG shows SB with HR 52, noted first-degree AV block otherwise no acute/ischemic changes) Discharge Plan Discharge Chief Complaint: Weakness Clinical Impression: Falls frequently Patient Disposition: Admitted As Inpatient Condition: Fair Discharge Date/Time: 10/04/24 18:30 Documented by User: James Suazo MD 10/04/24 20:03 HPI HPI - General Adult General Chief complaint: Weakness Stated complaint: FALL 09/25, PAIN ON L SIDE, WEAKNESS Time Seen by Provider: 10/04/24 15:37 Related Data Home Medications ?Medication ?Instructions ?Recorded ?Confirmed calcium 600 mg (as 1 tab PO DAILY 04/30/23 10/04/24 carbonate)-vitamin D3 10 mcg (400 unit) tablet (Calcium 600 + D(3)) clopidogrel 75 mg tablet 75 mg PO DAILY 04/30/23 10/04/24 cyanocobalamin (vitamin B-12) 1,000 mcg PO DAILY 04/30/23 10/04/24 1,000 mcg capsule spironolactone 25 mg tablet 25 mg PO DAILY 04/30/23 10/04/24 (Aldactone) vit C 250 mg-vit E 90 mg-zinc 40 1 tab PO BID 04/30/23 05/24/23 mg-copper 1 [id number] capsule (PreserVision AREDS-2) isosorbide mononitrate 30 mg 120 mg PO QDAY 05/24/23 10/04/24 tablet,extended release 24 hr metoprolol succinate 25 mg 50 mg PO QDAY 05/24/23 10/04/24 tablet,extended release 24 hr oxybutynin chloride 5 mg tablet 5 mg PO BID 05/24/23 10/04/24 aspirin 81 mg capsule 81 mg PO DAILY 10/04/24 10/04/24 duloxetine 20 mg capsule,delayed 20 mg PO DAILY 10/04/24 10/04/24 release sprinkle ezetimibe 10 mg tablet 10 mg PO DAILY 10/04/24 10/04/24 losartan 100 mg tablet 100 mg PO .daily 10/04/24 10/04/24 nitroglycerin 0.4 mg sublingual 0.4 mg sublingual Q5M PRN chest 10/04/24 10/04/24 tablet pain ranolazine 500 mg tablet,extended 500 mg PO BID 06/06/25 06/06/25 release,12 hr rosuvastatin 10 mg tablet 20 mg PO .at night 10/04/24 10/04/24 rosuvastatin 20 mg tablet mg 10/04/24 Allergies Allergy/AdvReac Type Severity Reaction Status Date / Time Penicillins Allergy Hives Verified 05/23/23 14:52 Opioid HPI Opioid Management Most Recent Opioid Data: Last Pain Scale 0 05/24/23, 10:52 Last ORT Total Score 1 Today, 18:58 Last ORT Risk Category Low Risk Today, 18:58 PFSH PFSH Medical History (Updated 10/04/24 @ 19:07 by Bob Delacruz MD) Stage 3a chronic kidney disease (CKD) ?N18.31 - Chronic kidney disease, stage 3a (ICD-10) Ischemic cardiomyopathy ?I25.5 - Ischemic cardiomyopathy (ICD-10) CAD (coronary artery disease) ?I25.10 - Atherosclerotic heart disease of [place] coronary artery without angina pectoris (ICD-10) Hypertension ?I10 - Essential (primary) hypertension (ICD-10) Symptomatic bradycardia ?R00.1 - Bradycardia, unspecified (ICD-10) Prostate cancer ?C61 - Malignant neoplasm of prostate (ICD-10) Left-sided weakness ?R53.1 - Weakness (ICD-10) Stroke ?I63.9 - Cerebral infarction, unspecified (ICD-10) Surgical History (Updated 05/01/23 @ 03:04 by Adrianne Rios) H/O hernia repair ?Z98.890 - Other specified postprocedural states (ICD-10) ?Z87.19 - Personal history of other diseases of the digestive system (ICD-10) History of appendectomy ?Z90.49 - Acquired absence of other specified parts of digestive tract (ICD-10) Hx of tonsillectomy ?Z90.89 - Acquired absence of other organs (ICD-10) H/O heart artery stent ?Z95.5 - Presence of coronary angioplasty implant and graft (ICD-10) Social History (Updated 10/04/24 @ 18:47 by Ning Oneil) Within the past year, how often did you have a drink containing alcohol: never Score interpretation: A score less than 4 is consistent with normal alcohol consumption. 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 Highest level of school completed/degree received: high school graduate Little interest or pleasure in doing things: several days Feeling down, depressed, or hopeless: several days Exam Constitutional Vital Signs, click to edit/add: Last Vital Signs Temp 97.8 F 10/04/24 18:58 Pulse 52 L 10/04/24 18:58 Resp 18 10/04/24 18:58 BP 170/72 H 10/04/24 18:58 Pulse Ox 95 10/04/24 18:58 O2 Del Method Room Air 10/04/24 18:58 Course Vital Signs Vital signs: Vital Signs Temperature 98.2 F 10/04/24 15:26 Pulse Rate 53 L 10/04/24 15:26 Respiratory Rate 18 10/04/24 15:26 Blood Pressure 194/80 H 10/04/24 15:26 Pulse Oximetry 98 10/04/24 15:26 Oxygen Delivery Method Room Air 10/04/24 15:26 Temperature 97.8 F 10/04/24 18:58 Pulse Rate 52 L 10/04/24 18:58 Respiratory Rate 18 10/04/24 18:58 Blood Pressure 170/72 H 10/04/24 18:58 Pulse Oximetry 95 10/04/24 18:58 Oxygen Delivery Method Room Air 10/04/24 18:58 Medical Decision Making MDM Narrative Medical decision making narrative: Nontoxic-appearing 78-year-old male who presented to the emergency department today for evaluation of concerns for left hip pain and reported multiple falls. Initial examination vital signs overall stable. He does not appear to be exhibiting any ischemic symptoms and does overall appear euvolemic on exam. There is noted to be pain to the anterior left hip otherwise no concerning neurovascular motor findings on exam. Left hip and pelvis and femur are without critical findings. Chest x-ray stable. CT imaging of head additionally stable. Labs stable and showed no significant leukocytosis, anemia, thrombocytopenia. Electrolytes including renal and hepatic function stable. Normal coags. Is pending. Evaluated multiple times while in the emergency department and had no significant changes in condition. Clinical impression multiple falls in the setting of generalized weakness and left hip pain. Discussed patient's condition with Dr. Delacruz (hospitalist) [id number] -> accepts patient for admission. Discussed the above findings and recommendations with the patient and his neighbor who was present at the bedside. All are agreeable to plan for the patient to be mated for further care of the above. I, Dr Suazo, have reviewed the above progress note and course of action in the ER; agree with the above. I have personally gone over history and physical, and discussed disposition and treatment plan with the PA. Lab Data Labs: Lab Results 10/04/24 Range/Units 16:17 WBC 6.9 (4.0-11.0) 10^3/uL RBC 3.64 L (4.70-6.10) 10^6/uL Hgb 10.7 L (14.0-18.0) g/dL Hct 31.8 L (42.0-54.0) % MCV 87.4 (80.0-94.0) fL MCH 29.4 (25.9-34.0) pg MCHC 33.6 (29.9-35.2) g/dL RDW 15.1 H (11.0-15.0) % Plt Count 204 (150-450) 10^3/uL MPV 10.6 (9.5-13.5) fL Neut % (Auto) 63.9 (43.0-75.0) % Lymph % (Auto) 22.7 (20.5-60.0) % [place] % (Auto) 7.8 (1.7-12.0) % Eos % (Auto) 4.9 (0.9-7.0) % Baso % (Auto) 0.4 (0.2-2.0) % Neut # (Auto) 4.4 (1.4-6.5) 10^3/uL Lymph # (Auto) 1.6 (1.2-3.8) 10^3/uL [place] # (Auto) 0.5 (0.3-0.8) 10^3/uL Eos # (Auto) 0.3 (0.0-0.7) 10^3/uL Baso # (Auto) 0.0 (0.0-0.1) 10^3/uL Abs Immat Gran (auto) 0.02 (0.00-0.03) 10^3/uL Imm/Tot Granulo (auto) 0.3 (0.0-0.5) % PT 10.8 (9.0-11.6) sec INR 1.02 Sodium 138 (136-145) mmol/L Potassium 4.3 (3.5-5.1) mmol/L Chloride 102 (98-107) mmol/L Carbon Dioxide 26.4 (21.0-32.0) mmol/L Anion Gap 13.9 BUN 25.0 H (7.0-18.0) mg/dL Creatinine 1.18 (0.70-1.30) mg/dL Est GFR ( Amer) >60 (>=60 mL/min/1.73m^2) Est GFR (Non-Af Amer) 59 L (>=60 mL/min/1.73m^2) BUN/Creatinine Ratio 21.2 Glucose 101 (74-106) mg/dL Calcium 9.3 (8.5-10.1) mg/dL Total Bilirubin 0.5 (0.2-1.0) mg/dL AST 32 (15-37) U/L ALT 20 (16-63) U/L Alkaline Phosphatase 70 (46-116) U/L Total Creatine Kinase 88 (39-308) U/L Myoglobin 73 (16-96) ng/mL Troponin I High Sens 14.0 (4.0-76.1) pg/mL NT-Pro-B Natriuret Pep 374.0 (<=1800.0) pg/mL Total Protein 7.4 (6.4-8.2) g/dL Albumin 3.4 (3.4-5.0) g/dL Globulin 4.0 g/dL Albumin/Globulin Ratio 0.9 TSH 2.648 (0.358-3.740) uIU/mL Thyroxine (T4) 8.20 (4.50-12.10) ug/dL Imaging Data Chest x-ray: Radiologist's impression: ITS Impressions Chest X-Ray 10/04/24 15:54 IMPRESSION: Mild cardiomegaly and hilar vascular congestion. 2 views left hip a single view pelvis No acute displaced fracture. Adequate bony alignment. Minor degenerative changes. Unremarkable soft tissues. IMPRESSION: No acute displaced fracture. Impression dictated by: James Oseguera M.D. 10/04/2024 4:47 PM Dictation Location: [place] [address] Electronically authenticated by: [id number] Y Date: 10/04/2024 16:47 Femur X-Ray 10/04/24 15:54 IMPRESSION: No acute bony findings. Impression dictated by: James Oseguera M.D. 10/04/2024 4:43 PM Dictation Location: [facility] Electronically authenticated by: [id number] Y Date: 10/04/2024 16:[address] 10/04/24 15:54 IMPRESSION: No acute findings. Impression dictated by: James Oseguera M.D. 10/04/2024 4:41 PM Dictation Location: [facility] Electronically authenticated by: [id number] Y Date: 10/04/2024 16:41 Hip/Pelvis X-Ray 10/04/24 15:54 IMPRESSION: Mild cardiomegaly and hilar vascular congestion. 2 views left hip a single view pelvis No acute displaced fracture. Adequate bony alignment. Minor degenerative changes. Unremarkable soft tissues. IMPRESSION: No acute displaced fracture. Impression dictated by: James Oseguera M.D. 10/04/2024 4:47 PM Dictation Location: [facility] Electronically authenticated by: [id number] Y Date: 10/04/2024 16:47 CT scan - head: Radiologist's impression: ITS Impressions Chest X-Ray 10/04/24 15:54 IMPRESSION: Mild cardiomegaly and hilar vascular congestion. 2 views left hip a single view pelvis No acute displaced fracture. Adequate bony alignment. Minor degenerative changes. Unremarkable soft tissues. IMPRESSION: No acute displaced fracture. Impression dictated by: James Oseguera M.D. 10/04/2024 4:47 PM Dictation Location: [facility] Electronically authenticated by: [id number] Y Date: 10/04/2024 16:47 Femur X-Ray 10/04/24 15:54 IMPRESSION: No acute bony findings. Impression dictated by: James Oseguera M.D. 10/04/2024 4:43 PM Dictation Location: [facility] Electronically authenticated by: [id number] Y Date: 10/04/2024 16:[address] 10/04/24 15:54 IMPRESSION: No acute findings. Impression dictated by: James Oseguera M.D. 10/04/2024 4:41 PM Dictation Location: [facility] Electronically authenticated by: [id number] Y Date: 10/04/2024 16:41 Hip/Pelvis X-Ray 10/04/24 15:54 IMPRESSION: Mild cardiomegaly and hilar vascular congestion. 2 views left hip a single view pelvis No acute displaced fracture. Adequate bony alignment. Minor degenerative changes. Unremarkable soft tissues. IMPRESSION: No acute displaced fracture. Impression dictated by: James Oseguera M.D. 10/04/2024 4:47 PM Dictation Location: [facility] Electronically authenticated by: [id number] Y Date: 10/04/2024 16:47 XR left hip/ pelvis: Radiologist's impression: ITS Impressions Chest X-Ray 10/04/24 15:54 IMPRESSION: Mild cardiomegaly and hilar vascular congestion. 2 views left hip a single view pelvis No acute displaced fracture. Adequate bony alignment. Minor degenerative changes. Unremarkable soft tissues. IMPRESSION: No acute displaced fracture. Impression dictated by: James Oseguera M.D. 10/04/2024 4:47 PM Dictation Location: RADIO-PC-20 Electronically authenticated by: [id number] Y Date: 10/04/2024 16:47 Femur X-Ray 10/04/24 15:54 IMPRESSION: No acute bony findings. Impression dictated by: James Oseguera M.D. 10/04/2024 4:43 PM Dictation Location: RADIO-PC-20 Electronically authenticated by: [id number] Y Date: 10/04/2024 16:[address] 10/04/24 15:54 IMPRESSION: No acute findings. Impression dictated by: James Oseguera M.D. 10/04/2024 4:41 PM Dictation Location: RADIO-PC-20 Electronically authenticated by: [id number] Y Date: 10/04/2024 16:41 Hip/Pelvis X-Ray 10/04/24 15:54 IMPRESSION: Mild cardiomegaly and hilar vascular congestion. 2 views left hip a single view pelvis No acute displaced fracture. Adequate bony alignment. Minor degenerative changes. Unremarkable soft tissues. IMPRESSION: No acute displaced fracture. Impression dictated by: James Oseguera M.D. 10/04/2024 4:47 PM Dictation Location: RADIO-PC-20 Electronically authenticated by: [id number] Y Date: 10/04/2024 16:47 Discharge Plan Discharge Chief Complaint: Weakness Clinical Impression: Falls frequently Patient Disposition: Admitted As Inpatient Condition: Fair Discharge Date/Time: 10/04/24 18:30
[2024-10-04 16:33] LABS: Basophils Percent Auto 0.4 % (0.2-2.0); Eosinophils Absolute Auto 0.3 10^3/uL (0.0-0.7); Eosinophils Percent Auto 4.9 % (0.9-7.0); Hematocrit 31.8 % (42.0-54.0); Hemoglobin 10.7 g/dL (14.0-18.0); Immature Granulocytes Abs Auto 0.02 10^3/uL (0.00-0.03); Immature Granulocytes Pct Auto 0.3 % (0.0-0.5); Lymphocytes Absolute Auto 1.6 10^3/uL (1.2-3.8); Lymphocytes Percent Auto 22.7 % (20.5-60.0); Mean Corpuscular HGB Conc 33.6 g/dL (29.9-35.2); Mean Corpuscular Hemoglobin 29.4 pg (25.9-34.0); Mean Corpuscular Volume 87.4 fL (80.0-94.0); Mean Platelet Volume 10.6 fL (9.5-13.5); Monocytes Absolute Auto 0.5 10^3/uL (0.3-0.8); Monocytes Percent Auto 7.8 % (1.7-12.0); Neutrophils Absolute Auto 4.4 10^3/uL (1.4-6.5); Neutrophils Percent Auto 63.9 % (43.0-75.0); Platelet Count 204 10^3/uL (150-450); Red Blood Count 3.64 10^6/uL (4.70-6.10); Red Cell Distribution Width 15.1 % (11.0-15.0); White Blood Count 6.9 10^3/uL (4.0-11.0)
[2024-10-04 16:48] LABS: Alanine Aminotransferase 20 U/L (16-63); Albumin Globulin Ratio 0.9; Albumin Level 3.4 g/dL (3.4-5.0); Alkaline Phosphatase 70 U/L (46-116); Anion Gap 13.9; Aspartate Amino Transferase 32 U/L (15-37); BUN Creatinine Ratio 21.2; Bilirubin Total 0.5 mg/dL (0.2-1.0); Calcium 9.3 mg/dL (8.5-10.1); Carbon Dioxide 26.4 mmol/L (21.0-32.0); Chloride 102 mmol/L (98-107); Estimated GFR (African America >60 (>=60 mL/min/1.73m^2); Estimated GFR (Non-African Ame 59 (>=60 mL/min/1.73m^2); Glucose 101 mg/dL (74-106); Potassium 4.3 mmol/L (3.5-5.1); Sodium 138 mmol/L (136-145); Total Protein 7.4 g/dL (6.4-8.2)
[2024-10-04 16:53] LABS: INR 1.02; Prothrombin Time 10.8 sec (9.0-11.6)
--- OUTSIDE RECORDS SUMMARY | 2024-10-04 18:55 | XMS_ITS | CCD ---
Author Organization [facility] Care Team Providers Care Closer On Name Role Phone JESSICA HUNTER Admitting Unavailable [...] (1 source) Oxytetracycline Drug Allergy 2 [facility] Repository (1 source) Penicillins Drug allergy (disorder) 3 [facility] Repository (1 source) Penicillin; Translations: [penicillin] Drug Allergy [facility] Repository Problems Active Problems Problem Classification [...] 05-28-2022 Episodic Other aftercare (1 source) Other ch[facility] (current) drug therapy; Translations: [OTH CARE HOME CURRENT DRUG THERAPY] Onset: 05-30-2022 Episodic Other [...] Onset: 11-15-2021 Episodic Other aftercare (1 source) [facility] (current) use of antithrombotics/an tiplatelets; Translations: [BEEF SELECTOR ANTITHROMBOT/ANTIP LATLETS] Onset: 11-17-2021 Episodic Unclassified (1 source) COUGH, UNSPECIFIED; Translations: [COUGH, UNSPECIFIED] Onset: 04-27-2022 Results Test Name Value Interpretation Reference Range [facility] Patient Handouton 06-20-2024 Patient Handout [id number] .00OTGTIFF [facility] Patient Provided Health Data on 06-20-2024 Patient Provided Health Data [id number] .00OTGTIFF [facility] CT CSPINE WO CONon CT CSPINE WO [...] by: FABI COBB Date: 2022-05-28 20:[address] [facility] [address] HEAD WO CONon 05-28-2022 CT [...] VAIBHAV ROJAS Date: 2022-05-28 21:17 Normal [facility] Covid-19 PCR (CVDTB)on 04-01 SARS-CoV-2 (COVID-19) RNA VINH+probe Ql (Unsp spec) Detected Critically abnormal NOT DETECTED [facility] Comment on above: Result Comment: This test is not yet az roved or cleared by the [place] FDA. When there are no FDA-approved or cleared tests available, and other criteria are met, FDA can make tests available under an emergency access mechanism called an Emergency Use Authorization (EUA). The EUA for this test is supported by the [place] of Health and Human Service's declaration that [...] used). Performed By: #### C VDTBH #### [facility] [address] [place] [address] Dr. James Green INFLUENZA A AND B AGon 04[facility] BELOW Normal [facility] Comment on above: Result Comment: Negative for Flu A prote in angiten. Infection due to Flu A cannot be ruled out. Flu A angiten in the sample may be below the detection limit of the test. Performed By: #### I NFLUAB #### [facility] [address] [place] [address] Dr. James Green INFLUBNEG SEE BELOW Normal [facility] Comment on above: Result Comment: Negative for Flu B prote in antigen. Infection due to Flu B cannot be ruled out. Flu B antigen in the sample may be below the detection limit of the test. Performed By: #### I NFLUAB #### [facility] [address] [place] [address] Dr. James Green INFLUENZA A AG Negative Normal NEGATIVE SEE COMMENT [facility] Comment on above: Performed By: #### INFLUAB #### [facility] [address] [place] [address] Dr. James Green INFLUENZA B AG Negative Normal NEGATIVE SEE COMMENT [facility] Comment on above: Performed By: #### INFLUAB #### [facility] [address] [place], [place] [address] Dr. James Green XR CHEST 1 Von [...] FABI HEAD Date: 2022-04-27 07:47 Normal [facility] Encounters Encounter Date Encounter Type Care Provider Facility Start: 07-22-2024 End: 07-22-2024 ambulatory DO SHARMAINE GIL Facility:[facility] Start: 06-19-2024 ambulatory DO SHARMAINE GIL Faci lity:[facility] Clinic Start: 05-28-2022 End: 05-28-[address] DOCTOR HERNANDEZ Facility:[facility] Start: 04-27-2022 End: 04-27-[address] JOHAN ROSEN Facility:[facility] Start: 11-15-2021 End: 11-15-2021 ambulatory JESSICA HUNTER Facility:[facility] Payers Date Payer Category Payer Private Health Insurance [id number] 2019 Unknown [id number] 1961 Medicare [id number] 1945 Unknown [id number] [id number] 1945 Unknown [id number] [id number] [id number] 1945 Unknown [id number] 2.16.84 [id number] 1945 Unknown [id number] [id number] 1945 Unknown [id number] 2.16.8 [id number] Summary Purpose Family History No Family History Records FoundNo Family History Records Found Advance Directives No Advanced Directives Records FoundNo Advanced Directives Records Found Additional Source Comments (unrecognized sect ion and content) No Status Records FoundNo Status Records Found INFORMATION SOURCE (unrecogn ized section and content) DATE CREATED AUTHOR 05/30/2022 [facility] DATE CREATED AUTHOR AUTHOR'S ORGANIZ ATION 07/23/2024 [facility] FOR RECORDS PERTAINING TO PATIENTS WHO ARE [...] BE BASED ON THE PRIMARY CLINICAL RECORDS. [facility] [employer] [facility]. provides no warranty or guarantee of the accuracy or completeness of information in this document.
--- NOTE | 2024-10-04 18:59 | P.HP_ITS ---
HPI H&P: HPI History of Present Illness Chief complaint: FALLS Generalized Weakness Hip Pain Narrative: Patient presented to the emergency room with several falls in the last week, these were witnessed by a neighbor who is very close to him, he states no prodromal symptoms he does not get chest pain or shortness of breath or palpitations when these happen he states just being clumsy, a neighbor does note that he had a previous stroke and has some resultant left-sided weakness that se ems to be progressing When I saw patient in the emergency room, resting comfortably in bed, does complain of some left hip pain that is his primary source of pain Opioid HPI Opioid Management Most Recent Pain and Opioid Data: Last Pain Scale 0 05/24/23, 10:52 Review of Systems ROS Status of ROS 10 or more systems reviewed and unremark able except as noted in history and below [facility] History (Updated 10/04/24 @ 19:07 by Bob Delacruz MD) Stage 3a chronic kidney disease (CKD) ?N18.31 - Chronic kidney disease, stage 3a (ICD-10) Ischemic cardiomyopathy ?I25.5 - Ischemic cardiomyopathy (ICD-10) CAD (coronary artery disease) ?I25.10 - Atherosclerotic heart disease of [place] coronary artery without angina pectoris (ICD-10) Hypertension ?I10 - Essential (primary) hypertension (ICD-10) Symptomatic bradycardia ?R00.1 - Bradycardia, unspecified (ICD-10) Prostate cancer ?C61 - Malignant neoplasm of prostate (ICD-10) Left-sided weakness ?R53.1 - Weakness (ICD-10) Stroke ?I63.9 - Cerebral infarction, unspecified (ICD-10) Surgical History (Updated 05/01/23 @ 03:04 by Adrianne Rios) H/O hernia repair ?Z98.890 - Other specified postprocedural states (ICD-10) ?Z87.19 - Personal history of other diseases of the digestive system (ICD-10) History of appendectomy ?Z90.49 - Acquired absence of other specified parts of digestive tract (ICD- 10) Hx of tonsillectomy ?Z90.89 - Acquired absence of other organs (ICD-10) H/O heart artery stent ?Z95.5 - Presence of coronary angioplasty implant and graft (ICD-10) Social History (Updated 10/04/24 @ 18:47 by Ning Oneil) Within the past year, how often did you have a drink containing alcohol: never Score interpretation: A score less than 4 is consistent with normal alcohol consumption. 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 Highest level of school completed/degree received: high school graduate Little interest or pleasure in doing things: not at all Feeling down, depressed, or hopeless: not at all Meds Home Medications and Allergies Home Medications ?Medication ?Instructions ?Recorded ?Confirmed ?Type calcium 600 mg (as 1 tab PO DAILY 04/30/2310/23 History carbonate)-vitamin D3 10 mcg (400 unit) tablet (Calcium 600 + D(3)) clopidogrel 75 mg tablet 75 mg PO DAILY 04/30/2310/23 History cyanocobalamin (vitamin B-12) 1,000 mcg PO DAILY 04/3010/04/24 History 1,000 mcg capsule spironolactone 25 mg tablet 25 mg PO DAILY 04/30/23 History (Aldactone) vit C 250 mg-vit E 90 mg-zinc 40 1 tab PO BID 04/30/23 05/24/23 History mg-copper 1 [id number] capsule (PreserVision AREDS-2) isosorbide mononitrate 30 mg 120 mg PO QDAY 05/24/23 0 10/04/24 History tablet,extended release 24 hr metoprolol succinate 25 mg 50 mg PO QDAY 05/24/2310/23 History tablet,extended release 24 hr oxybutynin chloride 5 mg tablet 5 mg PO BID 05/24/23 0 10/04/24 History aspirin 81 mg capsule 81 mg PO DAILY 10/04/2410/23 History duloxetine 20 mg capsule,delayed 20 mg PO DAILY 10/04/24 History release sprinkle ezetimibe 10 mg tablet 10 mg PO DAILY 10/04/2410/23 History losartan 100 mg tablet 100 mg PO .daily 10/04/24 History nitroglycerin 0.4 mg sublingual 0.4 mg sublingual Q5M PRN chest 10/04/24 10/04/24 History tablet pain ranolazine 500 mg tablet,extended 500 mg PO BID 10/04/24 History release,12 hr rosuvastatin 10 mg tablet 20 mg PO .at night 10/04/24 10/04/24 History rosuvastatin 20 mg tablet mg 10/04/24 History Allergies Allergy/AdvReac Type Severity Reaction Status Date / Time Penicillins Allergy Hives Verified 05/23/23 14:52 Exam Constitutional Vital Signs, click to edit/add: Last Vital Signs Temp 98.2 F 10/04/24 15:26 Pulse 53 L 10/04/24 15:26 Resp 18 10/04/24 15:26 BP 194/80 H 10/04/24 15:26 Pulse Ox 98 10/04/24 15:26 O2 Del Method Room Air 10/04/24 16:14 Documenting provider has reviewed patient's vital signs: yes Common normals: no apparent distress Chest Common normals: inspection of chest normal Respiratory Common normals: normal respiratory effort and no retractions; not clear to ascultation bilaterally Auscultation: rhonchi Cardio Common normals: regular rhythm; irregular rate Rate: bradycardic GI Common normals: Normal to inspection, nondistended, normoactive bowel sounds pre sent, soft to palpation and non-tender Extremity Common normals: abnormal to inspection (Trace edema) Neuro Common normals: moves all extremities (Maybe some left-sided weakness upper and lower extremity) Results Labs Labs: Short CBC 10/04/24 Range/Units 16:17 WBC 6.9 (4.0-11.0) 10^3/uL Hgb 10.7 L (14.0-18.0) g/dL Hct 31.8 L (42.0-54.0) % Plt Count 204 (150-450) 10^3/uL BMP 10/04/24 16:17 Sodium 138 Potassium 4.3 Chloride 102 Carbon Dioxide 26.4 BUN 25.0 H Creatinine 1.18 Glucose 101 Calcium 9.3 Liver Function 10/04/24 Range/Units 16:17 Total Bilirubin 0.5 (0.2-1.0) mg/dL AST 32 (15-37) U/L ALT 20 (16-63) U/L Alkaline Phosphatase 70 (46-116) U/L Albumin 3.4 (3.4-5.0) g/dL Assessment and Plan Assessment and Plan (1) Falls frequently: (2) Ischemic cardiomyopathy: (3) CAD (coronary artery disease): (4) Hypertension: (5) Prostate cancer: (6) Left-sided weakness: (7) Stroke: (8) Acute bronchitis: (9) COPD (chronic obstructive pulmonary disease): (10) Mild dehydration: (11) Depression: (12) Hypercholesterolemia: (13) Chronic combined systolic (congestive) and diastolic (congestive) heart failure: (14) Bladder spasms: Plan Admission findings: Mild bradycardia, uncontrolled hypertension, left-sided weakness although chronic, worse secondary to pain in the left hip status post fall x 4 in the last week Left hip pain-x-rays negative, physical therapy to work with patient, pain control, patient likely needs rehabilitation Acute bronchitis with acute exacerbation of COPD-no wheezing hold off on steroids aerosol treatments and oral antibiotics History of recurrent UTI-check urinalysis Chronic combined congestive heart failure with LVH-continue current medications, check BNP and HST Coronary artery disease secondary to hypercholesterolemia-continue with home medications Uncontrolled hypertension on admission may be secondary to pain-maintain home medications and as needed hydralazine Prostate cancer-he gets twice year injections as maintenance Sinus bradycardia-many medications adjusted-will change patient from metoprolol to Coreg Admission status: Patient status post fall x 4 unable to ambulate secondary to left hip pain complicated by acute bronchitis increasing weakness, history of UTI checking urinalysis, unlikely to improve overall symptoms including the bronchitis or his inability today to ambulate within the first midnight, medically necessary treatment will span 2 midnights. Inpatient status
[2024-10-04 19:21] LABS: Influenza Virus A Antigen Negative; Influenza Virus B Antigen Negative; Internal Control Within Normal Limits; Respiratory Syncytial Virus Not Detected (NOT DETECTE); SARS-CoV-2 Ag NEGATIVE (NEGATIVE)
[2024-10-04 19:22] LABS: Internal Control Within Normal Limits
[2024-10-04 19:25] LABS: Thyroid Stimulating Hormone 2.648 uIU/mL (0.358-3.740)
[2024-10-04 19:48] LABS: Creatine Kinase 88 U/L (39-308); Myoglobin 73 ng/mL (16-96)
[2024-10-04] MEDS: LACTATED RINGER'S SOLUTION 1,000 ML 50 ML IV (21:52)
[2024-10-04] MEDS: OXYBUTYNIN chloride 5 MG TABLET PO (21:53)
[2024-10-04] MEDS: RANOLAZINE 500 MG TAB.ER.12H PO (21:53)
[2024-10-04] MEDS: IPRATROPIUM/ALBUTEROL SULFATE 3 ML AMPUL.NEB IH (22:33)
[2024-10-05] VITALS (27 sets, daily range): BP systolic 125–199; BP diastolic 49–82; PULSE 48–97; TEMP 36.5–36.7; O2SAT 90–95
[2024-10-05] MEDS: METHYLPREDNISOLONE SOD SUCC PF 125 MG/2 ML VIAL 60 MG IVP ×4 (02:23→20:06)
[2024-10-05] MEDS: IPRATROPIUM/ALBUTEROL SULFATE 3 ML AMPUL.NEB IH ×3 (04:14→16:29)
[2024-10-05 05:32] LABS: Basophils Percent Auto 0.5 % (0.2-2.0); Eosinophils Absolute Auto 0.2 10^3/uL (0.0-0.7); Eosinophils Percent Auto 2.6 % (0.9-7.0); Hematocrit 31.2 % (42.0-54.0); Hemoglobin 10.5 g/dL (14.0-18.0); Immature Granulocytes Abs Auto 0.02 10^3/uL (0.00-0.03); Immature Granulocytes Pct Auto 0.3 % (0.0-0.5); Lymphocytes Absolute Auto 0.9 10^3/uL (1.2-3.8); Lymphocytes Percent Auto 13.7 % (20.5-60.0); Mean Corpuscular HGB Conc 33.7 g/dL (29.9-35.2); Mean Corpuscular Hemoglobin 29.1 pg (25.9-34.0); Mean Corpuscular Volume 86.4 fL (80.0-94.0); Mean Platelet Volume 10.7 fL (9.5-13.5); Monocytes Absolute Auto 0.2 10^3/uL (0.3-0.8); Monocytes Percent Auto 3.4 % (1.7-12.0); Neutrophils Absolute Auto 5.2 10^3/uL (1.4-6.5); Neutrophils Percent Auto 79.5 % (43.0-75.0); Platelet Count 199 10^3/uL (150-450); Red Blood Count 3.61 10^6/uL (4.70-6.10); Red Cell Distribution Width 15.2 % (11.0-15.0); White Blood Count 6.5 10^3/uL (4.0-11.0)
[2024-10-05 06:04] LABS: Anion Gap 14.7; BUN Creatinine Ratio 20.6; Calcium 9.3 mg/dL (8.5-10.1); Carbon Dioxide 24.7 mmol/L (21.0-32.0); Chloride 104 mmol/L (98-107); Creatine Kinase 68 U/L (39-308); Estimated GFR (African America >60 (>=60 mL/min/1.73m^2); Estimated GFR (Non-African Ame 53 (>=60 mL/min/1.73m^2); Glucose 135 mg/dL (74-106); Magnesium 1.6 mg/dL (1.8-2.4); Myoglobin 73 ng/mL (16-96); Potassium 4.4 mmol/L (3.5-5.1); Sodium 139 mmol/L (136-145); Troponin I High Sensitivity 14.5 pg/mL (4.0-76.1)
--- NOTE | 2024-10-05 08:11 | PM.PN ---
Progress Note: Subjective Subjective Interval history: Patient sitting in chair. He reports that his left hip pain is much improved today. He was able to get around with his walker with PT and felt more sturdy. He denies any dizziness. New medication has been the Renexa. He has been on this about 1 week. Also was changed to Losartan from lisinopril. He lives home alone but is able to take care of himself. He has a walker. No other complaints currently. Exam Narrative Exam Narrative: General: Patient is alert, and oriented to person, place and time with normal affect, proper hygiene Skin: no visible rashes, or ulcers Head: atraumatic, acephalic Eyes: PERRLA, no nystagmus present, conjunctiva clear, no scleral icterus Ears: normal gross auditory acuity Heart: Normal rate and rhythm, no murmurs/rubs/gallops Lungs: no audible wheezes, crackles and normal breath sounds all lung menezes Abdomen: Normal audible bowel sounds, no distension, No palpable masses, no organomegaly, no rebound/guarding/ or rigidity Musculoskeletal: no swelling bilateral lower extremities, no palpable pain in the left hip Neuro: CN II-X grossly intact Constitutional Vital Signs, click to edit/add: Last Vital Signs Temp 97.7 F 10/05/24 07:57 Pulse 60 10/05/24 07:57 Resp 18 10/05/24 07:57 BP 160/80 H 10/05/24 07:57 Pulse Ox 93 L 10/05/24 07:57 O2 Del Method Room Air 10/05/24 07:57 Progress Note: Objective Labs Labs: Short CBC 10/04/24 10/05/24 Range/Units 16:17 05:11 WBC 6.9 6.5 (4.0-11.0) 10^3/uL Hgb 10.7 L 10.5 L (14.0-18.0) g/dL Hct 31.8 L 31.2 L (42.0-54.0) % Plt Count 204 199 (150-450) 10^3/uL BMP 10/04/24 10/05/24 16:17 05:11 Sodium 138 139 Potassium 4.3 4.4 Chloride 102 104 Carbon Dioxide 26.4 24.7 BUN 25.0 H 27.0 H Creatinine 1.18 1.31 H Glucose 101 135 H Calcium 9.3 9.3 Cardiac Enzymes 10/04/24 10/05/24 Range/Units 16:17 05:11 Total Creatine Kinase 88 68 (39-308) U/L Liver Function 10/04/24 Range/Units 16:17 Total Bilirubin 0.5 (0.2-1.0) mg/dL AST 32 (15-37) U/L ALT 20 (16-63) U/L Alkaline Phosphatase 70 (46-116) U/L Albumin 3.4 (3.4-5.0) g/dL Progress Note: A&P Assessment and Plan (1) Symptomatic bradycardia: Assessment and Plan: Patient with frequent falls lately. Trop and ProBNP normal. Awaiting UA results. HR has been in the 50's. Will decrease Metoprolol to 25mg daily from 50mg daily. Stop Spironolactone. He is also taking isosorbide and Losartan. BP remains stable. Will need Holter monitor at discharge. follow with Dr. Grimes at [facility] cardiology (2) Falls frequently: Assessment and Plan: could be due to #1, or acute UTI?, awaiting UA. WBC's normal, Hb slightly low at 10.5. He has history of Vitamin B12 deficiency, will recheck level tomorrow. (3) Left hip pain: Assessment and Plan: X-rays have been negative. This was from prior Fall. Continue with Solumedrol for pain control, tylenol, can add something if needed. (4) CAD (coronary artery disease): Assessment and Plan: continue rosuvastatin, aspirin and plavix Qualifiers: Associated angina: with stable angina Coronary Disease-Associated Artery/Lesion type: [place] artery [place] vs. transplanted heart: [place] heart Qualified Code(s): I25.118 - Atherosclerotic heart disease of [place] coronary artery with other forms of angina pectoris (5) Hypertension: Assessment and Plan: adjust medications as above due to bradycardia Qualifiers: Hypertension type: primary hypertension Qualified Code(s): I10 - Essential (primary) hypertension (6) Prostate cancer: Assessment and Plan: Patient currently gets injections q2 times a year (7) Stroke: Assessment and Plan: Patient with prior history of stroke affected Left side of the body causing residual weakness. Recheck CT head was normal, no acute strokes noted. Qualifiers: CVA mechanism: unspecified Qualified Code(s): I63.9 - Cerebral infarction, unspecified (8) COPD (chronic obstructive pulmonary disease): Assessment and Plan: Patient with history, appears in no acute COPD exacerbation. Qualifiers: COPD type: unspecified COPD Qualified Code(s): J44.9 - Chronic obstructive pulmonary disease, unspecified (9) Mild dehydration: Assessment and Plan: continue with IV fluid hydration, Gentle at 50cc/hr, Cr up 1.31 today, I have decreased steroids and metoprolol (10) Depression: Assessment and Plan: continue cymbalta Qualifiers: Depression Type: unspecified Qualified Code(s): F32.A - Depression, unspecified (11) Hypercholesterolemia: Assessment and Plan: continue statin (12) Chronic combined systolic (congestive) and diastolic (congestive) heart failure: Assessment and Plan: normal proBNP and Trop, no acute exacerbation. stop fluids Plan Patient is a full code Patient will get PT/OT evaluations and possibly will need Home Health services. Possible discharge tomorrow.
[2024-10-05] MEDS: OXYBUTYNIN chloride 5 MG TABLET PO ×2 (09:45→20:07)
[2024-10-05] MEDS: ASPIRIN 81 MG TABLET.DR PO (09:45)
[2024-10-05] MEDS: ISOSORBIDE MONONITRATE 60 MG TAB.ER.24H 120 MG PO (09:45)
[2024-10-05] MEDS: LOSARTAN POTASSIUM 50 MG TABLET 100 MG PO (09:45)
[2024-10-05] MEDS: EZETIMIBE 10 MG TABLET PO (09:45)
[2024-10-05] MEDS: CLOPIDOGREL BISULFATE 75 MG TABLET PO (09:45)
[2024-10-05] MEDS: FOLIC ACID/VIT B6/VIT B12 TABLET 1 TAB PO (09:45)
[2024-10-05] MEDS: METOPROLOL SUCCINATE 25 MG TAB.ER.24H PO (09:45)
[2024-10-05] MEDS: RANOLAZINE 500 MG TAB.ER.12H PO ×2 (09:46→20:06)
[2024-10-05] MEDS: CALCIUM CARBONATE 600 MG/VITAMIN D3 400 IU TABLET 1 TAB PO (09:46)
[2024-10-05] MEDS: MAGNESIUM SULFATE IN WATER 2 GM/50 ML PREMIX IV (09:50)
[2024-10-05] MEDS: HYDRALAZINE HCL 20 MG/ML VIAL 10 MG IVP (17:07)
[2024-10-05 17:57] LABS: Troponin I High Sensitivity 43.5 pg/mL (4.0-76.1)
[2024-10-05] MEDS: NITROGLYCERIN 0.4 MG BOTTLE SL (18:47)
[2024-10-05] MEDS: ACETAMINOPHEN 500 MG TABLET 1000 MG PO (20:06)
[2024-10-05 20:37] LABS: Glucometer 289 mg/dL (74-106)
[2024-10-05] MEDS: ATORVASTATIN CALCIUM 40 MG TABLET PO (22:00)
[2024-10-06] VITALS (20 sets, daily range): BP systolic 154–184; BP diastolic 52–84; PULSE 59–94; TEMP 36.3–36.6; O2SAT 93–96
[2024-10-06] MEDS: HYDRALAZINE HCL 20 MG/ML VIAL 10 MG IVP (00:43)
[2024-10-06] MEDS: HYOSCYAMINE SULFATE 0.125 MG TAB.SUBL SL (00:43)
[2024-10-06 01:40] LABS: Troponin I High Sensitivity 168.2 pg/mL (4.0-76.1)
[2024-10-06] MEDS: METHYLPREDNISOLONE SOD SUCC PF 125 MG/2 ML VIAL 60 MG IVP ×3 (05:31→21:16)
[2024-10-06 07:08] LABS: Basophils Percent Auto 0.1 % (0.2-2.0); Hematocrit 32.8 % (42.0-54.0); Immature Granulocytes Abs Auto 0.09 10^3/uL (0.00-0.03); Immature Granulocytes Pct Auto 0.6 % (0.0-0.5); Lymphocytes Absolute Auto 0.8 10^3/uL (1.2-3.8); Lymphocytes Percent Auto 5.8 % (20.5-60.0); Mean Corpuscular HGB Conc 33.5 g/dL (29.9-35.2); Mean Corpuscular Volume 86.5 fL (80.0-94.0); Monocytes Absolute Auto 0.3 10^3/uL (0.3-0.8); Monocytes Percent Auto 2.4 % (1.7-12.0); Neutrophils Absolute Auto 12.6 10^3/uL (1.4-6.5); Neutrophils Percent Auto 91.1 % (43.0-75.0); Platelet Count 225 10^3/uL (150-450); Red Blood Count 3.79 10^6/uL (4.70-6.10); Red Cell Distribution Width 15.4 % (11.0-15.0); White Blood Count 13.9 10^3/uL (4.0-11.0)
[2024-10-06 07:16] LABS: Anion Gap 18.7; BUN Creatinine Ratio 20.5; Calcium 9.2 mg/dL (8.5-10.1); Carbon Dioxide 21.7 mmol/L (21.0-32.0); Chloride 104 mmol/L (98-107); Estimated GFR (African America >60 (>=60 mL/min/1.73m^2); Estimated GFR (Non-African Ame 57 (>=60 mL/min/1.73m^2); Glucose 211 mg/dL (74-106); Potassium 4.4 mmol/L (3.5-5.1); Sodium 140 mmol/L (136-145)
--- NOTE | 2024-10-06 09:09 | PM.PN ---
Progress Note: Subjective Subjective Interval history: left hip pain improved but last evening patient started having chest pain after albuterol neb treatment. This has been discontinued. He also gets worked up when his friend comes to visit. Trop was checked at the time and was normal. He was given a Nitro and states he takes them often. This morning Trop up to 168. He is no longer having chest pain. EKG obtained that showed no acute changes. Chest X-ray pending. I will check Echo in the morning and get Cards consult. Continue to trend troponins. He reports he has the [facility] coming for evaluation monday. He sees [facility] cardiology. Exam Narrative Exam Narrative: General: Patient is alert, and oriented to person, place and time with normal affect, proper hygiene Skin: no visible rashes, or ulcers Head: atraumatic, acephalic Eyes: PERRLA, no nystagmus present, conjunctiva clear, no scleral icterus Ears: normal gross auditory acuity Heart: Normal rate and rhythm, no murmurs/rubs/gallops Lungs: no audible wheezes, crackles and normal breath sounds all lung menezes Abdomen: Normal audible bowel sounds, no distension, No palpable masses, no organomegaly, no rebound/guarding/ or rigidity Musculoskeletal: no swelling bilateral lower extremities, no palpable pain in the left hip Neuro: CN II-X grossly intact Constitutional Vital Signs, click to edit/add: Last Vital Signs Temp 97.7 F 10/06/24 07:30 Pulse 94 H 10/06/24 08:00 Resp 18 10/06/24 07:30 BP 160/52 H 10/06/24 07:30 Pulse Ox 94 L 10/06/24 07:30 O2 Del Method Room Air 10/06/24 07:30 Progress Note: Objective Labs Labs: Short CBC 10/06/24 Range/Units 06:45 WBC 13.9 H (4.0-11.0) 10^3/uL Hgb 11.0 L (14.0-18.0) g/dL Hct 32.8 L (42.0-54.0) % Plt Count 225 (150-450) 10^3/uL BMP 10/06/24 06:45 Sodium 140 Potassium 4.4 Chloride 104 Carbon Dioxide 21.7 BUN 25.0 H Creatinine 1.22 Glucose 211 H Calcium 9.2 Progress Note: A&P Assessment and Plan (1) Ischemic cardiomyopathy: Assessment and Plan: history of and now elevated Trop. Check Echo tomorrow, cards consult, continue statin and aspirin. No acute chest pain or EKG changes. (2) Bronchitis: Assessment and Plan: stop nebs add oral azith today. continue solumedrol (3) Falls frequently: Assessment and Plan: PT/OT evaluations and treatment (4) Left hip pain: Assessment and Plan: continue steroid (5) CAD (coronary artery disease): Assessment and Plan: continue rosuvastatin, aspirin and plavix Qualifiers: Associated angina: with stable angina Coronary Disease-Associated Artery/Lesion type: [place] artery [place] vs. transplanted heart: [place] heart Qualified Code(s): I25.118 - Atherosclerotic heart disease of [place] coronary artery with other forms of angina pectoris (6) Hypertension: Assessment and Plan: continue home meds Qualifiers: Hypertension type: primary hypertension Qualified Code(s): I10 - Essential (primary) hypertension (7) Prostate cancer: Assessment and Plan: Patient currently gets injections q2 times a year (8) Stroke: Assessment and Plan: Patient with prior history of stroke affected Left side of the body causing residual weakness. Recheck CT head was normal, no acute strokes noted. Qualifiers: CVA mechanism: unspecified Qualified Code(s): I63.9 - Cerebral infarction, unspecified (9) COPD (chronic obstructive pulmonary disease): Assessment and Plan: patient with history, appears in no acute COPD exacerbation. Qualifiers: COPD type: unspecified COPD Qualified Code(s): J44.9 - Chronic obstructive pulmonary disease, unspecified (10) Depression: Assessment and Plan: continue cymbalta Qualifiers: Depression Type: unspecified Qualified Code(s): F32.A - Depression, unspecified (11) Hypercholesterolemia: Assessment and Plan: continue statin (12) Chronic combined systolic (congestive) and diastolic (congestive) heart failure: Assessment and Plan: normal proBNP, continue home meds Plan Patient is a full code Patient needs 1-2 more days of hospital necessary care and cardiac work up
[2024-10-06] MEDS: ACETAMINOPHEN 500 MG TABLET 1000 MG PO (09:26)
[2024-10-06] MEDS: ISOSORBIDE MONONITRATE 60 MG TAB.ER.24H 120 MG PO (09:26)
[2024-10-06] MEDS: LOSARTAN POTASSIUM 50 MG TABLET 100 MG PO (09:26)
[2024-10-06] MEDS: EZETIMIBE 10 MG TABLET PO (09:26)
[2024-10-06] MEDS: FOLIC ACID/VIT B6/VIT B12 TABLET 1 TAB PO (09:26)
[2024-10-06] MEDS: CLOPIDOGREL BISULFATE 75 MG TABLET PO (09:27)
[2024-10-06] MEDS: RANOLAZINE 500 MG TAB.ER.12H PO ×2 (09:27→21:15)
[2024-10-06] MEDS: METOPROLOL SUCCINATE 50 MG TAB.ER.24H PO (09:27)
[2024-10-06] MEDS: CALCIUM CARBONATE 600 MG/VITAMIN D3 400 IU TABLET 1 TAB PO (09:27)
[2024-10-06] MEDS: OXYBUTYNIN chloride 5 MG TABLET PO ×2 (09:27→21:15)
[2024-10-06] MEDS: ASPIRIN 81 MG TABLET.DR PO (09:27)
[2024-10-06 12:39] LABS: Troponin I High Sensitivity 348.9 pg/mL (4.0-76.1)
--- NOTE | 2024-10-06 12:42 | ECG_ITS ---
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 Measurements Intervals [place] Rate: 68 P: DC: 248 QRS: 74 QRSD: 106 T: 75 QT: 438 QTc: 469 Interpretive Statements 1100 Sinus rhythm 2231 First degree AV block Abnormal ECG Compared to ECG 10/04/2024 16:04:56 No significant changes Electronically Signed On 10-06-2024 20:07:26 EDT by ZAC RUSSO M.D.
--- NOTE | 2024-10-06 12:42 | XR_ITS ---
[address] [address] Patient Name: FLACO ACOSTA MRN: [id number] date: 1945 Sex: M Assigned Patient Location: [place] Current Patient Location: [place] Accession/Order Number: [id number] Exam Date: 10/06/2024 15:29 Report Date: 10/06/2024 15:31 At the request of: LEVAR SALEH DO Procedure: XR chest 1V Plain film chest Single view HISTORY: Chest pain at a breathing treatment. COMPARISON: 10/04/2024 FINDINGS: SUPPORT DEVICES: None POSTSURGICAL CHANGES: None HEART: Within normal limits PULMONARY SHALOM: The basilar congestion MEDIASTINUM: Unremarkable LUNGS AND PLEURA: No acute lung process, pleural effusion or pneumothorax identified. Minor interstitial changes. BONY STRUCTURES: Intact ADDITIONAL FINDINGS None XR/XR chest 1V IMPRESSION: Mild CHF findings. Minimal pleural effusions. Impression dictated by: James Oseguera M.D. 10/06/2024 3:31 PM Dictation Location: [facility] Electronically authenticated by: [id number] Y Date: 10/06/2024 15:31
[2024-10-06] MEDS: AZITHROMYCIN 250 MG TABLET 500 MG PO (14:56)
[2024-10-06] MEDS: ATORVASTATIN CALCIUM 40 MG TABLET PO (21:15)
[2024-10-07] VITALS (19 sets, daily range): BP systolic 152–165; BP diastolic 57–89; PULSE 59–80; TEMP 36.4–36.6; O2SAT 91–95
[2024-10-07 00:35] LABS: Bilirubin Urine NEGATIVE (NEGATIVE); Blood Urine NEGATIVE (NEGATIVE); Clarity Urine CLEAR (CLEAR); Color Urine LT. YELLOW (YELLOW); Glucose Urine UA NEGATIVE (NEGATIVE); Ketones Urine NEGATIVE (NEGATIVE); Leukocyte Esterase Urine NEGATIVE (NEGATIVE); Nitrite Urine NEGATIVE (NEGATIVE); Protein Urine TRACE mg/dL (NEG/TRACE); Urobilinogen Urine 0.2 EU/dL (0.2-1.0)
[2024-10-07 00:41] LABS: Bacteria Urine NONE SEEN #/HPF (NONE SEEN); Cast Seen? NONE SEEN #/LPF (NONE SEEN); Crystals Seen? None Seen #/HPF (None Seen); Mucus Urine NONE SEEN (NONE SEEN); RBC Urine NONE SEEN #/HPF (0-2); Squamous Epithelial Cell Urine NONE SEEN #/LPF (NONE/RARE); Urine Culture Indicated ALREADY ORDERED; WBC Urine NONE SEEN #/HPF (NONE SEEN)
[2024-10-07 05:34] LABS: Basophils Percent Auto 0.1 % (0.2-2.0); Hematocrit 32.2 % (42.0-54.0); Hemoglobin 10.5 g/dL (14.0-18.0); Immature Granulocytes Pct Auto 0.7 % (0.0-0.5); Lymphocytes Absolute Auto 0.9 10^3/uL (1.2-3.8); Lymphocytes Percent Auto 6.2 % (20.5-60.0); Mean Corpuscular HGB Conc 32.6 g/dL (29.9-35.2); Mean Corpuscular Hemoglobin 28.8 pg (25.9-34.0); Mean Corpuscular Volume 88.5 fL (80.0-94.0); Mean Platelet Volume 11.3 fL (9.5-13.5); Monocytes Absolute Auto 0.4 10^3/uL (0.3-0.8); Monocytes Percent Auto 3.1 % (1.7-12.0); Neutrophils Absolute Auto 12.8 10^3/uL (1.4-6.5); Neutrophils Percent Auto 89.9 % (43.0-75.0); Platelet Count 226 10^3/uL (150-450); Red Blood Count 3.64 10^6/uL (4.70-6.10); Red Cell Distribution Width 15.5 % (11.0-15.0); White Blood Count 14.3 10^3/uL (4.0-11.0)
[2024-10-07] MEDS: METHYLPREDNISOLONE SOD SUCC PF 125 MG/2 ML VIAL 60 MG IVP (05:34)
[2024-10-07 05:56] LABS: BUN Creatinine Ratio 29.5; Carbon Dioxide 20.5 mmol/L (21.0-32.0); Chloride 105 mmol/L (98-107); Estimated GFR (African America >60 (>=60 mL/min/1.73m^2); Estimated GFR (Non-African Ame >60 (>=60 mL/min/1.73m^2); Glucose 265 mg/dL (74-106); Potassium 4.5 mmol/L (3.5-5.1); Sodium 139 mmol/L (136-145)
--- NOTE | 2024-10-07 07:57 | PM.PN ---
Progress Note: Subjective Subjective Interval history: left hip pain improved and weakness has improved. No further episodes of chest pain. I have been trending troponin and this morning was 382. He has had no acute changes on EKG, or events on Telemetry. Chest X-ray clear. Echo pending this morning. I plan to get Cards consult today as he is a [facility] patient to see if they want any other interventions done. I also stopped the IV Solumedrol. His cough has improved. He did well with PT today. The plan is discharge with home health services once cleared by Cardiology. Exam Narrative Exam Narrative: General: Patient is alert, and oriented to person, place and time with normal affect, proper hygiene Skin: no visible rashes, or ulcers Head: atraumatic, acephalic Eyes: PERRLA, no nystagmus present, conjunctiva clear, no scleral icterus Ears: normal gross auditory acuity Heart: Normal rate and rhythm, no murmurs/rubs/gallops Lungs: no audible wheezes, crackles and normal breath sounds all lung menezes Abdomen: Normal audible bowel sounds, no distension, No palpable masses, no organomegaly, no rebound/guarding/ or rigidity Musculoskeletal: no swelling bilateral lower extremities, no palpable pain in the left hip Neuro: CN II-X grossly intact Constitutional Vital Signs, click to edit/add: Last Vital Signs Temp 97.9 F 10/07/24 07:41 Pulse 66 10/07/24 07:41 Resp 20 10/07/24 07:41 BP 153/71 H 10/07/24 07:41 Pulse Ox 93 L 10/07/24 07:41 O2 Del Method Room Air 10/07/24 07:41 Progress Note: Objective Labs Labs: Short CBC 10/07/24 Range/Units 04:54 WBC 14.3 H (4.0-11.0) 10^3/uL Hgb 10.5 L (14.0-18.0) g/dL Hct 32.2 L (42.0-54.0) % Plt Count 226 (150-450) 10^3/uL BMP 10/07/24 04:54 Sodium 139 Potassium 4.5 Chloride 105 Carbon Dioxide 20.5 L BUN 33.0 H Creatinine 1.12 Glucose 265 H Calcium 9.0 Urine 10/06/24 Range/Units 22:52 Urine Color Lt. yellow (YELLOW) Urine Clarity Clear (CLEAR) Urine pH 6.0 (5.0-9.0) Ur Specific [place] 1.010 (1.005-1.025) Urine Protein Trace (NEG/TRACE) mg/dL Urine Glucose (UA) Negative (NEGATIVE) mg/dL Progress Note: A&P Assessment and Plan (1) Bronchitis: Assessment and Plan: stop nebs continue oral azith, stop solumedrol, start oral prednisone (2) Left hip pain: Assessment and Plan: continue predisone (3) NSTEMI (non-ST elevated myocardial infarction): Assessment and Plan: history of and now elevated Trop. Check Echo, cards consult, continue statin and aspirin, plavix. No acute chest pain or EKG changes. (4) Ischemic cardiomyopathy: Assessment and Plan: history of (5) Falls frequently: Assessment and Plan: did well with PT/OT evaluations, plans for Home health at discharge (6) CAD (coronary artery disease): Assessment and Plan: continue rosuvastatin, aspirin and plavix Qualifiers: Associated angina: with stable angina Coronary Disease-Associated Artery/Lesion type: [place] artery [place] vs. transplanted heart: [place] heart Qualified Code(s): I25.118 - Atherosclerotic heart disease of [place] coronary artery with other forms of angina pectoris (7) Hypertension: Assessment and Plan: continue home meds Qualifiers: Hypertension type: primary hypertension Qualified Code(s): I10 - Essential (primary) hypertension (8) Prostate cancer: Assessment and Plan: Patient currently gets injections q2 times a year (9) Stroke: Assessment and Plan: Patient with prior history of stroke affected Left side of the body causing residual weakness. Recheck CT head was normal, no acute strokes noted. Qualifiers: CVA mechanism: unspecified Qualified Code(s): I63.9 - Cerebral infarction, unspecified (10) COPD (chronic obstructive pulmonary disease): Assessment and Plan: patient with history, appears in no acute COPD exacerbation. Qualifiers: COPD type: unspecified COPD Qualified Code(s): J44.9 - Chronic obstructive pulmonary disease, unspecified (11) Depression: Assessment and Plan: continue cymbalta Qualifiers: Depression Type: unspecified Qualified Code(s): F32.A - Depression, unspecified (12) Hypercholesterolemia: Assessment and Plan: continue statin (13) Chronic combined systolic (congestive) and diastolic (congestive) heart failure: Assessment and Plan: normal proBNP, continue home meds Plan Patient is a full code Patient needs 1-2 more days of hospital necessary care and cardiac work up
[2024-10-07 08:06] LABS: Estimated Average Glucose 117 mg/dL; Glycohemoglobin A1C 5.7 % (4.5-6.2)
[2024-10-07 08:13] LABS: Troponin I High Sensitivity 382.4 pg/mL (4.0-76.1)
[2024-10-07 08:24] LABS: Chol HDL Ratio 1.9; Cholesterol 99 mg/dL (<=200); HDL Cholesterol 51 mg/dL (40-60); Thyroid Stimulating Hormone 0.729 uIU/mL (0.358-3.740); Triglycerides 70 mg/dL (<=150)
[2024-10-07] MEDS: EZETIMIBE 10 MG TABLET PO (08:32)
[2024-10-07] MEDS: CALCIUM CARBONATE 600 MG/VITAMIN D3 400 IU TABLET 1 TAB PO (08:33)
[2024-10-07] MEDS: CLOPIDOGREL BISULFATE 75 MG TABLET PO (08:33)
[2024-10-07] MEDS: FOLIC ACID/VIT B6/VIT B12 TABLET 1 TAB PO (08:33)
[2024-10-07] MEDS: ISOSORBIDE MONONITRATE 60 MG TAB.ER.24H 120 MG PO (08:33)
[2024-10-07] MEDS: PREDNISONE 20 MG TABLET 40 MG PO (08:33)
[2024-10-07] MEDS: LOSARTAN POTASSIUM 50 MG TABLET 100 MG PO (08:33)
[2024-10-07] MEDS: OXYBUTYNIN chloride 5 MG TABLET PO ×2 (08:33→21:50)
[2024-10-07] MEDS: AZITHROMYCIN 250 MG TABLET PO (08:33)
[2024-10-07] MEDS: METOPROLOL SUCCINATE 50 MG TAB.ER.24H PO (08:34)
[2024-10-07] MEDS: RANOLAZINE 500 MG TAB.ER.12H PO ×2 (08:34→21:50)
[2024-10-07] MEDS: ASPIRIN 81 MG TABLET.DR PO (08:34)
--- NOTE | 2024-10-07 09:00 | CM.NOTE ---
Rounds made with Dr. Johnston, discussed with pt about cardiac echo and cardiology consult for further recommendations. Discussed with pt possible discharge this afternoon if cleared by cardiology.
--- NOTE | 2024-10-07 10:45 | SWNOTE1 ---
Pt is being discharged today and has a [place] home health eval on Monday, per patient. SW called [facility] and pt goes to [facility]. SW called [facility] and had to leave message for pt's social security specialist. Waiting for call back.
--- NOTE | 2024-10-07 11:28 | PT.DAILY ---
Physical Therapy Daily Note PT Daily Note/Assess Start: 10/07/24 11:19 Freq: Status: Active Protocol: Document 10/07/24 11:19 [id number] (Rec: 10/07/24 11:28 [id number]) Physical Therapy Daily Note/Assessment Time In/Time Out Time In 10:06 Time Out 10:16 Pain In Pain Level 0 Pain Out Pain Level 0 Subjective Subjective Patient received seated EOB. Agreeable to participate with PT. States he had already walked and did one step with OT earlier. States the L leg can get sore and has to be careful how much weight he places on it. Therapeutic Activity Time Therapeutic Activity 10 Minutes (minutes) Therapeutic Activity 1 Units Therapeutic Activity Treatment Chair Transfer Contact Guard Assist Ability Therapeutic Activity Patient performed 5 reps of sit to stand to 2WW with Comments CGA +1. Verbal cues for safe hand placement on R. Able to place R hand on walker, but does adjust with L hand. Patient ambulated ~130 feet x 1 with 2WW with CGA +1. Patient returned EOB and requests to sit vs laying down. All needs met and CBWR. Total Physical Therapy Time Total Therapy 10 Minutes Total Physical 1 Therapy Units Summary Daily Note Summary Patient requires verbal cues for safe hand placement during STS transfers. Improved ambulation distance this date. However, patient demonstrates decreased L LE WB towards end of walking. Does not achieve TKE on L during gait cycle. Patient would benefit from skilled services upon D/C to address functional deficits.
[2024-10-07 12:09] LABS: Vitamin B12 1963 pg/mL (232-1245)
--- NOTE | 2024-10-07 13:13 | SWNOTE1 ---
SW received a call from MAURISIO at [facility], she left a message. Pt was supposed to have an in home eval by outpt OT and he missed calls from outpt PT to complete eval. Pt can call and schedule outpatient therapy, she provided number. Pt is not set up with home health. He would have to do outpt or home health, can't do both. SW to speak with pt.
--- NOTE | 2024-10-07 13:48 | SWNOTE1 ---
MAURISIO spoke with pt. Pt was going to cardiac rehab, will return once feeling better. SW did advise that he can't have home health coming in and then do outpt therapy. Pt voiced he did go to [facility] as well to get outpt therapy. Pt voiced [facility] OT was coming in Monday to complete safety eval for home to see if he needs any other equipment in home. He would like to follow up with Dr. Astorga at [facility] so they can coordinate any outpt/home health. MAURISIO called and left message for MAURISIO at [facility].
--- NOTE | 2024-10-07 14:23 | CA_ITS ---
ECHOCARDIOGRAM REPORT PROCEDURE: CA ECHO DOPPLER COMPLETE INDICATIONS: NSTEMI, history of ischemic cardiomyopathy, COPD, hypertension, prostate cancer COMPARISON: None. DESCRIPTION: COMPLETE ECHOCARDIOGRAM Real-time transthoracic echocardiography with 2D, M-mode, spectral and color flow Doppler performed. QUALITY: Technical quality was poor. LEFT VENTRICLE: Normal chamber size. Moderate concentric left ventricular hypertrophy. It was difficult to evaluate left ventricle systolic function due to poor quality of apical views but it appears to be preserved. Cannot rule out presence of wall motion abnormalities LV EF: Normal left ventricular ejection fraction, (>55%). DIASTOLIC: Unable to evaluate left ventricular diastolic function ATRIAL SEPTUM: Visually appears intact. LEFT ATRIUM: Normal chamber size. RIGHT ATRIUM: Normal chamber size. RIGHT VENTRICLE: Normal chamber size. Normal right ventricular systolic function. TRICUSPID VALVE: Normal mobility and thickness. No stenosis with no regurgitation. MITRAL VALVE: Normal mobility and thickness. No evidence of mitral valve stenosis. There is no mitral annular calcification. Mild mitral regurgitation. AORTIC VALVE: Normal trileaflet appearance. No visible sclerosis. Normal leaflet mobility. No evidence of aortic valve stenosis. No aortic regurgitation. AORTIC ROOT: Normal diameter and appearance. Ascending aorta is normal in size PULMONIC VALVE: Normal thickness and mobility. No stenosis. Trivial regurgitation. PERICARDIUM: No evidence of pericardial effusion. IVC: Collapes with inspirations. PLEURA: CONCLUSION: Technically poor study particularly the apical views Moderate concentric left ventricle hypertrophy Difficult to evaluate left ventricular systolic function due to poor quality of apical views but it appears to be preserved, cannot rule out presence of wall motion abnormalities, ejection fraction estimated to be around 55% Normal right ventricle size and systolic function Mild mitral regurgitation Adult Echocardiography Procedure Report Left Ventricle LVEDD (3.7 - 5.6 cm): 5.08 cm LVESD (2.2 - 4.0 cm): 3.47 cm LVIVS thickness (0.6 - 1.2 cm): 1.57 cm LVPW thickness (0.5 - 1.0 cm): 1.45 cm e': 0.12 m/s E - e': 6.32 LVOT Max Gradient: LVOT Area (cm2): Peak Velocity (LVOT): Mean Velocity (LVOT): LVOT Diameter 2.51 cm Left Ventricular Ejection Fraction: Left Atrium LA Volume Index (2D A2C): Left Atrium Systolic Dimension: 4.29 cm Mitral Valve MV E to A Ratio: 1.01 MV Max Gradient: MV Mean Gradient: Mitral Valve A-Wave Peak Velocity: 0.72 m/s Mitral Valve E-Wave Peak Velocity: 0.73 m/s Cardiovascular Orifice Area: Right Ventricle RV Internal Diastolic Dimension: Aorta AO Root Diam: 3.90 cm Ascending Ao Diam: 3.33 cm Aortic Valve AoV Area ([place]): AoV Area (VTI): Deceleration [place]: Pressure Half-Time: Peak Velocity(Antegrade Flow): 1.01 m/s Peak Gradient(Antegrade Flow): 4.10 mm[Hg] Mean Velocity(Antegrade Flow): Mean Gradient(Antegrade Flow): Velocity Time Integral: Tricuspid Valve Peak Velocity (Regurgitant Flow): Peak Velocity: Pulmonic Valve Mean Gradient: 1.95 mm[Hg] Mean Velocity: 0.66 m/s Peak Velocity: 1.01 m/s, 0.96 m/s Peak Gradient: 3.68 mm[Hg], 4.07 mm[Hg] Right Atrium Right Atrium Systolic Pressure: Dictated by: Wilberto Campbell MD on 10/07/2024 at 17:16 Approved by: Wilberto Campbell MD on 10/07/2024 at 17:25 Continued Report - Page [place] [id number]
--- NOTE | 2024-10-07 17:30 | PM.CACN ---
History of Present Illness History of Present Illness Consult date: 10/07/24 Requesting physician: Urmila Johnston Consult reason: chest pain Chief complaint: Chest pain and elevated troponin Narrative: The patient is a 78-year-old male who is known to . Patient has history of coronary artery disease and multiple interventions including PCI with drug-eluting stent placement of left main, LAD and left circumflex artery October 2023 which was complicated by coronary perforation and pericardial effusion required pericardiocentesis. Also has history of hypertension, hyperlipidemia, CVA, obesity, and metastatic prostate cancer. He was seen recently on 09/[address] Mason in the clinic and the patient reported recurrent chest pain requiring nitroglycerin sublingual. His medications were adjusted for better blood pressure control and also he was started on Ranexa and he was scheduled to have stress test as outpatient. The patient reports that his chest pain became much less frequent after the medications adjustment. After admission to the hospital the patient was found to have acute bronchitis and he was started on steroids and nebulizer treatment. Yesterday after his nebulizer treatment he had severe chest pain and also he had significant hypertension. He was given nitroglycerin sublingual x 1 and he was given IV medication to control the blood pressure. That was associated with a jump in his troponin from 43 to 340 and 380. There was no significant EKG changes therefore cardiology was consulted. His blood pressure is better today however still on the high side. Steroid was discontinued yesterday. He did not receive any more nebulizer treatment. According to him he was walking in the hallway today without recurrent chest pain. The patient has chronic exertional dyspnea. He denies orthopnea or paroxysmal nocturnal dyspnea. He always has mild legs edema. Review of Systems ROS Narrative Of systems were reviewed and they were negative except for the positive findings in the noted above in the history [facility] Medical History (Updated 10/06/24 @ 14:19 by Urmila Johnston, DO) Chronic combined systolic (congestive) and diastolic (congestive) heart failure ?I50.42 - Chronic combined systolic (congestive) and diastolic (congestive) heart failure (ICD-10) Hypercholesterolemia ?E78.00 - Pure hypercholesterolemia, unspecified (ICD-10) Depression ?F32.A - Depression, unspecified (ICD-10) COPD (chronic obstructive pulmonary disease) ?J44.9 - Chronic obstructive pulmonary disease, unspecified (ICD-10) Stage 3a chronic kidney disease (CKD) ?N18.31 - Chronic kidney disease, stage 3a (ICD-10) Ischemic cardiomyopathy ?I25.5 - Ischemic cardiomyopathy (ICD-10) CAD (coronary artery disease) ?I25.10 - Atherosclerotic heart disease of [place] coronary artery without angina pectoris (ICD-10) Hypertension ?I10 - Essential (primary) hypertension (ICD-10) Symptomatic bradycardia ?R00.1 - Bradycardia, unspecified (ICD-10) Prostate cancer ?C61 - Malignant neoplasm of prostate (ICD-10) Left-sided weakness ?R53.1 - Weakness (ICD-10) Stroke ?I63.9 - Cerebral infarction, unspecified (ICD-10) Surgical History (Updated 05/01/23 @ 03:04 by Adrianne Rios) H/O hernia repair ?Z98.890 - Other specified postprocedural states (ICD-10) ?Z87.19 - Personal history of other diseases of the digestive system (ICD-10) History of appendectomy ?Z90.49 - Acquired absence of other specified parts of digestive tract (ICD-10) Hx of tonsillectomy ?Z90.89 - Acquired absence of other organs (ICD-10) H/O heart artery stent ?Z95.5 - Presence of coronary angioplasty implant and graft (ICD-10) Social History (Updated 10/04/24 @ 18:47 by Ning Oneil) Within the past year, how often did you have a drink containing alcohol: never Score interpretation: A score less than 4 is consistent with normal alcohol consumption. 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 Highest level of school completed/degree received: high school graduate Little interest or pleasure in doing things: several days Feeling down, depressed, or hopeless: several days Meds Home Medications and Allergies Home Medications ?Medication ?Instructions ?Recorded ?Confirmed ?Type calcium 600 mg (as 1 tab PO DAILY 04/30/23 10/04/24 History carbonate)-vitamin D3 10 mcg (400 unit) tablet (Calcium 600 + D(3)) clopidogrel 75 mg tablet 75 mg PO DAILY 04/30/23 10/04/24 History cyanocobalamin (vitamin B-12) 1,000 mcg PO DAILY 04/30/23 10/04/24 History 1,000 mcg capsule spironolactone 25 mg tablet 25 mg PO DAILY 04/30/23 10/04/24 History (Aldactone) vit C 250 mg-vit E 90 mg-zinc 40 1 tab PO BID 04/30/23 05/24/23 History mg-copper 1 [id number] capsule (PreserVision AREDS-2) oxybutynin chloride 5 mg tablet 5 mg PO BID 05/24/23 05/24/23 History aspirin 81 mg capsule 81 mg PO DAILY 10/04/24 10/04/24 History duloxetine 20 mg capsule,delayed 20 mg PO DAILY 10/04/24 History release sprinkle ezetimibe 10 mg tablet 10 mg PO DAILY 10/04/24 10/04/24 History losartan 100 mg tablet 100 mg PO DAILY 10/04/24 10/05/24 History nitroglycerin 0.4 mg sublingual 0.4 mg sublingual Q5M PRN chest 10/04/24 10/04/24 History tablet pain ranolazine 500 mg tablet,extended 500 mg PO BID 10/04/24 10/04/24 History release,12 hr rosuvastatin 10 mg tablet 10 mg PO .QHS 10/04/24 10/05/24 History isosorbide mononitrate 120 mg 120 mg PO DAILY 10/05/24 10/05/24 History tablet,extended release 24 hr metoprolol succinate 50 mg 50 mg PO DAILY 10/05/24 10/05/24 History tablet,extended release 24 hr Allergies Allergy/AdvReac Type Severity Reaction Status Date / Time Penicillins Allergy Hives Verified 05/23/23 14:52 Exam Narrative Exam Narrative: Patient is alert, oriented, not in apparent distress HEENT within normal limits Neck supple, normal range of motion, no carotid bruit, jugular venous pressure is normal Lungs generalized decreased breath sounds with fine scattered wheezes, no crackles Cardiovascular system regular rate and rhythm, normal S1 and S2, no gallop or click or murmur Abdomen obese, soft, benign no organomegaly or tenderness Extremities +1 edema bilaterally Neurological examination grossly normal Constitutional Vital Signs, click to edit/add: Last Vital Signs Temp 97.9 F 10/07/24 15:54 Pulse 72 10/07/24 16:00 Resp 20 10/07/24 15:54 BP 158/89 H 10/07/24 15:54 Pulse Ox 93 L 10/07/24 15:54 O2 Del Method Room Air 10/07/24 15:54 Results Labs and Meds Lab results: Lipids 10/07/24 Range/Units 04:54 Triglycerides 70 (<=150) mg/dL Cholesterol 99 (<=200) mg/dL HDL Cholesterol 51 (40-60) mg/dL Cholesterol/HDL Ratio 1.9 CBC 10/07/24 Range/Units 04:54 WBC 14.3 H (4.0-11.0) 10^3/uL RBC 3.64 L (4.70-6.10) 10^6/uL Hgb 10.5 L (14.0-18.0) g/dL Hct 32.2 L (42.0-54.0) % Plt Count 226 (150-450) 10^3/uL Neut # (Auto) 12.8 H (1.4-6.5) 10^3/uL Lymph # (Auto) 0.9 L (1.2-3.8) 10^3/uL [place] # (Auto) 0.4 (0.3-0.8) 10^3/uL Eos # (Auto) 0.0 (0.0-0.7) 10^3/uL Baso # (Auto) 0.0 (0.0-0.1) 10^3/uL Comprehensive Metabolic Panel 10/07/24 Range/Units 04:54 Sodium 139 (136-145) mmol/L Potassium 4.5 (3.5-5.1) mmol/L Chloride 105 (98-107) mmol/L Carbon Dioxide 20.5 L (21.0-32.0) mmol/L BUN 33.0 H (7.0-18.0) mg/dL Creatinine 1.12 (0.70-1.30) mg/dL Glucose 265 H (74-106) mg/dL Calcium 9.0 (8.5-10.1) mg/dL Intake and Output 10/07/24 10/07/24 10/07/24 07:59 15:59 23:59 Intake Total 350 / 1370 1100 / 1100 Output Total 700 / 1150 Balance -350 / 220 1100 / 1100 Intake: Oral 350 / 1370 1100 / 1100 Output: Urine 700 / 1150 Other: # Voids 1 # Bowel Movements 1 EKG on 10/04/2024 showed sinus bradycardia with first-degree AV block, no T or ST changes EKG on 10/06/2024 showed sinus bradycardia with first-degree AV block and nonspecific T changes Echo performed today 10/07/2024 was of poor quality particularly of the apical views Moderate concentric left ventricle hypertrophy Difficult to assess left ventricular systolic function however it appears to be preserved, cannot rule out wall motion abnormalities Mild mitral regurgitation Assessment and Plan Assessment and Plan (1) NSTEMI (non-ST elevated myocardial infarction): (2) Falls frequently: (3) Bronchitis: (4) Left hip pain: (5) CAD (coronary artery disease): Assessment and Plan: S/p angioplasty with drug-eluting stent placement of left main, LAD and left circumflex artery October 2023. It was complicated by coronary perforation and pericardial effusion required pericardiocentesis Qualifiers: Coronary Disease-Associated Artery/Lesion type: [place] artery [place] vs. transplanted heart: [place] heart Associated angina: with stable angina Qualified Code(s): I25.118 - Atherosclerotic heart disease of [place] coronary artery with other forms of angina pectoris (6) Stroke: Qualifiers: CVA mechanism: unspecified Qualified Code(s): I63.9 - Cerebral infarction, unspecified (7) Hypertension: Qualifiers: Hypertension type: primary hypertension Qualified Code(s): I10 - Essential (primary) hypertension (8) Hypercholesterolemia: (9) Prostate cancer: (10) COPD (chronic obstructive pulmonary disease): Qualifiers: COPD type: unspecified COPD Qualified Code(s): J44.9 - Chronic obstructive pulmonary disease, unspecified Plan Continue current medications including aspirin, Plavix, atorvastatin, Zetia, metoprolol, losartan, and Ranexa I reviewed his echo and it was difficult to evaluate the left ventricular systolic function due to poor apical views so could not evaluate for presence of new wall motion abnormalities Therefore I think in light of elevated troponin after the patient had severe episode of chest pain, the best approach at this time to transfer the patient to [facility] for cardiac catheterization and to evaluate coronary anatomy. Wilberto Campbell MD, FACC
--- NOTE | 2024-10-07 18:23 | P.DS_ITS ---
DS: Providers Provider Date of admission: 10/04/24 18:26 Primary care physician: SHARMAINE GIL Attending physician on admission: Bob Delacruz Consults: 10/04/24 18:50 Consult to Pharmacy Routine Consulting Provider: Reason for consultation: Please [place] me when Med Rec is Updated Has provider been notified: No Occupational Therapy Eval and Treat Routine Reason for consultation: Only if needed for Rehab Has provider been notified: No Physical Therapy Eval and Treat Routine Reason for consultation: Eval and Treat Has provider been notified: No 10/06/24 14:23 Consult to Cardiology Routine Reason for consultation: elevated Trop, sees Dr. Grimes Has provider been notified: No Discharging clinician: Urmila Johnston DS: Diagnosis Discharge Diagnosis (1) NSTEMI (non-ST elevated myocardial infarction): (2) Falls frequently: (3) Bronchitis: (4) Left hip pain: (5) CAD (coronary artery disease): Qualifiers: Coronary Disease-Associated Artery/Lesion type: [place] artery [place] vs. transplanted heart: [place] heart Associated angina: with stable angina Qualified Code(s): I25.118 - Atherosclerotic heart disease of [place] coronary artery with other forms of angina pectoris (6) Stroke: Qualifiers: CVA mechanism: unspecified Qualified Code(s): I63.9 - Cerebral infarction, unspecified (7) Hypertension: Qualifiers: Hypertension type: primary hypertension Qualified Code(s): I10 - Essential (primary) hypertension (8) Hypercholesterolemia: (9) Prostate cancer: (10) COPD (chronic obstructive pulmonary disease): Qualifiers: COPD type: unspecified COPD Qualified Code(s): J44.9 - Chronic obstructive pulmonary disease, unspecified DS: Summary Hospital Course Hospital Course: Please see progress notes dated 10/07/24. Patient had Echo read today that per Cardiology was poor quality . Cardiology came to see patient about 1730 this evening and after reviewing echo and chart recommended patient be transferred to [facility] for a heart cath. Transfer was initiated. Status at Discharge Functional status at discharge: uses cane/walker Overall status at discharge: patient is not back to baseline Time Spent with Patient Time attestation: Total time spent providing and/or coordinating discharge services: Time spent: greater than 30 minutes Exam Narrative Exam Narrative: no changes in exam from progress note dated 10/07/24 Constitutional Vital Signs, click to edit/add: Last Vital Signs Temp 97.9 F 10/07/24 15:54 Pulse 80 10/07/24 17:38 Resp 20 10/07/24 15:54 BP 158/89 H 10/07/24 15:54 Pulse Ox 93 L 10/07/24 15:54 O2 Del Method Room Air 10/07/24 15:54 DS: Data Data Completed and Pending Labs on day of discharge: Labs from last 24 hours 10/07/24 10/06/24 10/06/24 04:54 22:52 06:45 WBC 14.3 H RBC 3.64 L Hgb 10.5 L Hct 32.2 L MCV 88.5 MCH 28.8 MCHC 32.6 RDW 15.5 H Plt Count 226 MPV 11.3 Neut % (Auto) 89.9 H Lymph % (Auto) 6.2 L [place] % (Auto) 3.1 Eos % (Auto) 0.0 L Baso % (Auto) 0.1 L Neut # (Auto) 12.8 H Lymph # (Auto) 0.9 L [place] # (Auto) 0.4 Eos # (Auto) 0.0 Baso # (Auto) 0.0 Abs Immat Gran (auto) 0.10 H Imm/Tot Granulo (auto) 0.7 H Sodium 139 Potassium 4.5 Chloride 105 Carbon Dioxide 20.5 L Anion Gap 18.0 BUN 33.0 H Creatinine 1.12 Est GFR ( Amer) >60 Est GFR (Non-Af Amer) >60 BUN/Creatinine Ratio 29.5 Glucose 265 H Estimat Average Glucose 117 Hemoglobin A1c 5.7 Calcium 9.0 Troponin I High Sens 382.4 H* Triglycerides 70 Cholesterol 99 LDL Cholesterol, Calc 34.0 VLDL Cholesterol 14.0 HDL Cholesterol 51 Cholesterol/HDL Ratio 1.9 Vitamin B12 1963 H TSH 0.729 Urine Color Lt. yellow Urine Clarity Clear Urine pH 6.0 Ur Specific [place] 1.010 Urine Protein Trace Urine Glucose (UA) Negative Urine Ketones Negative Urine Occult Blood Negative Urine Nitrite Negative Urine Bilirubin Negative Urine Urobilinogen 0.2 Ur Leukocyte Esterase Negative Urine RBC None seen Urine WBC None seen Ur Squamous Epith Cells None seen Urine Crystals None seen Urine Bacteria None seen Urine Casts None seen Urine Mucus None seen Ur Culture Indicated? Already ordered Preliminary micro results at discharge 10/06/24 22:52 Urine Culture - Preliminary Urine,Clean Catch Pending - Specimen sent to [facility] Discharge Plan Discharge Disposition: Xfer Acute Care Hospital Condition: Fair Discharge location: [facility] for Heart Cath
[2024-10-07] MEDS: ATORVASTATIN CALCIUM 40 MG TABLET PO (21:50)
[2024-10-08] VITALS (8 sets, daily range): BP systolic 150–160; BP diastolic 66–72; PULSE 50–79; TEMP 36.5–36.8; O2SAT 94–96
[2024-10-08 05:45] LABS: Basophils Percent Auto 0.1 % (0.2-2.0); Hematocrit 33.8 % (42.0-54.0); Hemoglobin 11.3 g/dL (14.0-18.0); Immature Granulocytes Abs Auto 0.19 10^3/uL (0.00-0.03); Immature Granulocytes Pct Auto 1.2 % (0.0-0.5); Lymphocytes Absolute Auto 1.7 10^3/uL (1.2-3.8); Lymphocytes Percent Auto 10.7 % (20.5-60.0); Mean Corpuscular HGB Conc 33.4 g/dL (29.9-35.2); Mean Corpuscular Volume 86.9 fL (80.0-94.0); Monocytes Absolute Auto 0.9 10^3/uL (0.3-0.8); Monocytes Percent Auto 6.1 % (1.7-12.0); Neutrophils Absolute Auto 12.6 10^3/uL (1.4-6.5); Neutrophils Percent Auto 81.9 % (43.0-75.0); Platelet Count 279 10^3/uL (150-450); Red Blood Count 3.89 10^6/uL (4.70-6.10); Red Cell Distribution Width 15.4 % (11.0-15.0); White Blood Count 15.4 10^3/uL (4.0-11.0)
[2024-10-08 05:59] LABS: Anion Gap 17.9; BUN Creatinine Ratio 31.8; Carbon Dioxide 22.3 mmol/L (21.0-32.0); Chloride 104 mmol/L (98-107); Estimated GFR (African America >60 (>=60 mL/min/1.73m^2); Estimated GFR (Non-African Ame >60 (>=60 mL/min/1.73m^2); Glucose 166 mg/dL (74-106); Potassium 4.2 mmol/L (3.5-5.1); Sodium 140 mmol/L (136-145)
[2024-10-08] MEDS: OXYBUTYNIN chloride 5 MG TABLET PO (08:13)
[2024-10-08] MEDS: METOPROLOL SUCCINATE 50 MG TAB.ER.24H PO (08:13)
[2024-10-08] MEDS: PREDNISONE 20 MG TABLET 40 MG PO (08:14)
[2024-10-08] MEDS: AZITHROMYCIN 250 MG TABLET PO (08:14)
[2024-10-08] MEDS: CALCIUM CARBONATE 600 MG/VITAMIN D3 400 IU TABLET 1 TAB PO (08:14)
[2024-10-08] MEDS: EZETIMIBE 10 MG TABLET PO (08:14)
[2024-10-08] MEDS: RANOLAZINE 500 MG TAB.ER.12H PO (08:14)
[2024-10-08] MEDS: FOLIC ACID/VIT B6/VIT B12 TABLET 1 TAB PO (08:14)
--- NOTE | 2024-10-08 08:53 | SWNOTE1 ---
Plan is for pt to be transferred to higher level of care.
--- NOTE | 2024-10-08 10:36 | CM.NOTE ---
Rounds made with Dr. Johnston. Dr. Johnston discussing plan of care with Mr. Sanchez and friend on phone. Plan for transfer to Tertiary Facility approx 1215 for further Cardiac Intervention. All questions answered by Dr. Johnston.
== END 2024-10-08 11:57 | disposition short-term general hospital (02) | DRG 202 ==
LOC: ER 16:28 → MS 18:52
PROVIDERS: Nurse Practitioner; Admitting Provider Family Medicine; Emergency Provider Emergency Medicine; PCP Family Medicine; Visit Provider Family Medicine
DX: J20.9 Acute bronchitis, unspecified (principal); I21.4 Non-ST elevation (NSTEMI) myocardial infarction; I50.42 Chronic combined systolic (congestive) and diastolic (congestive) heart failure; J44.0 Chronic obstructive pulmonary disease with (acute) lower respiratory infection; I69.954 Hemiplegia and hemiparesis following unspecified cerebrovascular disease affecting left non-dominant side; I13.0 Hypertensive heart and chronic kidney disease with heart failure and stage 1 through stage 4 chronic kidney disease, or unspecified chronic kidney disease; R00.1 Bradycardia, unspecified; Z87.440 Personal history of urinary (tract) infections; I25.5 Ischemic cardiomyopathy; Z91.81 History of falling; M25.552 Pain in left hip; C61 Malignant neoplasm of prostate; E86.0 Dehydration; E78.00 Pure hypercholesterolemia, unspecified; F32.A Depression, unspecified; N32.89 Other specified disorders of bladder; R53.1 Weakness; Z79.82 Long term (current) use of aspirin; Z79.02 Long term (current) use of antithrombotics/antiplatelets; I25.118 Atherosclerotic heart disease of native coronary artery with other forms of angina pectoris; E66.9 Obesity, unspecified; N18.31 Chronic kidney disease, stage 3a; Z87.891 Personal history of nicotine dependence; Z79.899 Other long term (current) drug therapy; Z68.34 Body mass index [BMI] 34.0-34.9, adult
CPT/HCPCS: 36415; 70450; 71045; 73502; 73552; 80048; 80053; 80061; 81001; 82550; 82607; 83036; 83735; 83874; 83880; 84436; 84443; 84484; 85025; 85610; 87045; 87046; 87070; 87086; 87205; 87420; 87427; 87493; 87804; 87811; 93005; 93306; 94640; 94667; 94668; 94761; 97116; 97161; 97165; 97530; 99285; G0328; J0360; J2919; J3475; J7512

== ENCOUNTER 2025-03-25 07:20 | Outpatient (RCR) | payer MEDICARE, SELFPAY ==
--- NOTE | 2024-11-26 14:15 | CR1_ITS ---
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 Interpretive Statements Patient may continue cardiac rehab as outlined in the treatment plan. Electronically Signed On 12-06-2024 10:21:58 EDT by ZAC RUSSO M.D.
--- NOTE | 2024-12-02 08:45 | CR1_ITS ---
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 Interpretive Statements Patient may continue cardiac rehab as outlined in the treatment plan. Electronically Signed On 12-06-2024 10:24:51 EDT by ZAC RUSSO M.D.
--- NOTE | 2024-12-23 13:29 | CR1_ITS ---
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 Order Number: [id number] Sharon MD: Wilberto Campbell Interpretive Statements Session Date: Electronically Signed On 12-27-2024 13:28:31 EDT by Wiblerto Campbell
--- NOTE | 2025-01-06 13:38 | PC.NURSE ---
out reached patient to follow up on cancer treatments and doctors appointments. patient to return next week
--- NOTE | 2025-01-20 08:01 | CR1_ITS ---
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 Order Number: [id number] Sharon MD: ZAC RUSSO M.D. Interpretive Statements Patient may continue cardiac rehab as outlined in the treatment plan. Electronically Signed On 01-20-2025 17:20:00 EDT by ZAC RUSSO M.D.
--- NOTE | 2025-02-19 07:32 | CR1_ITS ---
The [facility] Test Date: 2025-02-19 Pat Name: FLACO ACOSTA Department: Room: - Gender: Male Account Information Clerk: : 1945 Requested By: ZAC RUSSO M.D. Order Number: [id number] Sharon MD: ZAC RUSSO M.D. Interpretive Statements Patient may continue cardiac rehab as outlined in the treatment plan. Electronically Signed On 02-20-2025 0:07:22 EDT by ZAC RUSSO M.D.
--- NOTE | 2025-03-21 09:59 | CR1_ITS ---
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 Order Number: [id number] Sharon MD: ZAC RUSSO M.D. Interpretive Statements Patient may continue cardiac rehab as outlined in the treatment plan. Electronically Signed On 03-21-2025 17:43:50 EST by ZAC RUSSO M.D.
--- NOTE | 2025-03-25 13:14 | CR1_ITS ---
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 Order Number: [id number] Sharon MD: ZAC RUSSO M.D. Interpretive Statements Patient has completed rehab program and have noted outcomes. Electronically Signed On 03-25-2025 22:13:05 EST by ZAC RUSSO M.D.
== END 2025-03-25 13:17 | disposition home or self-care (01) ==
LOC: CR 07:20
PROVIDERS: PCP Family Medicine; Visit Provider Internal Medicine Interventional Cardiology
DX: I25.10 Atherosclerotic heart disease of native coronary artery without angina pectoris (principal); Z98.61 Coronary angioplasty status
CPT/HCPCS: 93798